=== PATIENT | male | born 1970 | race Native Hawaiian/Other Pacific Islander ===

== ENCOUNTER 2017-01-26 11:38 | Inpatient (IN) | payer OTHER ==
[2017-01-26] MEDS ORDERED: ZOFRAN IV ONE (12:15)
[2017-01-26] MEDS ORDERED: NACL 0.9% 1000 ML 1,000 ML IV ONE (12:15)
--- NOTE | 2017-01-26 12:21 | Emergency Department Report ---
- General Chief complaint: Hyperglycemia Stated complaint: DKA Time Seen by Provider: 01/26/17 12:04 Source: patient, EMS, spanish medical interpreter Mode of arrival: Stretcher Limitations: Language Barrier - History of Present Illness MD Complaint: generalized weakness, lack of energy -: Gradual Location: generalized Severity scale (0 -10): 6 Consistency: constant Improves with: none Worsens with: none Context: other (out of insulin for the last 6 months) Associated Symptoms: nausea/vomiting, syncope. denies: chest pain, confusion, dark stools, diaphoresis, dysuria, easy bruising, fever/chills, headaches, loss of appetite, shortness of breath - Related Data Home Medications Medication Instructions Recorded Confirmed Last Taken Insulin NPH Hum/Reg Insulin Hm 25 unit SQ BID 01/26/17 01/26/17 Unknown [HumuLIN 70-30 Vial] Allergies Allergy/AdvReac Type Severity Reaction Status Date / Time No Known Allergies Allergy Unverified 01/26/17 11:47 ED Review of Systems ROS: Stated complaint: DKA Other details as noted in HPI Comment: All other systems reviewed and negative ED Past Medical Hx - Past Medical History Previous Medical History?: Yes Hx Diabetes: Yes - Surgical History Past Surgical History?: No - Social History Smoking Status: Never Smoker Substance Use Type: None - Medications Home Medications: Home Medications Medication Instructions Recorded Confirmed Last Taken Type Insulin NPH Hum/Reg Insulin Hm 25 unit SQ BID 01/26/17 01/26/17 Unknown History [HumuLIN 70-30 Vial] ED Physical Exam - General Limitations: Language Barrier General appearance: alert, in no apparent distress - Head Head exam: Present: atraumatic, normocephalic - Eye Eye exam: Present: normal appearance, PERRL, EOMI - Neck Neck exam: Present: normal inspection - Respiratory Respiratory exam: Present: normal lung sounds bilaterally - Cardiovascular Cardiovascular Exam: Present: tachycardia - GI/Abdominal GI/Abdominal exam: Present: soft - exam: Present: normal inspection - Extremities Exam Extremities exam: Present: normal inspection, full ROM - Neurological Exam Neurological exam: Present: alert, altered, oriented X3, CN II-XII intact - Psychiatric Psychiatric exam: Present: normal affect ED Course Vital Signs 01/26/17 01/26/17 01/26/17 11:48 12:08 14:19 Temperature 97.4 F L 98.1 F 98.7 F Pulse Rate 101 H 104 H 107 H Respiratory 26 H 26 H Rate Blood Pressure 143/93 Blood Pressure 141/77 113/68 [Left] O2 Sat by Pulse 96 96 96 Oximetry ED Medical Decision Making - Lab Data Result diagrams: 01/26/17 12:23 01/26/17 15:11 - EKG Data When compared to previous EKG there are: no significant change Interpretation: no acute changes - Medical Decision Making Will need admisison for DKA , already on protocol, fluids and insulin given here , will monitor his K, talk to dr. thorpe and agree with admission, pt doing well and stable, Critical care time in (mins) excluding proc time.: 45 Critical care attestation.: If time is entered above; I have spent that time in minutes in the direct care of this critically ill patient, excluding procedure time. ED Disposition Clinical Impression: DKA (diabetic ketoacidoses) Disposition: OP ADMITTED IP TO THIS HOSP Is pt being admited?: Yes Does the pt Need Aspirin: No Condition: Critical Instructions: Diabetic Ketoacidosis (ED) Referrals: PRIMARY CARE, [Primary Care Provider] - 3-5 Days Time of Disposition: 14:47
[2017-01-26 12:46] LABS: Basophils % (Auto) 0.2 % (0.0-1.8); Hematocrit 34.1 % (35.5-45.6); Hemoglobin 11.2 gm/dl (11.8-15.2); Mean Corpuscular HGB Conc 33 % (32-34); Mean Corpuscular Hemoglobin 31 pg (28-32); Mean Corpuscular Volume 95 fl (84-94); Platelet Count 164 K/mm3 (140-440); Red Blood Count 3.59 M/mm3 (3.65-5.03); Red Cell Distribution Width 13.3 % (13.2-15.2); White Blood Count 9.2 K/mm3 (4.5-11.0)
[2017-01-26 12:50] LABS: Calcium 8.4 mg/dL (8.4-10.2); Chloride 87.6 mmol/L (98-107); Potassium 4.8 mmol/L (3.6-5.0)
[2017-01-26 12:50] LABS: Creatine Kinase MB 1.3 ng/mL (0.0-4.0)
--- NOTE | 2017-01-26 12:56 | XRay Report ---
ROUTINE CHEST, TWO VIEWS: HISTORY: Lightheadedness, dizziness. There is poor inspiration with mild bibasilar atelectasis. No consolidation, large pleural effusion or pneumothorax is identified. Normal heart size and pulmonary vascularity. IMPRESSION: No acute cardiopulmonary process.
[2017-01-26] MEDS ORDERED: NACL 0.9% 1000 ML 2,000 ML IV ONE (13:31)
[2017-01-26] MEDS ORDERED: D50W (25GM) IV PRN ×2 (13:33→20:43)
[2017-01-26] MEDS ORDERED: NovoLIN R 100 UNITS in NACL 0.9% 99 ML IV SCH (14:00)
--- NOTE | 2017-01-26 14:36 | Admit Criteria Form ---
Admission Criteria Documentation: DIABETES Clinical Indications for Admission to Inpatient Care (Place 'X' for any and all applicable criteria): Admission is indicated by presence of ALL (if I & II) or ANY ONE (if III or IV) of the following (1)(2)(3)(4): [X ]I. Diabetes is uncontrolled as indicated by ANY ONE of the following: [X ]a) Diabetic ketoacidosis as indicated by ALL of the following (8): [X ]i) Hyperglycemia (eg, plasma glucose greater than 200 mg /dL (11.1 mmol/L)) [X ]ii) Acidosis (eg, arterial pH less than 7.30, serum bicarbonate level less than 15 mEq/L (mmol/L)) [X ]iii) Moderate ketonuria or ketonemia [ ]b) Hyperglycemic hyperosmolar state as indicated by ALL of the following(9)(10): [ ]i) Neurologic dysfunction (eg, stupor, coma, hemiparesis , seizure)(13) [ ]ii) Plasma glucose greater than 600 mg/dL (33.3 mmol/L) [ ]iii) Serum osmolality greater than 320 mOsm/kg (mmol/kg) [ ]c) Severe signs or symptoms secondary to hyperglycemia indicated by ANY ONE of the following: [ ]i) Altered mental status(10) [ ]ii) Significant hypovolemia or dehydration [ ]iii) Intractable nausea or vomiting [ ]iv) Unexplained fever or severe infection [ ]v) Severe electrolyte abnormality (eg, hypokalemia, hyperkalemia, hypernatremia) [X ]II. Management at other levels of care (Also use Diabetes: Observation Care as appropriate) is not feasible because of ANY ONE of the following: [ X]a) Condition was not adequately corrected with treatment at other levels of care. [ ]b) Treatment at other levels of care is not appropriate because of condition severity (eg, hyperosmolar coma). [ ]III. Contraindications and/or Inappropriate clinical situations for Observational Care in patients with Diabetes, when ANY ONE of the following is required: [ ]a) Patient require specific diagnostic workup or therapeutic intervention 22 [ ]b) Patient with abnormal vital signs or altered mental status 23 [ ]IV. General contraindications and/or Inappropriate clinical situations for Observational Care in patients with Diabetes, when ANY ONE of the following is required: [ ]a) Prediction of prolongation of LOS based on ANY ONE of the following may be considered as a contraindication for observational care 2, 3, 4, 5, 6, 7, 8, 9, 10, 11 [ ]i) Age > 65 yrs. [ ]ii) Patient arriving by ambulance [ ]iii) Patient with high acuity [ ]iv) Patient requiring vital sign monitoring [ ]v) Patient on IV medication [ ]b) Systolic blood pressures 180mmHg 3,12 [ ]c) Patient with altered mental status including delirium and other alteration of consciousness, (3) [ ]d) Patient whose discharge disposition will be to a halfway home or rehabilitation home should not be managed in Emergency Department Observation Unit. CMS rule requires 3 days hospital stay before such placement.3,13 [ ]e) Patient with failure to thrive due to broad array of etiologies 3,16,17 [ ]f) Inability to ambulate 3,14 Extended stay beyond goal length of stay may be needed for(3)(20): [ ]a) Treatment of precipitating causes [ ]b) Development of hypoglycemia [ ]c) Complications of treatment [ ]d) Complications of decompensated diabetes (eg, acute gastric dilatation, persistent metabolic or neurologic derangement) [ ]e) Active Comorbidities [ ]f) Older patients( 65 years or older) The original [employer] content created by [employer] has been revised. The portions of the content which have been revised are identified through the use of italic text or in bold,and [facility] has neither reviewed nor approved the modified material. All other unmodified content is copyright [employer]. Please see references footnoted in the original [facility] 2016 Admission Criteria Met: Yes
[2017-01-26 14:50] LABS: Magnesium 1.9 mg/dL (1.7-2.3); Phosphorous 3.3 mg/dL (2.5-4.5)
[2017-01-26 15:59] LABS: Calcium 7.7 mg/dL (8.4-10.2); Chloride 98.3 mmol/L (98-107); Potassium 4.1 mmol/L (3.6-5.0)
[2017-01-26 16:18] LABS: Bacteria,Urine 1+ /HPF (Negative); Bilirubin,Urine NEG (Negative); Blood,Urine SM (Negative); Ketones,Urine 80 mg/dL (Negative); Leukocyte Esterase,Urine NEG (Negative); Mucus,Urine FEW /HPF; Nitrite,Urine NEG (Negative); Urobilinogen,Urine < 2.0 mg/dL (<2.0)
[2017-01-26 17:57] LABS: Calcium 7.6 mg/dL (8.4-10.2); Chloride 96.6 mmol/L (98-107)
[2017-01-26 19:39] LABS: Anion Gap 28 mmol/L; Blood Urea Nitrogen 42 mg/dL (9-20); Carbon Dioxide 11 mmol/L (22-30); Chloride 96.6 mmol/L (98-107); Sodium 132 mmol/L (137-145)
[2017-01-26 19:40] LABS: Calcium 7.6 mg/dL (8.4-10.2); Glucose 418 mg/dL (75-100)
[2017-01-26] MEDS ORDERED: D5W/0.45% NACL/KCL 20 MEQ 20 MEQ/1,000 ML BAG IV SCH (20:00)
[2017-01-26 20:29] LABS: BUN/Creatinine Ratio 26.42; Calcium 7.8 mg/dL (8.4-10.2); Chloride 103.2 mmol/L (98-107); Potassium 3.8 mmol/L (3.6-5.0)
[2017-01-26] MEDS ORDERED: MILK OF MAGNESIA PO PRN (20:40)
[2017-01-26] MEDS ORDERED: ALUM-MAG HYDROX-SIMETH 200-200-20MG/5ML PO PRN (20:40)
[2017-01-26] MEDS ORDERED: DULCOLAX PR PRN (20:40)
[2017-01-26] MEDS ORDERED: DILAUDID IV PRN (20:40)
--- NOTE | 2017-01-26 20:40 | History and Physical Report ---
History of Present Illness Date of examination: 01/26/17 Date of admission: 01/26/17 Chief complaint: Generalized weakness and nausea for 2 days. History of present illness: Generalized weakness, lack of energy -: Gradual Location: generalized Severity scale (0 -10): 6 Consistency: constant Improves with: none Worsens with: none Context: other (out of insulin for the last 6 months) Associated Symptoms: nausea/vomiting, syncope. denies: chest pain, confusion, dark stools, diaphoresis, dysuria, easy bruising, fever/chills, headaches, loss of appetite, shortness of breath Past History Past Medical History: diabetes (IDDM-non compliant) Past Surgical History: valve replacement, Other Social history: lives with family, full code. denies: smoking, alcohol abuse Family history: diabetes Medications and Allergies Allergies Allergy/AdvReac Type Severity Reaction Status Date / Time No Known Allergies Allergy Unverified 01/26/17 11:47 Home Medications Medication Instructions Recorded Confirmed Last Taken Type Insulin NPH Hum/Reg Insulin Hm 25 unit SQ BID 01/26/17 01/26/17 Unknown History [HumuLIN 70-30 Vial] Active Meds: Active Medications Dextrose (D50w (25gm)) 0 ml IV ONCE PRN PRN Reason: Hypoglycemia Insulin Human Regular 100 (units/ Sodium Chloride) 100 mls @ 1 mls/hr IV TITR SANDHYA; 1 UNITS/HR PRN Reason: Protocol Last Titration: 01/26/17 20:37 Dose: 3 units/hr, 3 mls/hr Potassium Chloride/Dextrose/Sod Cl (D5w/0.45% Nacl/Kcl 20 Meq) 20 meq in 1,000 mls @ 125 mls/hr IV DIRECT SANDHYA Review of Systems All systems: negative Constitutional: no weight loss, no weight gain, no fever, no chills Ears, nose, mouth and throat: no dysphagia, no hoarseness, no sore throat Cardiovascular: syncope, no chest pain, no orthopnea, no lightheadedness, no shortness of breath Respiratory: no cough, no cough with sputum, no dyspnea on exertion, no congestion Gastrointestinal: nausea, vomiting (3 to 4 times) Genitourinary Male: no dysuria, no hematuria, no flank pain, no discharge, no urinary frequency, no urinary hesitancy Musculoskeletal: no neck stiffness, no neck pain Integumentary: no rash, no pruritis, no redness Neurological: syncope, no seizures Psychiatric: no anxiety, no depression Endocrine: polyphagia, excessive thirst, polydipsia, polyuria, high blood sugars , other (Non compliant) Exam - Constitutional Vitals: Temp Pulse Resp BP Pulse Ox 98.7 F 102 H 37 H 128/69 96 01/26/17 14:19 01/26/17 20:00 01/26/17 20:00 01/26/17 20:00 01/26/17 20:00 General appearance: Present: no acute distress, well-nourished - EENT Eyes: Present: PERRL ENT: hearing intact, clear oral mucosa - Neck Neck: Present: supple, normal ROM - Respiratory Respiratory effort: normal Respiratory: bilateral: CTA - Cardiovascular Heart Sounds: Present: S1 & S2. Absent: rub, click - Extremities Extremities: pulses symmetrical, No edema Peripheral Pulses: within normal limits - Abdominal General gastrointestinal: Present: soft, non-tender, non-distended, normal bowel sounds Male genitourinary: Present: normal - Integumentary Integumentary: Present: clear, warm, dry - Musculoskeletal Musculoskeletal: gait normal, strength equal bilaterally - Psychiatric Psychiatric: appropriate mood/affect, intact judgment & insight - Neurologic Neurologic: CNII-XII intact, moves all extremities Results - Labs CBC & Chem 7: 01/27/17 04:51 01/27/17 04:51 Labs: Laboratory Last Values WBC 9.2 K/mm3 (4.5-11.0) 01/26/17 12:23 RBC 3.59 M/mm3 (3.65-5.03) L 01/26/17 12:23 Hgb 11.2 gm/dl (11.8-15.2) L 01/26/17 12:23 Hct 34.1 % (35.5-45.6) L 01/26/17 12:23 MCV 95 fl (84-94) H 01/26/17 12:23 MCH 31 pg (28-32) 01/26/17 12:23 MCHC 33 % (32-34) 01/26/17 12:23 RDW 13.3 % (13.2-15.2) 01/26/17 12:23 Plt Count 164 K/mm3 (140-440) 01/26/17 12:23 Lymph % (Auto) 7.4 % (13.4-35.0) L 01/26/17 12:23 [place] % (Auto) 7.3 % (0.0-7.3) 01/26/17 12:23 Eos % (Auto) 0.0 % (0.0-4.3) 01/26/17 12:23 Baso % (Auto) 0.2 % (0.0-1.8) 01/26/17 12:23 Lymph # 0.7 K/mm3 (1.2-5.4) L 01/26/17 12:23 [place] # 0.7 K/mm3 (0.0-0.8) 01/26/17 12:23 Eos # 0.0 K/mm3 (0.0-0.4) 01/26/17 12: Baso # 0.0 K/mm3 (0.0-0.1) 01/26/17 12:23 Seg Neutrophils % 85.1 % (40.0-70.0) H 01/26/17 12:23 Seg Neutrophils # 7.8 K/mm3 (1.8-7.7) H 01/26/17 12:23 VBG pH 7.210 (7.320-7.420) L 01/26/17 12:23 Sodium 133 mmol/L (137-145) L 01/26/17 19:41 Potassium 3.8 mmol/L (3.6-5.0) 01/26/17 19:41 Chloride 103.2 mmol/L (98-107) 01/26/17 19:41 Carbon Dioxide 18 mmol/L (22-30) L D 01/26/17 19:41 Anion Gap 16 mmol/L 01/26/17 19:41 BUN 37 mg/dL (9-20) H 01/26/17 19:41 Creatinine 1.4 mg/dL (0.8-1.5) 01/26/17 19:41 Estimated GFR 55 ml/min 01/26/17 19:41 BUN/Creatinine Ratio 26.42 % 01/26/17 19:41 Glucose 221 mg/dL (75-100) H 01/26/17 19:41 POC Glucose 189 (70-105) H 01/26/17 20:33 Calcium 7.8 mg/dL (8.4-10.2) L 01/26/17 19:41 Phosphorus 3.3 mg/dL (2.5-4.5) 01/26/17 14:02 Magnesium 1.9 mg/dL (1.7-2.3) 01/26/17 14:02 Total Creatine Kinase 29 units/L (55-170) L 01/26/17 12:25 CK-MB (CK-2) 1.3 ng/mL (0.0-4.0) 01/26/17 12:25 CK-MB (CK-2) Rel Index 4.4 (0-4) H 01/26/17 12:25 Troponin T < 0.010 ng/mL (0.00-0.029) 01/26/17 12:25 Urine Color Straw (Yellow) 01/26/17 14:26 Urine Turbidity Clear (Clear) 01/26/17 14:26 Urine pH 5.0 (5.0-7.0) 01/26/17 14:26 Ur Specific [place] 1.021 (1.003-1.030) 01/26/17 14:26 Urine Protein 30 mg/dl mg/dL (Negative) 01/26/17 14:26 Urine Glucose (UA) >=500 mg/dL (Negative) 01/26/17 14:26 Urine Ketones 80 mg/dL (Negative) 01/26/17 14:26 Urine Blood Sm (Negative) 01/26/17 14:26 Urine Nitrite Neg (Negative) 01/26/17 14:26 Urine Bilirubin Neg (Negative) 01/26/17 14:26 Urine Urobilinogen < 2.0 mg/dL (<2.0) 01/26/17 14:26 Ur Leukocyte Esterase Neg (Negative) 01/26/17 14:26 Urine WBC (Auto) 2.0 /HPF (0.0-6.0) 01/26/17 14:26 Urine RBC (Auto) 4.0 /HPF (0.0-6.0) 01/26/17 14:26 Urine Bacteria (Auto) 1+ /HPF (Negative) 01/26/17 14:26 Urine Mucus Few /HPF 01/26/17 14:26 Ketones mmol/L (-0.28) 01/26/17 12:23 Short CBC 01/26/17 01/27/17 Range/Units 12:23 04:51 WBC 9.2 8.9 (4.5-11.0) K/mm3 Hgb 11.2 L 10.8 L (11.8-15.2) gm/dl Hct 34.1 L 31.8 L (35.5-45.6) % Plt Count 164 193 (140-440) K/mm3 BMP 01/26/17 01/26/17 01/26/17 12:23 14:02 15:11 Sodium 127 L 132 L 135 L Potassium 4.8 4.0 4.1 Chloride 87.6 L 96.6 L 98.3 Carbon Dioxide 11 L 11 L 12 L BUN 46 H 42 H 39 H Creatinine 2.0 H 1.5 1.5 Glucose 645 H* 418 H 358 H Calcium 8.4 7.6 L 7.7 L 01/26/17 01/26/17 01/26/17 17:58 19:41 20:52 Sodium 132 L 133 L 135 L Potassium 4.0 3.8 3.6 Chloride 96.6 L 103.2 101.8 Carbon Dioxide 11 L 18 L D 18 L BUN 42 H 37 H 34 H Creatinine 1.5 1.4 1.5 Glucose 418 H 221 H 198 H Calcium 7.6 L 7.8 L 7.9 L 01/26/17 01/27/17 01/27/17 23:19 00:55 04:51 Sodium 137 139 Potassium 3.8 3.8 Chloride 106.2 108.0 H Carbon Dioxide 14 L 14 L 19 L BUN 34 H 33 H 31 H Creatinine 1.5 1.4 1.3 Glucose 301 H 330 H 149 H Calcium 7.7 L 7.5 L 8.1 L Cardiac Enzymes 01/26/17 01/26/17 Range/Units 12:25 12:25 Total Creatine Kinase 29 L (55-170) units/L CK-MB (CK-2) 1.3 (0.0-4.0) ng/mL Troponin T < 0.010 (0.00-0.029) ng/mL Liver Function 01/27/17 Range/Units 04:51 Total Bilirubin 0.5 (0.1-1.2) mg/dL AST 7 (5-40) units/L ALT 5 L (7-56) units/L Alkaline Phosphatase 81 (35-129) units/L Albumin 2.5 L (3.9-5) g/dL Urine 01/26/17 Range/Units 14:26 Urine Color Straw (Yellow) Urine pH 5.0 (5.0-7.0) Ur Specific [place] 1.021 (1.003-1.030) Urine Protein 30 mg/dl (Negative) mg/dL Urine Glucose (UA) >=500 (Negative) mg/dL Assessment and Plan Advance Directives: Yes (Full code) VTE prophylaxis?: Chemical Plan of care discussed with patient/family: Yes - Patient Problems (1) DKA (diabetic ketoacidoses) Current Visit: Yes Status: Acute Qualifiers: Diabetes mellitus complication detail: D Plan to address problem: Very non compliant .Not taking his insulin for 6 months.Patient was not counselled b/c of language barrier.To try again tomorrow with the help of fmily or vest backer. (2) Acute renal failure Current Visit: Yes Status: Acute Qualifiers: Acute renal failure type: unspecified Qualified Code(s): N17.9 - Acute kidney failure, unspecified Plan to address problem: IV fluids for now. (3) DVT prophylaxis Current Visit: Yes Status: Acute Plan to address problem: on Lovenox
[2017-01-26 21:22] LABS: BUN/Creatinine Ratio 22.66; Calcium 7.9 mg/dL (8.4-10.2); Chloride 101.8 mmol/L (98-107); Magnesium 1.9 mg/dL (1.7-2.3); Phosphorous 1.8 mg/dL (2.5-4.5); Potassium 3.6 mmol/L (3.6-5.0)
[2017-01-26] MEDS: DILAUDID IV PRN (23:41)
[2017-01-26] MEDS: ZOFRAN IV PRN (23:41)
[2017-01-27 00:05] LABS: BUN/Creatinine Ratio 22.66; Calcium 7.7 mg/dL (8.4-10.2); Chloride 99.4 mmol/L (98-107)
[2017-01-27] MEDS: NovoLIN R 100 UNITS in NACL 0.9% 99 ML IV SCH ×3 (00:26→06:30)
[2017-01-27 01:47] LABS: BUN/Creatinine Ratio 23.57; Calcium 7.5 mg/dL (8.4-10.2); Chloride 106.2 mmol/L (98-107); Potassium 3.8 mmol/L (3.6-5.0)
[2017-01-27 05:27] LABS: Basophils % (Auto) 0.2 % (0.0-1.8); Hematocrit 31.8 % (35.5-45.6); Hemoglobin 10.8 gm/dl (11.8-15.2); Mean Corpuscular HGB Conc 34 % (32-34); Mean Corpuscular Hemoglobin 31 pg (28-32); Platelet Count 193 K/mm3 (140-440); Red Blood Count 3.49 M/mm3 (3.65-5.03); Red Cell Distribution Width 12.7 % (13.2-15.2); White Blood Count 8.9 K/mm3 (4.5-11.0)
[2017-01-27 05:51] LABS: Albumin 2.5 g/dL (3.9-5); Albumin/Globulin Ratio 0.7 %; BUN/Creatinine Ratio 23.84; Bilirubin,Total 0.5 mg/dL (0.1-1.2); Calcium 8.1 mg/dL (8.4-10.2); Potassium 3.8 mmol/L (3.6-5.0)
[2017-01-27 06:06] LABS: Mean Corpuscular Volume 93 fl (84-94)
[2017-01-27 09:19] LABS: Magnesium 1.9 mg/dL (1.7-2.3); Phosphorous 1.1 mg/dL (2.5-4.5)
[2017-01-27] MEDS ORDERED: SODIUM PHOSPHATE 45 MMOL in NACL 0.9% 500 ML 500 ML IV ONE (10:00)
--- NOTE | 2017-01-27 11:06 | Consultation ---
History of Present Illness Consult date: 01/27/17 Requesting physician: PUSHPA WORKMAN Reason for consult: other (DKA) History of present illness: PULMONARY CONSULT NOTE (Full dictation # [id number]) please see dictated notes for full details Past History Past Medical History: diabetes (IDDM-non compliant) Past Surgical History: valve replacement, Other Social history: lives with family, full code. denies: smoking, alcohol abuse Family history: diabetes Medications and Allergies Allergies Allergy/AdvReac Type Severity Reaction Status Date / Time No Known Allergies Allergy Unverified 01/26/17 11:47 Home Medications Medication Instructions Recorded Confirmed Last Taken Type Insulin NPH Hum/Reg Insulin Hm 25 unit SQ BID 01/26/17 01/26/17 Unknown History [HumuLIN 70-30 Vial] Active Meds: Active Medications Al Hydrox/Mg Hydrox/Simethicone (Alum-Mag Hydrox-Simeth [phone]/5ml) 30 ml PO Q4H PRN PRN Reason: Indigestion Bisacodyl (Dulcolax) 10 mg AK QDAY PRN PRN Reason: constipation unrelieved by MOM Dextrose (D50w (25gm)) 0 ml IV PRN PRN PRN Reason: Hypoglycemia Hydromorphone HCl (Dilaudid) 0.5 mg IV Q3H PRN PRN Reason: Pain , Severe (7-10) Last Admin: 01/26/17 23:41 Dose: 0.5 mg Potassium Chloride/Dextrose/Sod Cl (D5w/0.45% Nacl/Kcl 20 Meq) 20 meq in 1,000 mls @ 125 mls/hr IV DIRECT SANDHYA Last Admin: 01/26/17 19:40 Dose: 125 mls/hr Insulin Human Regular 100 (units/ Sodium Chloride) 100 mls @ 1 mls/hr IV TITR SANDHYA; 1 UNITS/HR PRN Reason: Protocol Last Admin: 01/27/17 06:30 Dose: 2 units/hr, 2 mls/hr Sodium Phosphate 45 mmol/ (Sodium Chloride) 515 mls @ 84 mls/hr IV ONCE ONE Stop: 01/27/17 16:07 Potassium Phosphate 15 mmol/ (Sodium Chloride) 255 mls @ 125 mls/hr IV ONCE ONE Stop: 01/27/17 20:02 Insulin Aspart (Novolog) 0 units SUB-Q ACHS SANDHYA PRN Reason: Protocol Insulin Human Isoph/Insulin Regular (Novolin 70/30) 10 unit SUB-Q BIDDIAB SANDHYA Magnesium Hydroxide (Milk Of Magnesia) 30 ml PO Q4H PRN PRN Reason: Constipation Ondansetron HCl (Zofran) 4 mg IV Q4H PRN PRN Reason: Nausea And Vomiting Last Admin: 01/26/17 23:41 Dose: 4 mg Physical Examination Vital signs: Vital Signs Temp Pulse BP Pulse Ox 97.4 F L 101 H 143/93 96 01/26/17 11:48 01/26/17 11:48 01/26/17 11:48 01/26/17 11:48 Results - Laboratory Findings CBC and BMP: 01/27/17 04:51 01/27/17 04:51 Abnormal lab findings: Abnormal Labs 01/26/17 01/26/17 01/26/17 20:52 20:52 23:09 RBC Hgb Hct RDW Lymph % (Auto) [place] % (Auto) Lymph # [place] # Seg Neutrophils % Sodium 135 L Chloride Carbon Dioxide 18 L BUN 34 H Glucose 198 H POC Glucose 384 H Hemoglobin A1c Calcium 7.9 L Phosphorus 1.8 L D ALT Total Protein Albumin 01/26/17 01/27/17 01/27/17 23:19 00:22 00:55 RBC Hgb Hct RDW Lymph % (Auto) [place] % (Auto) Lymph # [place] # Seg Neutrophils % Sodium Chloride Carbon Dioxide 14 L 14 L BUN 34 H 33 H Glucose 301 H 330 H POC Glucose 339 H Hemoglobin A1c Calcium 7.7 L 7.5 L Phosphorus ALT Total Protein Albumin 01/27/17 01/27/17 01/27/17 01:22 02:39 03:47 RBC Hgb Hct RDW Lymph % (Auto) [place] % (Auto) Lymph # [place] # Seg Neutrophils % Sodium Chloride Carbon Dioxide BUN Glucose POC Glucose 301 H 261 H 223 H Hemoglobin A1c Calcium Phosphorus ALT Total Protein Albumin 01/27/17 01/27/17 01/27/17 04:32 04:51 04:51 RBC 3.49 L Hgb 10.8 L Hct 31.8 L RDW 12.7 L Lymph % (Auto) 10.1 L [place] % (Auto) 10.4 H Lymph # 0.9 L [place] # 0.9 H Seg Neutrophils % 79.3 H Sodium Chloride 108.0 H Carbon Dioxide 19 L BUN 31 H Glucose 149 H POC Glucose 165 H Hemoglobin A1c Calcium 8.1 L Phosphorus ALT 5 L Total Protein 6.0 L Albumin 2.5 L 01/27/17 01/27/17 08:29 08:29 RBC Hgb Hct RDW Lymph % (Auto) [place] % (Auto) Lymph # [place] # Seg Neutrophils % Sodium Chloride Carbon Dioxide BUN Glucose POC Glucose Hemoglobin A1c 16.1 H Calcium Phosphorus 1.1 L D ALT Total Protein Albumin
[2017-01-27] MEDS ORDERED: NOVOLOG SUB-Q SCH (11:30)
[2017-01-27] MEDS ORDERED: PROVENTIL IH PRN (11:47)
[2017-01-27] MEDS: DILAUDID IV PRN ×2 (12:50→20:45)
--- NOTE | 2017-01-27 12:51 | Progress Note ---
Assessment and Plan Assessment and plan: --Diabetic ketoacidosis On insulin drip, patient blood sugars are reasonable control A gap Closed, acidosis significant improvement Patient is tolerating oral diet Will DC insulin drip, start long-acting insulin 7030, Accu-Chek sliding scale coverage and ADA diet Diabetic education, hemoglobin A1c 16.1 Case management to assist with home health nurse to monitor blood sugars --Hypophosphatemia Replace per protocol and monitor levels --Acute renal failure Probably prerenal, secondary to ATN Mild improvement, continue vigorous IV hydration, closely monitor renal function Avoid nephrotoxic medication, nephrology following --Moderate protein calorie malnutrition Supportive care nutrition supplements --Medical non-compliance Counseling done patient strongly advised to adhere to diet and treatment plan Verbalized understanding --DC planning per case management Patient's condition treatment plan discussed in detail with the patient His nurse and the case management Closely monitor blood sugars, if reasonable levels, patient can be transferred out of ICU Possible discharge in 1-2 days if stable Critical care time 32 minutes History Interval history: Patient seen and evaluated in the ICU and medical records reviewed No new events reported by the nursing staff Admitted with DKA on insulin drip Blood sugars are reasonable levels Patient is alert awake oriented 3, mild nausea no vomiting, denies any headache or dizziness Hospitalist Physical - Constitutional Vitals: Temp Pulse Resp BP Pulse Ox 98.5 F 105 H 23 106/64 93 01/27/17 08:00 01/27/17 07:10 01/27/17 07:10 01/27/17 07:10 01/27/17 12:22 General appearance: Present: no acute distress, well-nourished - EENT Eyes: Present: PERRL, EOM intact - Neck Neck: Present: supple, normal ROM - Respiratory Respiratory effort: normal Respiratory: bilateral: diminished, negative: rales, rhonchi, wheezing - Cardiovascular Rhythm: regular Heart Sounds: Present: S1 & S2 - Extremities Extremities: no ischemia, pulses intact, pulses symmetrical Peripheral Pulses: within normal limits - Abdominal General gastrointestinal: soft, non-tender, non-distended, normal bowel sounds - Integumentary Integumentary: Present: clear, warm - Psychiatric Psychiatric: appropriate mood/affect, cooperative - Neurologic Neurologic: CNII-XII intact, moves all extremities Results - Labs CBC & Chem 7: 01/27/17 04:51 01/27/17 04:51 Labs: Laboratory Last Values WBC 8.9 K/mm3 (4.5-11.0) 01/27/17 04:51 RBC 3.49 M/mm3 (3.65-5.03) L 01/27/17 04:51 Hgb 10.8 gm/dl (11.8-15.2) L 01/27/17 04:51 Hct 31.8 % (35.5-45.6) L 01/27/17 04:51 MCV 93 fl (84-94) 01/27/17 04:51 MCH 31 pg (28-32) 01/27/17 04:51 MCHC 34 % (32-34) 01/27/17 04:51 RDW 12.7 % (13.2-15.2) L 01/27/17 04:51 Plt Count 193 K/mm3 (140-440) 01/27/17 04:51 Lymph % (Auto) 10.1 % (13.4-35.0) L 01/27/17 04:51 [place] % (Auto) 10.4 % (0.0-7.3) H 01/27/17 04:51 Eos % (Auto) 0.0 % (0.0-4.3) 01/27/17 04:51 Baso % (Auto) 0.2 % (0.0-1.8) 01/27/17 04:51 Lymph # 0.9 K/mm3 (1.2-5.4) L 01/27/17 04:51 [place] # 0.9 K/mm3 (0.0-0.8) H 01/27/17 04:51 Eos # 0.0 K/mm3 (0.0-0.4) 01/27/17 04:51 Baso # 0.0 K/mm3 (0.0-0.1) 01/27/17 04:51 Seg Neutrophils % 79.3 % (40.0-70.0) H 01/27/17 04:51 Seg Neutrophils # 7.0 K/mm3 (1.8-7.7) 01/27/17 04:51 VBG pH 7.210 (7.320-7.420) L 01/26/17 12:23 Sodium 139 mmol/L (137-145) 01/27/17 04:51 Potassium 3.8 mmol/L (3.6-5.0) 01/27/17 04:51 Chloride 108.0 mmol/L (98-107) H 01/27/17 04:51 Carbon Dioxide 19 mmol/L (22-30) L 01/27/17 04:51 Anion Gap 16 mmol/L 01/27/17 04:51 BUN 31 mg/dL (9-20) H 01/27/17 04:51 Creatinine 1.3 mg/dL (0.8-1.5) 01/27/17 04:51 Estimated GFR 59 ml/min 01/27/17 04:51 BUN/Creatinine Ratio 23.84 % 01/27/17 04:51 Glucose 149 mg/dL (75-100) H 01/27/17 04:51 POC Glucose 165 (70-105) H 01/27/17 04:32 Hemoglobin A1c 16.1 % (4-6) H 01/27/17 08:29 Calcium 8.1 mg/dL (8.4-10.2) L 01/27/17 04:51 Phosphorus 1.1 mg/dL (2.5-4.5) L D 01/27/17 08:29 Magnesium 1.9 mg/dL (1.7-2.3) 01/27/17 08:29 Total Bilirubin 0.5 mg/dL (0.1-1.2) 01/27/17 04:51 AST 7 units/L (5-40) 01/27/17 04:51 ALT 5 units/L (7-56) L 01/27/17 04:51 Alkaline Phosphatase 81 units/L (35-129) 01/27/17 04:51 Total Creatine Kinase 29 units/L (55-170) L 01/26/17 12:25 CK-MB (CK-2) 1.3 ng/mL (0.0-4.0) 01/26/17 12:25 CK-MB (CK-2) Rel Index 4.4 (0-4) H 01/26/17 12:25 Troponin T < 0.010 ng/mL (0.00-0.029) 01/26/17 12:25 Total Protein 6.0 g/dL (6.3-8.2) L 01/27/17 04:51 Albumin 2.5 g/dL (3.9-5) L 01/27/17 04:51 Albumin/Globulin Ratio 0.7 % 01/27/17 04:51 Urine Color Straw (Yellow) 01/26/17 14:26 Urine Turbidity Clear (Clear) 01/26/17 14:26 Urine pH 5.0 (5.0-7.0) 01/26/17 14:26 Ur Specific [place] 1.021 (1.003-1.030) 01/26/17 14:26 Urine Protein 30 mg/dl mg/dL (Negative) 01/26/17 14:26 Urine Glucose (UA) >=500 mg/dL (Negative) 01/26/17 14:26 Urine Ketones 80 mg/dL (Negative) 01/26/17 14:26 Urine Blood Sm (Negative) 01/26/17 14:26 Urine Nitrite Neg (Negative) 01/26/17 14:26 Urine Bilirubin Neg (Negative) 01/26/17 14:26 Urine Urobilinogen < 2.0 mg/dL (<2.0) 01/26/17 14:26 Ur Leukocyte Esterase Neg (Negative) 01/26/17 14:26 Urine WBC (Auto) 2.0 /HPF (0.0-6.0) 01/26/17 14:26 Urine RBC (Auto) 4.0 /HPF (0.0-6.0) 01/26/17 14:26 Urine Bacteria (Auto) 1+ /HPF (Negative) 01/26/17 14:26 Urine Mucus Few /HPF 01/26/17 14:26 Ketones mmol/L (-0.28) 01/26/17 12:23
[2017-01-27 14:11] LABS: Anion Gap 14 mmol/L; BUN/Creatinine Ratio 21.81; Blood Urea Nitrogen 24 mg/dL (9-20); Calcium 7.5 mg/dL (8.4-10.2); Carbon Dioxide 18 mmol/L (22-30); Chloride 104.4 mmol/L (98-107); Glucose 223 mg/dL (75-100); Potassium 3.5 mmol/L (3.6-5.0); Sodium 133 mmol/L (137-145)
[2017-01-27 14:43] LABS: ISTAT Base Excess -9; ISTAT HCO3 16.8; ISTAT PCO2 30.6 (35-45); ISTAT PH 7.348 (7.35-7.45); ISTAT PO2 51 (80-105); ISTAT SO2 84; ISTAT TCO2 18
[2017-01-27 16:52] LABS: Anion Gap 17 mmol/L; BUN/Creatinine Ratio 19.16; Blood Urea Nitrogen 23 mg/dL (9-20); Calcium 7.9 mg/dL (8.4-10.2); Carbon Dioxide 19 mmol/L (22-30); Chloride 102.1 mmol/L (98-107); Glucose 200 mg/dL (75-100); Potassium 3.4 mmol/L (3.6-5.0); Sodium 135 mmol/L (137-145)
[2017-01-27] MEDS ORDERED: KPHOS 15 MMOL in NACL 0.9% 250ML 250 ML IV ONE (18:00)
[2017-01-27] MEDS: LOVENOX SUB-Q SCH (20:20)
[2017-01-27 20:53] LABS: Anion Gap 18 mmol/L; BUN/Creatinine Ratio 19.09; Blood Urea Nitrogen 21 mg/dL (9-20); Calcium 7.4 mg/dL (8.4-10.2); Carbon Dioxide 18 mmol/L (22-30); Chloride 102.2 mmol/L (98-107); Glucose 246 mg/dL (75-100); Potassium 3.4 mmol/L (3.6-5.0); Sodium 135 mmol/L (137-145)
--- NOTE | 2017-01-27 23:55 | Consultation ---
CONSULTING PHYSICIAN: Bonnie Moore MD REASON FOR CONSULTATION: Need for ICU admission for IV insulin therapy, DKA. CHIEF COMPLAINT AND HISTORY OF PRESENT ILLNESS: The patient is a 46-year-old male with past medical history according to records significant for a diagnosis of diabetes, although the patient denies ever knowing that he has diabetes. Apparently, he is noncompliant with his medications and has not been using it for about 6 months, came into the Emergency Room complaining of nausea, vomiting, generalized weakness, generalized body aches. He was evaluated in the Emergency Room. The exam was consistent with diabetic ketoacidosis. He required IV insulin therapy. Request was made for ICU admission, it was granted. When I stopped by to see him, he was laying in bed. He was on about 2-3 liters of oxygen by nasal cannula and his oxygen sats were around 87-88%. He did admit to nausea and vomiting prior to admission, could not tell about overt aspiration. He denied any chest pains in particular. He has a remote tobacco smoking history, he tells me about less than 10 pack years. That really is as much of the history of presentation as I have. PAST MEDICAL HISTORY: Again, significant for a diagnosis of diabetes. PAST SURGICAL HISTORY: He has had some what is described as a valve replacement. It is unclear what valve. MEDICATIONS: He was on at the time I stopped by to see him, according to the medication administration record included the following: He was on p.r.n. milk of magnesia, Dulcolax 10 mg per rectum daily p.r.n., p.r.n. Dilaudid 0.5 mg IV q.3h. p.r.n. severe pain. He had been on an insulin drip, I think about 4 units per hour, about to start 70/30 insulin. Zofran 4 mg IV q.4h. p.r.n. He had potassium phosphate replacement. ALLERGIES: No known drug allergies. DIET: Petite gentleman. Denies significant weight loss or gain in preceding few weeks to months. FAMILY AND SOCIAL HISTORY: Lives in the community with the family, has a less than 10 pack year tobacco smoking history. Denies alcohol or illicit drug use or abuse. There is a family history of diabetes. REVIEW OF SYSTEMS: No loss of consciousness. No new onset seizures. No new onset focal weakness. No gross hematochezia or melena. No gross hematuria or dysuria. No hematemesis. He did have some emesis. No hemoptysis. No palpitations. Complete review of systems obtained. Pertinent positives and/or negatives as in the body of history above, otherwise they are noncontributory. PHYSICAL EXAMINATION: VITAL SIGNS: At presentation in the Emergency Room, he was afebrile, temperature 97.4, pulse was 101, respiratory rate was 16, blood pressure 143/93, oxygen sats were 96%, inspired oxygen concentration was not recorded at the time. HEAD, EYES, EARS, NOSE, AND THROAT: Pupils are equal, round, about 3-4 mm, reactive to light. Extraocular muscle movements appeared intact. Grossly, there were no palpable lymph nodes in the supraclavicular or submandibular lymph node chains. LUNGS: Auscultation of both lung acevedo reveals faint bibasilar rales, slightly diminished bilateral breath sounds, no wheezing. HEART: Heart sounds 1 and 2 were heard. There were regular rate and rhythm at the time of my evaluation. ABDOMEN: Soft, full, bowel sounds are positive, mildly tender. EXTREMITIES: Without overt digital clubbing, cyanosis, or pedal edema. NEUROLOGIC: The exam was grossly nonfocal. LABORATORY DATA: From my review are as follows: Admission white cell count 9200 with a hemoglobin of 11.3, hematocrit of 34.1, platelets of 164. Venous blood gas showed a pH of 7.21. Serum sodium was 135, potassium 4.1, chloride 98, bicarbonate 12, BUN 39, creatinine 1.5, glucose 358. Initial [id number] glucose was greater than 500. Cardiac enzymes, troponin within normal limits. Urinalysis negative for nitrites and leukocyte esterase. Urine ketones, not yet resulted. Radiographic studies have been reviewed. I have also reviewed the radiologist's interpretation. I am not so sure that I agree with them. It appears that there is a process in the right upper lobe region medially, it may be due to the penetration. The film is certainly to some extent over penetrated. I do not see any gross pneumothorax. Cardiovascular silhouette is within normal limits. He may have some calcified granulomata. There appears to be eventration of the right hemidiaphragm. ASSESSMENT AND PLAN: We have a middle-aged gentleman in with diabetic ketoacidosis, appropriately needing ICU admission. I am bothered about the hypoxemia, though an arterial blood gas will be ordered. He will be put on p.r.n. bronchodilators, aspiration precautions will be maintained. He will be transitioned to a long acting insulin therapy. I will put him on GI prophylaxis as well as DVT prophylaxis. Flu and pneumonia vaccination will be per protocol and I believe, he is now telling me that he is on home oxygen, I will see if that is indeed the case. Thank you very much for the consult Dr. Moore. We will follow along and make further recommendations as picture progresses/becomes clearer. JOB# [id number] BLAINE/GALO
[2017-01-28] MEDS: DILAUDID IV PRN ×3 (01:28→23:05)
[2017-01-28 05:58] LABS: Hematocrit 28.3 % (35.5-45.6); Hemoglobin 9.6 gm/dl (11.8-15.2); Mean Corpuscular HGB Conc 34 % (32-34); Mean Corpuscular Hemoglobin 31 pg (28-32); Mean Corpuscular Volume 91 fl (84-94); Platelet Count 176 K/mm3 (140-440); Red Blood Count 3.11 M/mm3 (3.65-5.03); Red Cell Distribution Width 12.7 % (13.2-15.2); White Blood Count 9.1 K/mm3 (4.5-11.0)
[2017-01-28 06:09] LABS: Magnesium 1.8 mg/dL (1.7-2.3); Phosphorous 2.9 mg/dL (2.5-4.5)
[2017-01-28 06:52] LABS: Anisocytosis 1+; Basophils % (Manual) 0 % (0.0-1.8); Blastocytes % (Manual) 0 %; Eosinophils % (Manual) 0 % (0.0-4.3); Hypochromasia 1+
[2017-01-28 06:53] LABS: Diff Status Complete; Platelet Estimate Consistent w Auto
[2017-01-28] MEDS ORDERED: XANAX PO PRN (08:09)
[2017-01-28] MEDS ORDERED: PROVENTIL IH ONE (08:39)
--- NOTE | 2017-01-28 08:42 | Progress Note ---
Assessment and Plan Assessment and plan: --Acute hypoxic hypercapnic respiratory failure Requiring 100% nonrebreather oxygen, chest x-ray airspace disease/pneumonia Continue oxygen titrated to O2 sats more than 90% IV antibiotics, blood and sputum cultures, nebulizers Pulmonary following --Diabetic ketoacidosis at the time of admission Blood sugars reasonable level, acidosis and anion gap improved DC insulin drip, start 7030 long-acting insulin. IV fluids Diabetic diet, hemoglobin A1c, diabetic education --Hypophosphatemia/hypomagnesemia Corrected closely monitor levels --Hyperkalemia, replace per protocol monitor levels --Acute renal failure, secondary to ATN resolved --Moderate protein calorie malnutrition Supportive care nutrition supplements --Medical non-compliance Counseling done patient strongly advised to adhere to diet and treatment plan Verbalized understanding --DC planning per case management Patient's condition treatment plan discussed in detail with the patient His nurse and the case management Pulmonary evaluation and recommendations noted and appreciated Critical care time 31 minutes History Interval history: Patient seen and evaluated this morning medical records reviewed patient's sugars are reasonable level Insulin drip was discontinued Patient went into respiratory distress tachypnea and hypoxia, requiring nonrebreather 100% oxygen Slightly anxious, responding appropriately Vital signs reviewed Hospitalist Physical - Constitutional Vitals: Temp Pulse Resp BP Pulse Ox 98.1 F 103 H 27 H 148/82 99 01/28/17 08:00 01/28/17 06:01 01/28/17 06:01 01/28/17 06:01 01/28/17 06:01 General appearance: Present: mild distress, well-nourished, other (anxious) - EENT Eyes: Present: PERRL, EOM intact - Neck Neck: Present: supple, normal ROM - Respiratory Respiratory effort: normal Respiratory: bilateral: diminished (right more than left), rhonchi (right more than left) - Cardiovascular Rhythm: regular Heart Sounds: Present: S1 & S2 - Extremities Extremities: no ischemia, pulses intact, pulses symmetrical Peripheral Pulses: within normal limits - Abdominal General gastrointestinal: soft, non-tender, non-distended, normal bowel sounds - Integumentary Integumentary: Present: clear, warm - Psychiatric Psychiatric: appropriate mood/affect, cooperative - Neurologic Neurologic: CNII-XII intact, moves all extremities Results - Labs CBC & Chem 7: 01/28/17 05:15 01/28/17 09:43 Labs: Laboratory Last Values WBC 9.1 K/mm3 (4.5-11.0) 01/28/17 05:15 RBC 3.11 M/mm3 (3.65-5.03) L 01/28/17 05:15 Hgb 9.6 gm/dl (11.8-15.2) L 01/28/17 05:15 Hct 28.3 % (35.5-45.6) L 01/28/17 05:15 MCV 91 fl (84-94) 01/28/17 05:15 MCH 31 pg (28-32) 01/28/17 05:15 MCHC 34 % (32-34) 01/28/17 05:15 RDW 12.7 % (13.2-15.2) L 01/28/17 05:15 Plt Count 176 K/mm3 (140-440) 01/28/17 05:15 Lymph % (Auto) 10.1 % (13.4-35.0) L 01/27/17 04:51 [place] % (Auto) 10.4 % (0.0-7.3) H 01/27/17 04:51 Eos % (Auto) 0.0 % (0.0-4.3) 01/27/17 04:51 Baso % (Auto) 0.2 % (0.0-1.8) 01/27/17 04:51 Lymph # 0.9 K/mm3 (1.2-5.4) L 01/27/17 04:51 [place] # 0.9 K/mm3 (0.0-0.8) H 01/27/17 04:51 Eos # 0.0 K/mm3 (0.0-0.4) 01/27/17 04:51 Baso # 0.0 K/mm3 (0.0-0.1) 01/27/17 04:51 Add Manual Diff Complete 01/28/17 05:15 Total Counted 100 01/28/17 05:15 Seg Neutrophils % 79.3 % (40.0-70.0) H 01/27/17 04:51 Seg Neuts % (Manual) 73.0 % (40.0-70.0) H 01/28/17 05:15 Band Neutrophils % 10.0 % 01/28/17 05:15 Lymphocytes % (Manual) 9.0 % (13.4-35.0) L 01/28/17 05:15 Reactive Lymphs % (Man) 0 % 01/28/17 05:15 Monocytes % (Manual) 8.0 % (0.0-7.3) H 01/28/17 05:15 Eosinophils % (Manual) 0 % (0.0-4.3) 01/28/17 05:15 Basophils % (Manual) 0 % (0.0-1.8) 01/28/17 05:15 Metamyelocytes % 0 % 01/28/17 05:15 Myelocytes % 0 % 01/28/17 05:15 Promyelocytes % 0 % 01/28/17 05:15 Blast Cells % 0 % 01/28/17 05:15 Nucleated RBC % Not Reportable 01/28/17 05:15 Seg Neutrophils # 7.0 K/mm3 (1.8-7.7) 01/27/17 04:51 Seg Neutrophils # Man 6.6 K/mm3 (1.8-7.7) 01/28/17 05:15 Band Neutrophils # 0.9 K/mm3 01/28/17 05:15 Lymphocytes # (Manual) 0.8 K/mm3 (1.2-5.4) L 01/28/17 05:15 Abs React Lymphs (Man) 0.0 K/mm3 01/28/17 05:15 Monocytes # (Manual) 0.7 K/mm3 (0.0-0.8) 01/28/17 05:15 Eosinophils # (Manual) 0.0 K/mm3 (0.0-0.4) 01/28/17 05:15 Basophils # (Manual) 0.0 K/mm3 (0.0-0.1) 01/28/17 05:15 Metamyelocytes # 0.0 K/mm3 01/28/17 05:15 Myelocytes # 0.0 K/mm3 01/28/17 05:15 Promyelocytes # 0.0 K/mm3 01/28/17 05:15 Blast Cells # 0.0 K/mm3 01/28/17 05:15 WBC Morphology Not Reportable 01/28/17 05:15 Hypersegmented Neuts Not Reportable 01/28/17 05:15 Hyposegmented Neuts Not Reportable 01/28/17 05:15 Hypogranular Neuts Not Reportable 01/28/17 05:15 Smudge Cells Not Reportable 01/28/17 05:15 Toxic Granulation Not Reportable 01/28/17 05:15 Toxic Vacuolation Not Reportable 01/28/17 05:15 Dohle Bodies Not Reportable 01/28/17 05:15 Pelger-Huet Anomaly Not Reportable 01/28/17 05:15 Richard Rods Not Reportable 01/28/17 05:15 Platelet Estimate Consistent w auto 01/28/17 05:15 Clumped Platelets Not Reportable 01/28/17 05:15 Plt Clumps, EDTA Not Reportable 01/28/17 05:15 Large Platelets Not Reportable 01/28/17 05:15 Giant Platelets Not Reportable 01/28/17 05:15 Platelet Satelliting Not Reportable 01/28/17 05:15 Plt Morphology Comment Not Reportable 01/28/17 05:15 RBC Morphology Not Reportable 01/28/17 05:15 Dimorphic RBCs Not Reportable 01/28/17 05:15 Polychromasia Not Reportable 01/28/17 05:15 Hypochromasia 1+ 01/28/17 05:15 Poikilocytosis Not Reportable 01/28/17 05:15 Anisocytosis 1+ 01/28/17 05:15 Microcytosis Not Reportable 01/28/17 05:15 Macrocytosis Not Reportable 01/28/17 05:15 Spherocytes Not Reportable 01/28/17 05:15 Pappenheimer Bodies Not Reportable 01/28/17 05:15 Sickle Cells Not Reportable 01/28/17 05:15 Target Cells Not Reportable 01/28/17 05:15 Tear Drop Cells Not Reportable 01/28/17 05:15 Ovalocytes Not Reportable 01/28/17 05:15 Helmet Cells Not Reportable 01/28/17 05:15 Esquivel-Elderon Bodies Not Reportable 01/28/17 05:15 [place] Rings Not Reportable 01/28/17 05:15 [place] Cells Not Reportable 01/28/17 05:15 Bite Cells Not Reportable 01/28/17 05:15 Crenated Cell Not Reportable 01/28/17 05:15 Elliptocytes Not Reportable 01/28/17 05:15 Acanthocytes (Spur) Not Reportable 01/28/17 05:15 Rouleaux Not Reportable 01/28/17 05:15 Hemoglobin C Crystals Not Reportable 01/28/17 05:15 Schistocytes Not Reportable 01/28/17 05:15 Malaria parasites Not Reportable 01/28/17 05:15 Kevin Bodies Not Reportable 01/28/17 05:15 Hem Pathologist Commnt No 01/28/17 05:15 POC ABG pH 7.348 (7.35-7.45) L 01/27/17 11:53 POC ABG pCO2 30.6 (35-45) L 01/27/17 11:53 POC ABG pO2 51 (80-105) L 01/27/17 11:53 POC ABG HCO3 16.8 01/27/17 11:53 POC ABG Total CO2 18 01/27/17 11:53 POC ABG O2 Sat 84 01/27/17 11:53 POC ABG Base Excess -9 01/27/17 11:53 VBG pH 7.210 (7.320-7.420) L 01/26/17 12:23 FiO2 35 % 01/27/17 11:53 Sodium 135 mmol/L (137-145) L 01/27/17 20:16 Potassium 3.4 mmol/L (3.6-5.0) L 01/27/17 20:16 Chloride 102.2 mmol/L (98-107) 01/27/17 20:16 Carbon Dioxide 18 mmol/L (22-30) L 01/27/17 20:16 Anion Gap 18 mmol/L 01/27/17 20:16 BUN 21 mg/dL (9-20) H 01/27/17 20:16 Creatinine 1.1 mg/dL (0.8-1.5) 01/27/17 20:16 Estimated GFR > 60 ml/min 01/27/17 20:16 BUN/Creatinine Ratio 19.09 % 01/27/17 20:16 Glucose 246 mg/dL (75-100) H 01/27/17 20:16 POC Glucose 247 (70-105) H 01/27/17 21:41 Hemoglobin A1c 16.1 % (4-6) H 01/27/17 08:29 Calcium 7.4 mg/dL (8.4-10.2) L 01/27/17 20:16 Phosphorus 2.9 mg/dL (2.5-4.5) D 01/28/17 05:15 Magnesium 1.8 mg/dL (1.7-2.3) 01/28/17 05:15 Total Bilirubin 0.5 mg/dL (0.1-1.2) 01/27/17 04:51 AST 7 units/L (5-40) 01/27/17 04:51 ALT 5 units/L (7-56) L 01/27/17 04:51 Alkaline Phosphatase 81 units/L (35-129) 01/27/17 04:51 Total Creatine Kinase 29 units/L (55-170) L 01/26/17 12:25 CK-MB (CK-2) 1.3 ng/mL (0.0-4.0) 01/26/17 12:25 CK-MB (CK-2) Rel Index 4.4 (0-4) H 01/26/17 12:25 Troponin T < 0.010 ng/mL (0.00-0.029) 01/26/17 12:25 Total Protein 6.0 g/dL (6.3-8.2) L 01/27/17 04:51 Albumin 2.5 g/dL (3.9-5) L 01/27/17 04:51 Albumin/Globulin Ratio 0.7 % 01/27/17 04:51 Urine Color Straw (Yellow) 01/26/17 14:26 Urine Turbidity Clear (Clear) 01/26/17 14:26 Urine pH 5.0 (5.0-7.0) 01/26/17 14:26 Ur Specific [place] 1.021 (1.003-1.030) 01/26/17 14:26 Urine Protein 30 mg/dl mg/dL (Negative) 01/26/17 14:26 Urine Glucose (UA) >=500 mg/dL (Negative) 01/26/17 14:26 Urine Ketones 80 mg/dL (Negative) 01/26/17 14:26 Urine Blood Sm (Negative) 01/26/17 14:26 Urine Nitrite Neg (Negative) 01/26/17 14:26 Urine Bilirubin Neg (Negative) 01/26/17 14:26 Urine Urobilinogen < 2.0 mg/dL (<2.0) 01/26/17 14:26 Ur Leukocyte Esterase Neg (Negative) 01/26/17 14:26 Urine WBC (Auto) 2.0 /HPF (0.0-6.0) 01/26/17 14:26 Urine RBC (Auto) 4.0 /HPF (0.0-6.0) 01/26/17 14:26 Urine Bacteria (Auto) 1+ /HPF (Negative) 01/26/17 14:26 Urine Mucus Few /HPF 01/26/17 14:26 Ketones mmol/L (-0.28) 01/26/17 12:23
--- NOTE | 2017-01-28 08:56 | XRay Report ---
AP chest x-ray. Findings: Since previous study on January 26, there is increasing airspace disease in the medial aspect of the right upper lobe. Bibasilar atelectasis and/or infiltrates persist. There is no pleural fluid. Impression: Worsening airspace disease especially in the right upper lobe with persistent bibasilar atelectasis/infiltrates.
[2017-01-28] MEDS ORDERED: XANAX PO ONE (09:00)
[2017-01-28] MEDS ORDERED: NACL 0.9% 1000 ML 1,000 ML IV SCH (09:00)
[2017-01-28] MEDS ORDERED: DUONEB 0.5 MG-3 MG/3 ML SOLN IH ONE (09:10)
--- NOTE | 2017-01-28 10:37 | Progress Note ---
Assessment and Plan - Patient Problems (1) Aspiration pneumonia Current Visit: Yes Status: Acute Qualifiers: Aspiration pneumonia type: A Laterality: L Lung location: L Plan to address problem: - CXR demonstrates increasing Right mid lung infiltrate - get CRP, lactate - empiric AB's - supplemental oxygen to keep sats > 94% - sputum C&S - prn BIPAP - aspiration precautions (2) Acute hypoxemic respiratory failure Current Visit: Yes Status: Acute Plan to address problem: - as above (3) DKA (diabetic ketoacidoses) Current Visit: Yes Status: Acute Qualifiers: Diabetes mellitus type: D Diabetes mellitus complication detail: D Plan to address problem: - resolved - SSI - introduce home meds (4) Discharge planning issues Current Visit: Yes Status: Acute Plan to address problem: - OK to transfer to telemetry floor Subjective Date of service: 01/28/17 Principal diagnosis: Acute Hypoxemic Respiratory Failure; DKA Interval history: Seen and examined at bedside; 24 hour events reviewed; nursing and respiratory care staff consulted; no adverse overnight events reported to me; remains hypoxemic; per family had URTI symptoms prior to admission; no emesis or overt aspiration today Objective Vital Signs - 12hr 01/27/17 01/27/17 01/28/17 23:00 23:50 00:00 Temperature 99.8 F H Pulse Rate 89 98 H Respiratory 24 24 Rate Blood Pressure 107/62 109/67 O2 Sat by Pulse 95 95 93 Oximetry 01/28/17 01/28/17 01/28/17 01:00 01:28 02:00 Temperature Pulse Rate 98 H 82 Respiratory 24 24 24 Rate Blood Pressure 115/70 99/57 O2 Sat by Pulse 94 93 Oximetry 01/28/17 01/28/17 01/28/17 03:00 04:00 05:00 Temperature 99.9 F H Pulse Rate 89 96 H 92 H Respiratory 24 25 H 24 Rate Blood Pressure 114/63 124/68 119/64 O2 Sat by Pulse 94 90 Oximetry 01/28/17 01/28/17 01/28/17 05:31 06:01 08:00 Temperature 98.1 F Pulse Rate 104 H 103 H Respiratory 27 H 27 H Rate Blood Pressure 124/68 148/82 O2 Sat by Pulse 86 99 Oximetry Constitutional: alert, appears uncomfortable Eyes: non-icteric ENT: oropharynx moist Neck: supple, no lymphadenopathy Effort: mildly labored Ascultation: Right: rales Cardiovascular: regular rate and rhythm Gastrointestinal: normoactive bowel sounds, soft, non-tender, non-distended Integumentary: normal Extremities: no cyanosis, no edema, pulses normal, no ischemia or petechiae Neurologic: normal mental status, non-focal exam, pupils equal and round, motor strength normal and Psychiatric: mood appropriate, affect normal CBC and BMP: 01/28/17 05:15 01/28/17 09:43 ABG, PT/INR, D-dimer: ABG POC ABG pH 7.348 (7.35-7.45) L 01/27/17 11:53 POC ABG pCO2 30.6 (35-45) L 01/27/17 11:53 POC ABG pO2 51 (80-105) L 01/27/17 11:53 POC ABG HCO3 16.8 01/27/17 11:53 POC ABG Total CO2 18 01/27/17 11:53 POC ABG O2 Sat 84 01/27/17 11:53 Abnormal lab findings: Abnormal Labs 01/26/17 01/26/17 01/26/17 20:52 20:52 21:29 RBC Hgb Hct RDW Lymph % (Auto) [place] % (Auto) Lymph # [place] # Seg Neutrophils % Seg Neuts % (Manual) Lymphocytes % (Manual) Monocytes % (Manual) Lymphocytes # (Manual) POC ABG pH POC ABG pCO2 POC ABG pO2 Sodium 135 L Potassium Chloride Carbon Dioxide 18 L BUN 34 H Glucose 198 H POC Glucose 248 H Hemoglobin A1c Calcium 7.9 L Phosphorus 1.8 L D ALT Total Protein Albumin 01/26/17 01/26/17 01/27/17 23:09 23:19 00:22 RBC Hgb Hct RDW Lymph % (Auto) [place] % (Auto) Lymph # [place] # Seg Neutrophils % Seg Neuts % (Manual) Lymphocytes % (Manual) Monocytes % (Manual) Lymphocytes # (Manual) POC ABG pH POC ABG pCO2 POC ABG pO2 Sodium Potassium Chloride Carbon Dioxide 14 L BUN 34 H Glucose 301 H POC Glucose 384 H 339 H Hemoglobin A1c Calcium 7.7 L Phosphorus ALT Total Protein Albumin 01/27/17 01/27/17 01/27/17 00:55 01:22 02:39 RBC Hgb Hct RDW Lymph % (Auto) [place] % (Auto) Lymph # [place] # Seg Neutrophils % Seg Neuts % (Manual) Lymphocytes % (Manual) Monocytes % (Manual) Lymphocytes # (Manual) POC ABG pH POC ABG pCO2 POC ABG pO2 Sodium Potassium Chloride Carbon Dioxide 14 L BUN 33 H Glucose 330 H POC Glucose 301 H 261 H Hemoglobin A1c Calcium 7.5 L Phosphorus ALT Total Protein Albumin 01/27/17 01/27/17 01/27/17 03:47 04:32 04:51 RBC 3.49 L Hgb 10.8 L Hct 31.8 L RDW 12.7 L Lymph % (Auto) 10.1 L [place] % (Auto) 10.4 H Lymph # 0.9 L [place] # 0.9 H Seg Neutrophils % 79.3 H Seg Neuts % (Manual) Lymphocytes % (Manual) Monocytes % (Manual) Lymphocytes # (Manual) POC ABG pH POC ABG pCO2 POC ABG pO2 Sodium Potassium Chloride Carbon Dioxide BUN Glucose POC Glucose 223 H 165 H Hemoglobin A1c Calcium Phosphorus ALT Total Protein Albumin 01/27/17 01/27/17 01/27/17 04:51 06:36 07:40 RBC Hgb Hct RDW Lymph % (Auto) [place] % (Auto) Lymph # [place] # Seg Neutrophils % Seg Neuts % (Manual) Lymphocytes % (Manual) Monocytes % (Manual) Lymphocytes # (Manual) POC ABG pH POC ABG pCO2 POC ABG pO2 Sodium Potassium Chloride 108.0 H Carbon Dioxide 19 L BUN 31 H Glucose 149 H POC Glucose 126 H 152 H Hemoglobin A1c Calcium 8.1 L Phosphorus ALT 5 L Total Protein 6.0 L Albumin 2.5 L 01/27/17 01/27/17 01/27/17 08:29 08:29 08:53 RBC Hgb Hct RDW Lymph % (Auto) [place] % (Auto) Lymph # [place] # Seg Neutrophils % Seg Neuts % (Manual) Lymphocytes % (Manual) Monocytes % (Manual) Lymphocytes # (Manual) POC ABG pH POC ABG pCO2 POC ABG pO2 Sodium Potassium Chloride Carbon Dioxide BUN Glucose POC Glucose 180 H Hemoglobin A1c 16.1 H Calcium Phosphorus 1.1 L D ALT Total Protein Albumin 01/27/17 01/27/17 01/27/17 09:59 11:48 11:53 RBC Hgb Hct RDW Lymph % (Auto) [place] % (Auto) Lymph # [place] # Seg Neutrophils % Seg Neuts % (Manual) Lymphocytes % (Manual) Monocytes % (Manual) Lymphocytes # (Manual) POC ABG pH 7.348 L POC ABG pCO2 30.6 L POC ABG pO2 51 L Sodium Potassium Chloride Carbon Dioxide BUN Glucose POC Glucose 197 H 213 H Hemoglobin A1c Calcium Phosphorus ALT Total Protein Albumin 01/27/17 01/27/17 01/27/17 13:40 16:08 16:26 RBC Hgb Hct RDW Lymph % (Auto) [place] % (Auto) Lymph # [place] # Seg Neutrophils % Seg Neuts % (Manual) Lymphocytes % (Manual) Monocytes % (Manual) Lymphocytes # (Manual) POC ABG pH POC ABG pCO2 POC ABG pO2 Sodium 133 L 135 L Potassium 3.5 L 3.4 L Chloride Carbon Dioxide 18 L 19 L BUN 24 H 23 H Glucose 223 H 200 H POC Glucose 196 H Hemoglobin A1c Calcium 7.5 L 7.9 L Phosphorus ALT Total Protein Albumin 01/27/17 01/27/17 01/28/17 20:16 21:41 05:15 RBC 3.11 L Hgb 9.6 L Hct 28.3 L RDW 12.7 L Lymph % (Auto) [place] % (Auto) Lymph # [place] # Seg Neutrophils % Seg Neuts % (Manual) 73.0 H Lymphocytes % (Manual) 9.0 L Monocytes % (Manual) 8.0 H Lymphocytes # (Manual) 0.8 L POC ABG pH POC ABG pCO2 POC ABG pO2 Sodium 135 L Potassium 3.4 L Chloride Carbon Dioxide 18 L BUN 21 H Glucose 246 H POC Glucose 247 H Hemoglobin A1c Calcium 7.4 L Phosphorus ALT Total Protein Albumin Chest x-ray: image reviewed
[2017-01-28] MEDS: PEPCID PO SCH (11:00)
[2017-01-28] MEDS ORDERED: PNEUMOVAX 23 IM ONE (12:00)
[2017-01-28] MEDS ORDERED: FLUARIX QUAD 2016-2017(36 MOS+) IM ONE (12:00)
[2017-01-28 12:01] LABS: Anion Gap 22 mmol/L; Blood Urea Nitrogen 21 mg/dL (9-20); Calcium 7.6 mg/dL (8.4-10.2); Carbon Dioxide 16 mmol/L (22-30); Chloride 99.3 mmol/L (98-107); Glucose 267 mg/dL (75-100); Potassium 3.4 mmol/L (3.6-5.0); Sodium 134 mmol/L (137-145)
[2017-01-28] MEDS: LOVENOX SUB-Q SCH (13:00)
[2017-01-28] MEDS: LEVAQUIN 750MG/150ML 750 MG/150 ML BAG IV SCH (14:00)
[2017-01-28] MEDS ORDERED: K-DUR PO ONE (15:42)
[2017-01-28] MEDS: DUONEB 0.5 MG-3 MG/3 ML SOLN IH SCH ×2 (17:43→21:26)
[2017-01-29] MEDS: DUONEB 0.5 MG-3 MG/3 ML SOLN IH SCH ×3 (02:42→13:53)
[2017-01-29] MEDS: ROBITUSSIN DM PO PRN ×2 (03:21→18:43)
[2017-01-29 05:54] LABS: ISTAT Base Excess -6; ISTAT HCO3 18.7; ISTAT PCO2 27.9 (35-45); ISTAT PH 7.435 (7.35-7.45); ISTAT PO2 98 (80-105); ISTAT SO2 98; ISTAT TCO2 20
[2017-01-29] MEDS: DILAUDID IV PRN ×2 (08:42→18:44)
[2017-01-29 08:46] LABS: Anion Gap 18 mmol/L; Blood Urea Nitrogen 17 mg/dL (9-20); Calcium 7.6 mg/dL (8.4-10.2); Carbon Dioxide 19 mmol/L (22-30); Chloride 96.9 mmol/L (98-107); Glucose 256 mg/dL (75-100); Magnesium 1.8 mg/dL (1.7-2.3); Phosphorous 2.1 mg/dL (2.5-4.5); Potassium 3.1 mmol/L (3.6-5.0); Sodium 131 mmol/L (137-145)
[2017-01-29] MEDS: LEVAQUIN 750MG/150ML 750 MG/150 ML BAG IV SCH (09:28)
[2017-01-29] MEDS: LOVENOX SUB-Q SCH (09:29)
[2017-01-29] MEDS: PEPCID PO SCH (09:30)
[2017-01-29] MEDS ORDERED: K-DUR PO ONE (10:00)
[2017-01-29] MEDS ORDERED: KPHOS 45 MMOL in NACL 0.9% 500 ML 500 ML IV ONE (10:00)
[2017-01-29] MEDS ORDERED: MAGNESIUM SULFATE 2GM/50ML 2 GM/50 ML BAG IV ONE (10:00)
--- NOTE | 2017-01-29 10:46 | Progress Note ---
Assessment and Plan Assessment and plan: --Acute hypoxic hypercapnic respiratory failure significantly improved, continue oxygen by nasal cannula titrated to O2 sats more than 90% Nebulizers, IV antibiotics, supportive care, Cultures Pulmonary following --Diabetic ketoacidosis at the time of admission Blood sugars reasonable level, acidosis and anion gap improved off insulin drip, start 7030 long-acting insulin. IV fluids Diabetic diet, hemoglobin A1c, diabetic education --Hypophosphatemia replace per protocol --Hyperkalemia, replace per protocol monitor levels --Acute renal failure, secondary to ATN resolved --Moderate protein calorie malnutrition Supportive care nutrition supplements --Medical non-compliance Counseling done patient strongly advised to adhere to diet and treatment plan Verbalized understanding --DC planning per case management Patient's condition treatment plan discussed in detail with the patient His nurse and the case management Patient is stable to be transferred out of ICU Possible discharge in 1-2 days if stable History Interval history: Seen and evaluated in his room this morning medical records reviewed Blood sugars are reasonable levels Patient feels better saturating on nasal cannula oxygen 94-95% Mild tachypnea Denies any chest pain shortness of breath, alert awake oriented 3 not in acute distress Hospitalist Physical - Constitutional Vitals: Temp Pulse Resp BP Pulse Ox 97.2 F L 101 H 21 115/60 94 01/29/17 08:00 01/29/17 09:00 01/29/17 09:00 01/29/17 09:00 01/29/17 09:00 General appearance: Present: no acute distress, well-nourished - EENT Eyes: Present: PERRL, EOM intact - Neck Neck: Present: supple, normal ROM - Respiratory Respiratory effort: normal Respiratory: bilateral: diminished, rhonchi - Cardiovascular Rhythm: regular Heart Sounds: Present: S1 & S2 - Extremities Extremities: no ischemia, pulses intact, pulses symmetrical Peripheral Pulses: within normal limits - Abdominal General gastrointestinal: soft, non-tender, non-distended, normal bowel sounds - Integumentary Integumentary: Present: clear, warm - Psychiatric Psychiatric: appropriate mood/affect, cooperative - Neurologic Neurologic: CNII-XII intact, moves all extremities Results - Labs CBC & Chem 7: 01/28/17 05:15 01/29/17 07:33 Labs: Laboratory Last Values WBC 9.1 K/mm3 (4.5-11.0) 01/28/17 05:15 RBC 3.11 M/mm3 (3.65-5.03) L 01/28/17 05:15 Hgb 9.6 gm/dl (11.8-15.2) L 01/28/17 05:15 Hct 28.3 % (35.5-45.6) L 01/28/17 05:15 MCV 91 fl (84-94) 01/28/17 05:15 MCH 31 pg (28-32) 01/28/17 05:15 MCHC 34 % (32-34) 01/28/17 05:15 RDW 12.7 % (13.2-15.2) L 01/28/17 05:15 Plt Count 176 K/mm3 (140-440) 01/28/17 05:15 Lymph % (Auto) 10.1 % (13.4-35.0) L 01/27/17 04:51 [place] % (Auto) 10.4 % (0.0-7.3) H 01/27/17 04:51 Eos % (Auto) 0.0 % (0.0-4.3) 01/27/17 04:51 Baso % (Auto) 0.2 % (0.0-1.8) 01/27/17 04:51 Lymph # 0.9 K/mm3 (1.2-5.4) L 01/27/17 04:51 [place] # 0.9 K/mm3 (0.0-0.8) H 01/27/17 04:51 Eos # 0.0 K/mm3 (0.0-0.4) 01/27/17 04:51 Baso # 0.0 K/mm3 (0.0-0.1) 01/27/17 04:51 Add Manual Diff Complete 01/28/17 05:15 Total Counted 100 01/28/17 05:15 Seg Neutrophils % 79.3 % (40.0-70.0) H 01/27/17 04:51 Seg Neuts % (Manual) 73.0 % (40.0-70.0) H 01/28/17 05:15 Band Neutrophils % 10.0 % 01/28/17 05:15 Lymphocytes % (Manual) 9.0 % (13.4-35.0) L 01/28/17 05:15 Reactive Lymphs % (Man) 0 % 01/28/17 05:15 Monocytes % (Manual) 8.0 % (0.0-7.3) H 01/28/17 05:15 Eosinophils % (Manual) 0 % (0.0-4.3) 01/28/17 05:15 Basophils % (Manual) 0 % (0.0-1.8) 01/28/17 05:15 Metamyelocytes % 0 % 01/28/17 05:15 Myelocytes % 0 % 01/28/17 05:15 Promyelocytes % 0 % 01/28/17 05:15 Blast Cells % 0 % 01/28/17 05:15 Nucleated RBC % Not Reportable 01/28/17 05:15 Seg Neutrophils # 7.0 K/mm3 (1.8-7.7) 01/27/17 04:51 Seg Neutrophils # Man 6.6 K/mm3 (1.8-7.7) 01/28/17 05:15 Band Neutrophils # 0.9 K/mm3 01/28/17 05:15 Lymphocytes # (Manual) 0.8 K/mm3 (1.2-5.4) L 01/28/17 05:15 Abs React Lymphs (Man) 0.0 K/mm3 01/28/17 05:15 Monocytes # (Manual) 0.7 K/mm3 (0.0-0.8) 01/28/17 05:15 Eosinophils # (Manual) 0.0 K/mm3 (0.0-0.4) 01/28/17 05:15 Basophils # (Manual) 0.0 K/mm3 (0.0-0.1) 01/28/17 05:15 Metamyelocytes # 0.0 K/mm3 01/28/17 05:15 Myelocytes # 0.0 K/mm3 01/28/17 05:15 Promyelocytes # 0.0 K/mm3 01/28/17 05:15 Blast Cells # 0.0 K/mm3 01/28/17 05:15 WBC Morphology Not Reportable 01/28/17 05:15 Hypersegmented Neuts Not Reportable 01/28/17 05:15 Hyposegmented Neuts Not Reportable 01/28/17 05:15 Hypogranular Neuts Not Reportable 01/28/17 05:15 Smudge Cells Not Reportable 01/28/17 05:15 Toxic Granulation Not Reportable 01/28/17 05:15 Toxic Vacuolation Not Reportable 01/28/17 05:15 Dohle Bodies Not Reportable 01/28/17 05:15 Pelger-Huet Anomaly Not Reportable 01/28/17 05:15 Richard Rods Not Reportable 01/28/17 05:15 Platelet Estimate Consistent w auto 01/28/17 05:15 Clumped Platelets Not Reportable 01/28/17 05:15 Plt Clumps, EDTA Not Reportable 01/28/17 05:15 Large Platelets Not Reportable 01/28/17 05:15 Giant Platelets Not Reportable 01/28/17 05:15 Platelet Satelliting Not Reportable 01/28/17 05:15 Plt Morphology Comment Not Reportable 01/28/17 05:15 RBC Morphology Not Reportable 01/28/17 05:15 Dimorphic RBCs Not Reportable 01/28/17 05:15 Polychromasia Not Reportable 01/28/17 05:15 Hypochromasia 1+ 01/28/17 05:15 Poikilocytosis Not Reportable 01/28/17 05:15 Anisocytosis 1+ 01/28/17 05:15 Microcytosis Not Reportable 01/28/17 05:15 Macrocytosis Not Reportable 01/28/17 05:15 Spherocytes Not Reportable 01/28/17 05:15 Pappenheimer Bodies Not Reportable 01/28/17 05:15 Sickle Cells Not Reportable 01/28/17 05:15 Target Cells Not Reportable 01/28/17 05:15 Tear Drop Cells Not Reportable 01/28/17 05:15 Ovalocytes Not Reportable 01/28/17 05:15 Helmet Cells Not Reportable 01/28/17 05:15 Esquivel-Sonterra Bodies Not Reportable 01/28/17 05:15 [place] Rings Not Reportable 01/28/17 05:15 [place] Cells Not Reportable 01/28/17 05:15 Bite Cells Not Reportable 01/28/17 05:15 Crenated Cell Not Reportable 01/28/17 05:15 Elliptocytes Not Reportable 01/28/17 05:15 Acanthocytes (Spur) Not Reportable 01/28/17 05:15 Rouleaux Not Reportable 01/28/17 05:15 Hemoglobin C Crystals Not Reportable 01/28/17 05:15 Schistocytes Not Reportable 01/28/17 05:15 Malaria parasites Not Reportable 01/28/17 05:15 Kevin Bodies Not Reportable 01/28/17 05:15 Hem Pathologist Commnt No 01/28/17 05:15 POC ABG pH 7.435 (7.35-7.45) 01/29/17 04:52 POC ABG pCO2 27.9 (35-45) L 01/29/17 04:52 POC ABG pO2 98 (80-105) 01/29/17 04:52 POC ABG HCO3 18.7 01/29/17 04:52 POC ABG Total CO2 20 01/29/17 04:52 POC ABG O2 Sat 98 01/29/17 04:52 POC ABG Base Excess -6 01/29/17 04:52 VBG pH 7.210 (7.320-7.420) L 01/26/17 12:23 FiO2 50 % 01/29/17 04:52 Sodium 131 mmol/L (137-145) L 01/29/17 07:33 Potassium 3.1 mmol/L (3.6-5.0) L 01/29/17 07:33 Chloride 96.9 mmol/L (98-107) L 01/29/17 07:33 Carbon Dioxide 19 mmol/L (22-30) L 01/29/17 07:33 Anion Gap 18 mmol/L 01/29/17 07:33 BUN 17 mg/dL (9-20) 01/29/17 07:33 Creatinine 1.0 mg/dL (0.8-1.5) 01/29/17 07:33 Estimated GFR > 60 ml/min 01/29/17 07:33 BUN/Creatinine Ratio 17.00 % 01/29/17 07:33 Glucose 256 mg/dL (75-100) H 01/29/17 07:33 POC Glucose 237 (70-105) H 01/28/17 21:36 Hemoglobin A1c 16.1 % (4-6) H 01/27/17 08:29 Lactic Acid 1.0 mmol/L (0.7-2.0) 01/28/17 13:39 Calcium 7.6 mg/dL (8.4-10.2) L 01/29/17 07:33 Phosphorus 2.1 mg/dL (2.5-4.5) L D 01/29/17 07:33 Magnesium 1.8 mg/dL (1.7-2.3) 01/29/17 07:33 Total Bilirubin 0.5 mg/dL (0.1-1.2) 01/27/17 04:51 AST 7 units/L (5-40) 01/27/17 04:51 ALT 5 units/L (7-56) L 01/27/17 04:51 Alkaline Phosphatase 81 units/L (35-129) 01/27/17 04:51 Total Creatine Kinase 29 units/L (55-170) L 01/26/17 12:25 CK-MB (CK-2) 1.3 ng/mL (0.0-4.0) 01/26/17 12:25 CK-MB (CK-2) Rel Index 4.4 (0-4) H 01/26/17 12:25 Troponin T < 0.010 ng/mL (0.00-0.029) 01/26/17 12:25 C-Reactive Protein 35.80 mg/dL (0.00-1.30) H 01/28/17 13:35 Total Protein 6.0 g/dL (6.3-8.2) L 01/27/17 04:51 Albumin 2.5 g/dL (3.9-5) L 01/27/17 04:51 Albumin/Globulin Ratio 0.7 % 01/27/17 04:51 Urine Color Straw (Yellow) 01/26/17 14:26 Urine Turbidity Clear (Clear) 01/26/17 14:26 Urine pH 5.0 (5.0-7.0) 01/26/17 14:26 Ur Specific [place] 1.021 (1.003-1.030) 01/26/17 14:26 Urine Protein 30 mg/dl mg/dL (Negative) 01/26/17 14:26 Urine Glucose (UA) >=500 mg/dL (Negative) 01/26/17 14:26 Urine Ketones 80 mg/dL (Negative) 01/26/17 14:26 Urine Blood Sm (Negative) 01/26/17 14:26 Urine Nitrite Neg (Negative) 01/26/17 14:26 Urine Bilirubin Neg (Negative) 01/26/17 14:26 Urine Urobilinogen < 2.0 mg/dL (<2.0) 01/26/17 14:26 Ur Leukocyte Esterase Neg (Negative) 01/26/17 14:26 Urine WBC (Auto) 2.0 /HPF (0.0-6.0) 01/26/17 14:26 Urine RBC (Auto) 4.0 /HPF (0.0-6.0) 01/26/17 14:26 Urine Bacteria (Auto) 1+ /HPF (Negative) 01/26/17 14:26 Urine Mucus Few /HPF 01/26/17 14:26 Ketones mmol/L (-0.28) 01/26/17 12:23
--- NOTE | 2017-01-29 11:32 | Progress Note ---
Assessment and Plan - Patient Problems (1) Aspiration pneumonia Current Visit: Yes Status: Acute Qualifiers: Aspiration pneumonia type: A Laterality: L Lung location: L Plan to address problem: - CXR demonstrates increasing Right mid lung infiltrate - CRP significantly elevated - continue empiric AB's - continue supplemental oxygen to keep sats > 94% - follow sputum C&S - prn BIPAP - continue aspiration precautions (2) Acute hypoxemic respiratory failure Current Visit: Yes Status: Acute Plan to address problem: - as above - improved today (3) DKA (diabetic ketoacidoses) Current Visit: Yes Status: Acute Qualifiers: Diabetes mellitus type: D Diabetes mellitus complication detail: D Plan to address problem: - resolved - continue SSI - introduced home meds (4) Discharge planning issues Current Visit: Yes Status: Acute Plan to address problem: - OK to transfer to telemetry floor Subjective Date of service: 01/29/17 Principal diagnosis: Acute Hypoxemic Respiratory Failure; DKA Interval history: Seen and examined at bedside; 24 hour events reviewed; nursing and respiratory care staff consulted; no adverse overnight events reported to me; looks and feels better/stronger today; no emesis or overt aspiration; no gross bleeding; no chest pains or increased SOB Objective Vital Signs - 12hr 01/28/17 01/29/17 01/29/17 23:35 00:00 00:31 Temperature 98.9 F Pulse Rate 98 H 95 H Pulse Rate [ Posterior Bilateral Throughout] Respiratory 20 27 H 25 H Rate Respiratory Rate [Posterior Bilateral Throughout] Blood Pressure 126/76 126/76 O2 Sat by Pulse 99 100 Oximetry 01/29/17 01/29/17 01/29/17 01:00 01:31 02:00 Temperature Pulse Rate 90 97 H 84 Pulse Rate [ Posterior Bilateral Throughout] Respiratory 30 H 29 H 32 H Rate Respiratory Rate [Posterior Bilateral Throughout] Blood Pressure 127/69 127/69 127/65 O2 Sat by Pulse 99 100 99 Oximetry 01/29/17 01/29/17 01/29/17 02:31 02:42 03:00 Temperature Pulse Rate 85 119 H Pulse Rate [ 88 108 H Posterior Bilateral Throughout] Respiratory 31 H 34 H Rate Respiratory 28 H 28 H Rate [Posterior Bilateral Throughout] Blood Pressure 127/65 143/70 O2 Sat by Pulse 100 93 Oximetry 01/29/17 01/29/17 01/29/17 03:31 04:00 04:31 Temperature 98.8 F Pulse Rate 115 H 107 H 105 H Pulse Rate [ Posterior Bilateral Throughout] Respiratory 26 H 26 H 28 H Rate Respiratory Rate [Posterior Bilateral Throughout] Blood Pressure 143/70 120/66 143/70 O2 Sat by Pulse 94 98 94 Oximetry 01/29/17 01/29/17 01/29/17 05:00 05:31 06:00 Temperature Pulse Rate 103 H 100 H 99 H Pulse Rate [ Posterior Bilateral Throughout] Respiratory 31 H 28 H 29 H Rate Respiratory Rate [Posterior Bilateral Throughout] Blood Pressure 130/69 120/66 129/67 O2 Sat by Pulse 95 95 96 Oximetry 01/29/17 01/29/17 01/29/17 06:31 07:00 07:31 Temperature Pulse Rate 97 H 100 H 101 H Pulse Rate [ Posterior Bilateral Throughout] Respiratory 28 H 36 H 29 H Rate Respiratory Rate [Posterior Bilateral Throughout] Blood Pressure 130/69 136/80 136/80 O2 Sat by Pulse 96 95 98 Oximetry 01/29/17 01/29/17 01/29/17 08:00 08:05 08:16 Temperature 97.2 F L Pulse Rate 98 H Pulse Rate [ 99 H 99 H Posterior Bilateral Throughout] Respiratory 29 H Rate Respiratory 18 18 Rate [Posterior Bilateral Throughout] Blood Pressure 144/79 O2 Sat by Pulse 96 Oximetry 01/29/17 01/29/17 01/29/17 08:31 08:42 09:00 Temperature Pulse Rate 108 H 101 H Pulse Rate [ Posterior Bilateral Throughout] Respiratory 33 H 32 H 21 Rate Respiratory Rate [Posterior Bilateral Throughout] Blood Pressure 144/79 115/60 O2 Sat by Pulse 96 94 Oximetry Constitutional: alert, appears uncomfortable Eyes: non-icteric ENT: oropharynx moist Neck: supple, no lymphadenopathy Effort: mildly labored Ascultation: Right: rales, Left: clear Cardiovascular: regular rate and rhythm Gastrointestinal: normoactive bowel sounds, soft, non-tender, non-distended Integumentary: normal Extremities: no cyanosis, no edema, pulses normal, no ischemia or petechiae Neurologic: normal mental status, non-focal exam, pupils equal and round, motor strength normal and Psychiatric: mood appropriate, affect normal CBC and BMP: 01/28/17 05:15 01/29/17 07:33 ABG, PT/INR, D-dimer: ABG POC ABG pH 7.435 (7.35-7.45) 01/29/17 04:52 POC ABG pCO2 27.9 (35-45) L 01/29/17 04:52 POC ABG pO2 98 (80-105) 01/29/17 04:52 POC ABG HCO3 18.7 01/29/17 04:52 POC ABG Total CO2 20 01/29/17 04:52 POC ABG O2 Sat 98 01/29/17 04:52 Abnormal lab findings: Abnormal Labs 01/26/17 01/26/17 01/26/17 20:52 20:52 21:29 RBC Hgb Hct RDW Lymph % (Auto) [place] % (Auto) Lymph # [place] # Seg Neutrophils % Seg Neuts % (Manual) Lymphocytes % (Manual) Monocytes % (Manual) Lymphocytes # (Manual) POC ABG pH POC ABG pCO2 POC ABG pO2 Sodium 135 L Potassium Chloride Carbon Dioxide 18 L BUN 34 H Glucose 198 H POC Glucose 248 H Hemoglobin A1c Calcium 7.9 L Phosphorus 1.8 L D ALT C-Reactive Protein Total Protein Albumin 01/26/17 01/26/17 01/27/17 23:09 23:19 00:22 RBC Hgb Hct RDW Lymph % (Auto) [place] % (Auto) Lymph # [place] # Seg Neutrophils % Seg Neuts % (Manual) Lymphocytes % (Manual) Monocytes % (Manual) Lymphocytes # (Manual) POC ABG pH POC ABG pCO2 POC ABG pO2 Sodium Potassium Chloride Carbon Dioxide 14 L BUN 34 H Glucose 301 H POC Glucose 384 H 339 H Hemoglobin A1c Calcium 7.7 L Phosphorus ALT C-Reactive Protein Total Protein Albumin 01/27/17 01/27/17 01/27/17 00:55 01:22 02:39 RBC Hgb Hct RDW Lymph % (Auto) [place] % (Auto) Lymph # [place] # Seg Neutrophils % Seg Neuts % (Manual) Lymphocytes % (Manual) Monocytes % (Manual) Lymphocytes # (Manual) POC ABG pH POC ABG pCO2 POC ABG pO2 Sodium Potassium Chloride Carbon Dioxide 14 L BUN 33 H Glucose 330 H POC Glucose 301 H 261 H Hemoglobin A1c Calcium 7.5 L Phosphorus ALT C-Reactive Protein Total Protein Albumin 01/27/17 01/27/17 01/27/17 03:47 04:32 04:51 RBC 3.49 L Hgb 10.8 L Hct 31.8 L RDW 12.7 L Lymph % (Auto) 10.1 L [place] % (Auto) 10.4 H Lymph # 0.9 L [place] # 0.9 H Seg Neutrophils % 79.3 H Seg Neuts % (Manual) Lymphocytes % (Manual) Monocytes % (Manual) Lymphocytes # (Manual) POC ABG pH POC ABG pCO2 POC ABG pO2 Sodium Potassium Chloride Carbon Dioxide BUN Glucose POC Glucose 223 H 165 H Hemoglobin A1c Calcium Phosphorus ALT C-Reactive Protein Total Protein Albumin 01/27/17 01/27/17 01/27/17 04:51 06:36 07:40 RBC Hgb Hct RDW Lymph % (Auto) [place] % (Auto) Lymph # [place] # Seg Neutrophils % Seg Neuts % (Manual) Lymphocytes % (Manual) Monocytes % (Manual) Lymphocytes # (Manual) POC ABG pH POC ABG pCO2 POC ABG pO2 Sodium Potassium Chloride 108.0 H Carbon Dioxide 19 L BUN 31 H Glucose 149 H POC Glucose 126 H 152 H Hemoglobin A1c Calcium 8.1 L Phosphorus ALT 5 L C-Reactive Protein Total Protein 6.0 L Albumin 2.5 L 01/27/17 01/27/17 01/27/17 08:29 08:29 08:53 RBC Hgb Hct RDW Lymph % (Auto) [place] % (Auto) Lymph # [place] # Seg Neutrophils % Seg Neuts % (Manual) Lymphocytes % (Manual) Monocytes % (Manual) Lymphocytes # (Manual) POC ABG pH POC ABG pCO2 POC ABG pO2 Sodium Potassium Chloride Carbon Dioxide BUN Glucose POC Glucose 180 H Hemoglobin A1c 16.1 H Calcium Phosphorus 1.1 L D ALT C-Reactive Protein Total Protein Albumin 01/27/17 01/27/17 01/27/17 09:59 11:48 11:53 RBC Hgb Hct RDW Lymph % (Auto) [place] % (Auto) Lymph # [place] # Seg Neutrophils % Seg Neuts % (Manual) Lymphocytes % (Manual) Monocytes % (Manual) Lymphocytes # (Manual) POC ABG pH 7.348 L POC ABG pCO2 30.6 L POC ABG pO2 51 L Sodium Potassium Chloride Carbon Dioxide BUN Glucose POC Glucose 197 H 213 H Hemoglobin A1c Calcium Phosphorus ALT C-Reactive Protein Total Protein Albumin 01/27/17 01/27/17 01/27/17 13:40 16:08 16:26 RBC Hgb Hct RDW Lymph % (Auto) [place] % (Auto) Lymph # [place] # Seg Neutrophils % Seg Neuts % (Manual) Lymphocytes % (Manual) Monocytes % (Manual) Lymphocytes # (Manual) POC ABG pH POC ABG pCO2 POC ABG pO2 Sodium 133 L 135 L Potassium 3.5 L 3.4 L Chloride Carbon Dioxide 18 L 19 L BUN 24 H 23 H Glucose 223 H 200 H POC Glucose 196 H Hemoglobin A1c Calcium 7.5 L 7.9 L Phosphorus ALT C-Reactive Protein Total Protein Albumin 01/27/17 01/27/17 01/28/17 20:16 21:41 05:15 RBC 3.11 L Hgb 9.6 L Hct 28.3 L RDW 12.7 L Lymph % (Auto) [place] % (Auto) Lymph # [place] # Seg Neutrophils % Seg Neuts % (Manual) 73.0 H Lymphocytes % (Manual) 9.0 L Monocytes % (Manual) 8.0 H Lymphocytes # (Manual) 0.8 L POC ABG pH POC ABG pCO2 POC ABG pO2 Sodium 135 L Potassium 3.4 L Chloride Carbon Dioxide 18 L BUN 21 H Glucose 246 H POC Glucose 247 H Hemoglobin A1c Calcium 7.4 L Phosphorus ALT C-Reactive Protein Total Protein Albumin 01/28/17 01/28/17 01/28/17 08:09 09:43 11:35 RBC Hgb Hct RDW Lymph % (Auto) [place] % (Auto) Lymph # [place] # Seg Neutrophils % Seg Neuts % (Manual) Lymphocytes % (Manual) Monocytes % (Manual) Lymphocytes # (Manual) POC ABG pH POC ABG pCO2 POC ABG pO2 Sodium 134 L Potassium 3.4 L Chloride Carbon Dioxide 16 L BUN 21 H Glucose 267 H POC Glucose 212 H 278 H Hemoglobin A1c Calcium 7.6 L Phosphorus ALT C-Reactive Protein Total Protein Albumin 01/28/17 01/28/17 01/28/17 13:35 16:06 21:36 RBC Hgb Hct RDW Lymph % (Auto) [place] % (Auto) Lymph # [place] # Seg Neutrophils % Seg Neuts % (Manual) Lymphocytes % (Manual) Monocytes % (Manual) Lymphocytes # (Manual) POC ABG pH POC ABG pCO2 POC ABG pO2 Sodium Potassium Chloride Carbon Dioxide BUN Glucose POC Glucose 291 H 237 H Hemoglobin A1c Calcium Phosphorus ALT C-Reactive Protein 35.80 H Total Protein Albumin 01/29/17 01/29/17 04:52 07:33 RBC Hgb Hct RDW Lymph % (Auto) [place] % (Auto) Lymph # [place] # Seg Neutrophils % Seg Neuts % (Manual) Lymphocytes % (Manual) Monocytes % (Manual) Lymphocytes # (Manual) POC ABG pH POC ABG pCO2 27.9 L POC ABG pO2 Sodium 131 L Potassium 3.1 L Chloride 96.9 L Carbon Dioxide 19 L BUN Glucose 256 H POC Glucose Hemoglobin A1c Calcium 7.6 L Phosphorus 2.1 L D ALT C-Reactive Protein Total Protein Albumin
[2017-01-29] MEDS: TYLENOL PO PRN (18:42)
[2017-01-29] MEDS: ZOFRAN IV PRN (18:44)
[2017-01-30] MEDS: DUONEB 0.5 MG-3 MG/3 ML SOLN IH SCH ×5 (02:18→20:23)
[2017-01-30] MEDS: ZOFRAN IV PRN (04:33)
[2017-01-30] MEDS: DILAUDID IV PRN ×2 (04:33→19:39)
--- NOTE | 2017-01-30 11:17 | Progress Note ---
Assessment and Plan - Patient Problems (1) Aspiration pneumonia Current Visit: Yes Status: Acute Qualifiers: Aspiration pneumonia type: A Laterality: L Lung location: L Plan to address problem: - CXR demonstrates increasing Right mid lung infiltrate - CRP significantly elevated - continue empiric AB's - continue supplemental oxygen to keep sats > 94% - follow sputum C&S - prn BIPAP - continue aspiration precautions (2) Acute hypoxemic respiratory failure Current Visit: Yes Status: Acute Plan to address problem: - as above - improved today (3) DKA (diabetic ketoacidoses) Current Visit: Yes Status: Acute Qualifiers: Diabetes mellitus type: D Diabetes mellitus complication detail: D Plan to address problem: - resolved - continue SSI - introduced home meds (4) Discharge planning issues Current Visit: Yes Status: Acute Plan to address problem: - continue to monitor on telemetry Subjective Date of service: 01/30/17 Principal diagnosis: Acute Hypoxemic Respiratory Failure; DKA Interval history: Seen and examined at bedside; 24 hour events reviewed; nursing and respiratory care staff consulted; no adverse overnight events reported to me; resting in bed ; no hemoptysis; denies acute chest pains; still SOB Objective Vital Signs - 12hr 01/30/17 01/30/17 01/30/17 00:00 02:22 02:35 Temperature 98.7 F Pulse Rate [ 93 H 94 H Anterior Bilateral Throughout] Pulse Rate [ Posterior Bilateral Throughout] Pulse Rate [ 88 Right] Respiratory 18 Rate Respiratory 20 20 Rate [Anterior Bilateral Throughout] Respiratory Rate [Posterior Bilateral Throughout] Blood Pressure 118/70 [Right Arm] O2 Sat by Pulse 96 Oximetry 01/30/17 01/30/17 01/30/17 04:00 08:00 09:40 Temperature 98.5 F 100.3 F H Pulse Rate [ 81 Anterior Bilateral Throughout] Pulse Rate [ 88 Posterior Bilateral Throughout] Pulse Rate [ 93 H 88 Right] Respiratory 18 22 Rate Respiratory 20 Rate [Anterior Bilateral Throughout] Respiratory 18 Rate [Posterior Bilateral Throughout] Blood Pressure 140/74 130/71 [Right Arm] O2 Sat by Pulse 98 94 Oximetry 01/30/17 09:56 Temperature Pulse Rate [ 88 Anterior Bilateral Throughout] Pulse Rate [ 88 Posterior Bilateral Throughout] Pulse Rate [ Right] Respiratory Rate Respiratory 20 Rate [Anterior Bilateral Throughout] Respiratory 20 Rate [Posterior Bilateral Throughout] Blood Pressure [Right Arm] O2 Sat by Pulse Oximetry Constitutional: alert, appears uncomfortable Eyes: non-icteric ENT: oropharynx moist Neck: supple, no lymphadenopathy Effort: mildly labored Ascultation: Right: rales, Left: clear Cardiovascular: regular rate and rhythm Gastrointestinal: normoactive bowel sounds, soft, non-tender, non-distended Integumentary: normal Extremities: no cyanosis, no edema, pulses normal, no ischemia or petechiae Neurologic: normal mental status, non-focal exam, pupils equal and round, motor strength normal and Psychiatric: mood appropriate, affect normal CBC and BMP: 02/02/17 05:22 02/02/17 05:22 ABG, PT/INR, D-dimer: ABG POC ABG pH 7.435 (7.35-7.45) 01/29/17 04:52 POC ABG pCO2 27.9 (35-45) L 01/29/17 04:52 POC ABG pO2 98 (80-105) 01/29/17 04:52 POC ABG HCO3 18.7 01/29/17 04:52 POC ABG Total CO2 20 01/29/17 04:52 POC ABG O2 Sat 98 01/29/17 04:52 Abnormal lab findings: Abnormal Labs 01/26/17 01/26/17 01/26/17 20:52 20:52 21:29 RBC Hgb Hct RDW Lymph % (Auto) [place] % (Auto) Lymph # [place] # Seg Neutrophils % Seg Neuts % (Manual) Lymphocytes % (Manual) Monocytes % (Manual) Lymphocytes # (Manual) POC ABG pH POC ABG pCO2 POC ABG pO2 Sodium 135 L Potassium Chloride Carbon Dioxide 18 L BUN 34 H Glucose 198 H POC Glucose 248 H Hemoglobin A1c Calcium 7.9 L Phosphorus 1.8 L D ALT C-Reactive Protein Total Protein Albumin 01/26/17 01/26/17 01/27/17 23:09 23:19 00:22 RBC Hgb Hct RDW Lymph % (Auto) [place] % (Auto) Lymph # [place] # Seg Neutrophils % Seg Neuts % (Manual) Lymphocytes % (Manual) Monocytes % (Manual) Lymphocytes # (Manual) POC ABG pH POC ABG pCO2 POC ABG pO2 Sodium Potassium Chloride Carbon Dioxide 14 L BUN 34 H Glucose 301 H POC Glucose 384 H 339 H Hemoglobin A1c Calcium 7.7 L Phosphorus ALT C-Reactive Protein Total Protein Albumin 01/27/17 01/27/17 01/27/17 00:55 01:22 02:39 RBC Hgb Hct RDW Lymph % (Auto) [place] % (Auto) Lymph # [place] # Seg Neutrophils % Seg Neuts % (Manual) Lymphocytes % (Manual) Monocytes % (Manual) Lymphocytes # (Manual) POC ABG pH POC ABG pCO2 POC ABG pO2 Sodium Potassium Chloride Carbon Dioxide 14 L BUN 33 H Glucose 330 H POC Glucose 301 H 261 H Hemoglobin A1c Calcium 7.5 L Phosphorus ALT C-Reactive Protein Total Protein Albumin 01/27/17 01/27/17 01/27/17 03:47 04:32 04:51 RBC 3.49 L Hgb 10.8 L Hct 31.8 L RDW 12.7 L Lymph % (Auto) 10.1 L [place] % (Auto) 10.4 H Lymph # 0.9 L [place] # 0.9 H Seg Neutrophils % 79.3 H Seg Neuts % (Manual) Lymphocytes % (Manual) Monocytes % (Manual) Lymphocytes # (Manual) POC ABG pH POC ABG pCO2 POC ABG pO2 Sodium Potassium Chloride Carbon Dioxide BUN Glucose POC Glucose 223 H 165 H Hemoglobin A1c Calcium Phosphorus ALT C-Reactive Protein Total Protein Albumin 01/27/17 01/27/17 01/27/17 04:51 06:36 07:40 RBC Hgb Hct RDW Lymph % (Auto) [place] % (Auto) Lymph # [place] # Seg Neutrophils % Seg Neuts % (Manual) Lymphocytes % (Manual) Monocytes % (Manual) Lymphocytes # (Manual) POC ABG pH POC ABG pCO2 POC ABG pO2 Sodium Potassium Chloride 108.0 H Carbon Dioxide 19 L BUN 31 H Glucose 149 H POC Glucose 126 H 152 H Hemoglobin A1c Calcium 8.1 L Phosphorus ALT 5 L C-Reactive Protein Total Protein 6.0 L Albumin 2.5 L 01/27/17 01/27/17 01/27/17 08:29 08:29 08:53 RBC Hgb Hct RDW Lymph % (Auto) [place] % (Auto) Lymph # [place] # Seg Neutrophils % Seg Neuts % (Manual) Lymphocytes % (Manual) Monocytes % (Manual) Lymphocytes # (Manual) POC ABG pH POC ABG pCO2 POC ABG pO2 Sodium Potassium Chloride Carbon Dioxide BUN Glucose POC Glucose 180 H Hemoglobin A1c 16.1 H Calcium Phosphorus 1.1 L D ALT C-Reactive Protein Total Protein Albumin 01/27/17 01/27/17 01/27/17 09:59 11:48 11:53 RBC Hgb Hct RDW Lymph % (Auto) [place] % (Auto) Lymph # [place] # Seg Neutrophils % Seg Neuts % (Manual) Lymphocytes % (Manual) Monocytes % (Manual) Lymphocytes # (Manual) POC ABG pH 7.348 L POC ABG pCO2 30.6 L POC ABG pO2 51 L Sodium Potassium Chloride Carbon Dioxide BUN Glucose POC Glucose 197 H 213 H Hemoglobin A1c Calcium Phosphorus ALT C-Reactive Protein Total Protein Albumin 01/27/17 01/27/17 01/27/17 13:40 16:08 16:26 RBC Hgb Hct RDW Lymph % (Auto) [place] % (Auto) Lymph # [place] # Seg Neutrophils % Seg Neuts % (Manual) Lymphocytes % (Manual) Monocytes % (Manual) Lymphocytes # (Manual) POC ABG pH POC ABG pCO2 POC ABG pO2 Sodium 133 L 135 L Potassium 3.5 L 3.4 L Chloride Carbon Dioxide 18 L 19 L BUN 24 H 23 H Glucose 223 H 200 H POC Glucose 196 H Hemoglobin A1c Calcium 7.5 L 7.9 L Phosphorus ALT C-Reactive Protein Total Protein Albumin 01/27/17 01/27/17 01/28/17 20:16 21:41 05:15 RBC 3.11 L Hgb 9.6 L Hct 28.3 L RDW 12.7 L Lymph % (Auto) [place] % (Auto) Lymph # [place] # Seg Neutrophils % Seg Neuts % (Manual) 73.0 H Lymphocytes % (Manual) 9.0 L Monocytes % (Manual) 8.0 H Lymphocytes # (Manual) 0.8 L POC ABG pH POC ABG pCO2 POC ABG pO2 Sodium 135 L Potassium 3.4 L Chloride Carbon Dioxide 18 L BUN 21 H Glucose 246 H POC Glucose 247 H Hemoglobin A1c Calcium 7.4 L Phosphorus ALT C-Reactive Protein Total Protein Albumin 01/28/17 01/28/17 01/28/17 08:09 09:43 11:35 RBC Hgb Hct RDW Lymph % (Auto) [place] % (Auto) Lymph # [place] # Seg Neutrophils % Seg Neuts % (Manual) Lymphocytes % (Manual) Monocytes % (Manual) Lymphocytes # (Manual) POC ABG pH POC ABG pCO2 POC ABG pO2 Sodium 134 L Potassium 3.4 L Chloride Carbon Dioxide 16 L BUN 21 H Glucose 267 H POC Glucose 212 H 278 H Hemoglobin A1c Calcium 7.6 L Phosphorus ALT C-Reactive Protein Total Protein Albumin 01/28/17 01/28/17 01/28/17 13:35 16:06 21:36 RBC Hgb Hct RDW Lymph % (Auto) [place] % (Auto) Lymph # [place] # Seg Neutrophils % Seg Neuts % (Manual) Lymphocytes % (Manual) Monocytes % (Manual) Lymphocytes # (Manual) POC ABG pH POC ABG pCO2 POC ABG pO2 Sodium Potassium Chloride Carbon Dioxide BUN Glucose POC Glucose 291 H 237 H Hemoglobin A1c Calcium Phosphorus ALT C-Reactive Protein 35.80 H Total Protein Albumin 01/29/17 01/29/17 01/29/17 04:52 07:33 07:56 RBC Hgb Hct RDW Lymph % (Auto) [place] % (Auto) Lymph # [place] # Seg Neutrophils % Seg Neuts % (Manual) Lymphocytes % (Manual) Monocytes % (Manual) Lymphocytes # (Manual) POC ABG pH POC ABG pCO2 27.9 L POC ABG pO2 Sodium 131 L Potassium 3.1 L Chloride 96.9 L Carbon Dioxide 19 L BUN Glucose 256 H POC Glucose 254 H Hemoglobin A1c Calcium 7.6 L Phosphorus 2.1 L D ALT C-Reactive Protein Total Protein Albumin 01/29/17 01/29/17 01/29/17 12:20 16:12 18:20 RBC Hgb Hct RDW Lymph % (Auto) [place] % (Auto) Lymph # [place] # Seg Neutrophils % Seg Neuts % (Manual) Lymphocytes % (Manual) Monocytes % (Manual) Lymphocytes # (Manual) POC ABG pH POC ABG pCO2 POC ABG pO2 Sodium Potassium Chloride Carbon Dioxide BUN Glucose POC Glucose 327 H 357 H 356 H Hemoglobin A1c Calcium Phosphorus ALT C-Reactive Protein Total Protein Albumin 01/29/17 01/30/17 21:29 08:30 RBC Hgb Hct RDW Lymph % (Auto) [place] % (Auto) Lymph # [place] # Seg Neutrophils % Seg Neuts % (Manual) Lymphocytes % (Manual) Monocytes % (Manual) Lymphocytes # (Manual) POC ABG pH POC ABG pCO2 POC ABG pO2 Sodium Potassium Chloride Carbon Dioxide BUN Glucose POC Glucose 285 H 230 H Hemoglobin A1c Calcium Phosphorus ALT C-Reactive Protein Total Protein Albumin
[2017-01-30] MEDS: LOVENOX SUB-Q SCH (12:00)
[2017-01-30] MEDS: PEPCID PO SCH (12:01)
[2017-01-30] MEDS: LEVAQUIN PO SCH (12:01)
[2017-01-30] MEDS: ROBITUSSIN DM PO PRN (12:07)
--- NOTE | 2017-01-30 17:44 | Progress Note ---
Assessment and Plan Assessment and plan: --Diabetic ketoacidosis, resolved Sugars remain uncontrolled , increase 7030 long-acting insulin. IV fluids, Accu-Chek sliding scale coverage and ADA diet diabetic education, HbA1c 16.1 --Acute hypoxic hypercapnic respiratory failure Continue to aspiration pneumonia ,continue oxygen by nasal cannula titrated to O2 sats more than 90% Nebulizers, IV antibiotics, follow cultures Pulmonary following, follow up chest x-ray tomorrow to check improvement --Electrolyte abnormalities, closely monitor electrolytes and correct as needed --Acute renal failure, secondary to ATN resolved --Moderate protein calorie malnutrition Supportive care nutrition supplements --Medical non-compliance Counseling done patient strongly advised to adhere to diet and treatment plan Verbalized understanding --DC planning per case management Full discharge in 1-2 days if stable Consults and recommendations noted and appreciated Patient's condition treatment plan discussed in detail with the patient and answered all his questions History Interval history: Patient seen and evaluated medical records reviewed Feels slightly better no new complaints On nasal cannula oxygen, blood sugars are reasonable levels still uncontrolled Denies any nausea vomiting Denies chest pain Alert awake oriented 3 not in acute distress Hospitalist Physical - Constitutional Vitals: Temp Pulse Resp BP Pulse Ox 99.2 F 88 22 142/76 94 01/30/17 12:00 01/30/17 16:15 01/30/17 16:15 01/30/17 12:00 01/30/17 16:15 General appearance: Present: no acute distress, well-nourished - EENT Eyes: Present: PERRL, EOM intact - Neck Neck: Present: supple, normal ROM - Respiratory Respiratory effort: normal Respiratory: bilateral: diminished, rhonchi ( occasional) - Cardiovascular Rhythm: regular Heart Sounds: Present: S1 & S2 - Extremities Extremities: no ischemia, pulses intact, pulses symmetrical Peripheral Pulses: within normal limits - Abdominal General gastrointestinal: soft, non-tender, non-distended, normal bowel sounds - Integumentary Integumentary: Present: clear, warm - Psychiatric Psychiatric: appropriate mood/affect, cooperative - Neurologic Neurologic: CNII-XII intact, moves all extremities Results - Labs CBC & Chem 7: 01/28/17 05:15 01/29/17 07:33 Labs: Laboratory Last Values WBC 9.1 K/mm3 (4.5-11.0) 01/28/17 05:15 RBC 3.11 M/mm3 (3.65-5.03) L 01/28/17 05:15 Hgb 9.6 gm/dl (11.8-15.2) L 01/28/17 05:15 Hct 28.3 % (35.5-45.6) L 01/28/17 05:15 MCV 91 fl (84-94) 01/28/17 05:15 MCH 31 pg (28-32) 01/28/17 05:15 MCHC 34 % (32-34) 01/28/17 05:15 RDW 12.7 % (13.2-15.2) L 01/28/17 05:15 Plt Count 176 K/mm3 (140-440) 01/28/17 05:15 Lymph % (Auto) 10.1 % (13.4-35.0) L 01/27/17 04:51 [place] % (Auto) 10.4 % (0.0-7.3) H 01/27/17 04:51 Eos % (Auto) 0.0 % (0.0-4.3) 01/27/17 04:51 Baso % (Auto) 0.2 % (0.0-1.8) 01/27/17 04:51 Lymph # 0.9 K/mm3 (1.2-5.4) L 01/27/17 04:51 [place] # 0.9 K/mm3 (0.0-0.8) H 01/27/17 04:51 Eos # 0.0 K/mm3 (0.0-0.4) 01/27/17 04:51 Baso # 0.0 K/mm3 (0.0-0.1) 01/27/17 04:51 Add Manual Diff Complete 01/28/17 05:15 Total Counted 100 01/28/17 05:15 Seg Neutrophils % 79.3 % (40.0-70.0) H 01/27/17 04:51 Seg Neuts % (Manual) 73.0 % (40.0-70.0) H 01/28/17 05:15 Band Neutrophils % 10.0 % 01/28/17 05:15 Lymphocytes % (Manual) 9.0 % (13.4-35.0) L 01/28/17 05:15 Reactive Lymphs % (Man) 0 % 01/28/17 05:15 Monocytes % (Manual) 8.0 % (0.0-7.3) H 01/28/17 05:15 Eosinophils % (Manual) 0 % (0.0-4.3) 01/28/17 05:15 Basophils % (Manual) 0 % (0.0-1.8) 01/28/17 05:15 Metamyelocytes % 0 % 01/28/17 05:15 Myelocytes % 0 % 01/28/17 05:15 Promyelocytes % 0 % 01/28/17 05:15 Blast Cells % 0 % 01/28/17 05:15 Nucleated RBC % Not Reportable 01/28/17 05:15 Seg Neutrophils # 7.0 K/mm3 (1.8-7.7) 01/27/17 04:51 Seg Neutrophils # Man 6.6 K/mm3 (1.8-7.7) 01/28/17 05:15 Band Neutrophils # 0.9 K/mm3 01/28/17 05:15 Lymphocytes # (Manual) 0.8 K/mm3 (1.2-5.4) L 01/28/17 05:15 Abs React Lymphs (Man) 0.0 K/mm3 01/28/17 05:15 Monocytes # (Manual) 0.7 K/mm3 (0.0-0.8) 01/28/17 05:15 Eosinophils # (Manual) 0.0 K/mm3 (0.0-0.4) 01/28/17 05:15 Basophils # (Manual) 0.0 K/mm3 (0.0-0.1) 01/28/17 05:15 Metamyelocytes # 0.0 K/mm3 01/28/17 05:15 Myelocytes # 0.0 K/mm3 01/28/17 05:15 Promyelocytes # 0.0 K/mm3 01/28/17 05:15 Blast Cells # 0.0 K/mm3 01/28/17 05:15 WBC Morphology Not Reportable 01/28/17 05:15 Hypersegmented Neuts Not Reportable 01/28/17 05:15 Hyposegmented Neuts Not Reportable 01/28/17 05:15 Hypogranular Neuts Not Reportable 01/28/17 05:15 Smudge Cells Not Reportable 01/28/17 05:15 Toxic Granulation Not Reportable 01/28/17 05:15 Toxic Vacuolation Not Reportable 01/28/17 05:15 Dohle Bodies Not Reportable 01/28/17 05:15 Pelger-Huet Anomaly Not Reportable 01/28/17 05:15 Richard Rods Not Reportable 01/28/17 05:15 Platelet Estimate Consistent w auto 01/28/17 05:15 Clumped Platelets Not Reportable 01/28/17 05:15 Plt Clumps, EDTA Not Reportable 01/28/17 05:15 Large Platelets Not Reportable 01/28/17 05:15 Giant Platelets Not Reportable 01/28/17 05:15 Platelet Satelliting Not Reportable 01/28/17 05:15 Plt Morphology Comment Not Reportable 01/28/17 05:15 RBC Morphology Not Reportable 01/28/17 05:15 Dimorphic RBCs Not Reportable 01/28/17 05:15 Polychromasia Not Reportable 01/28/17 05:15 Hypochromasia 1+ 01/28/17 05:15 Poikilocytosis Not Reportable 01/28/17 05:15 Anisocytosis 1+ 01/28/17 05:15 Microcytosis Not Reportable 01/28/17 05:15 Macrocytosis Not Reportable 01/28/17 05:15 Spherocytes Not Reportable 01/28/17 05:15 Pappenheimer Bodies Not Reportable 01/28/17 05:15 Sickle Cells Not Reportable 01/28/17 05:15 Target Cells Not Reportable 01/28/17 05:15 Tear Drop Cells Not Reportable 01/28/17 05:15 Ovalocytes Not Reportable 01/28/17 05:15 Helmet Cells Not Reportable 01/28/17 05:15 Esquivel-Hockinson Bodies Not Reportable 01/28/17 05:15 [place] Rings Not Reportable 01/28/17 05:15 [place] Cells Not Reportable 01/28/17 05:15 Bite Cells Not Reportable 01/28/17 05:15 Crenated Cell Not Reportable 01/28/17 05:15 Elliptocytes Not Reportable 01/28/17 05:15 Acanthocytes (Spur) Not Reportable 01/28/17 05:15 Rouleaux Not Reportable 01/28/17 05:15 Hemoglobin C Crystals Not Reportable 01/28/17 05:15 Schistocytes Not Reportable 01/28/17 05:15 Malaria parasites Not Reportable 01/28/17 05:15 Kevin Bodies Not Reportable 01/28/17 05:15 Hem Pathologist Commnt No 01/28/17 05:15 POC ABG pH 7.435 (7.35-7.45) 01/29/17 04:52 POC ABG pCO2 27.9 (35-45) L 01/29/17 04:52 POC ABG pO2 98 (80-105) 01/29/17 04:52 POC ABG HCO3 18.7 01/29/17 04:52 POC ABG Total CO2 20 01/29/17 04:52 POC ABG O2 Sat 98 01/29/17 04:52 POC ABG Base Excess -6 01/29/17 04:52 VBG pH 7.210 (7.320-7.420) L 01/26/17 12:23 FiO2 50 % 01/29/17 04:52 Sodium 131 mmol/L (137-145) L 01/29/17 07:33 Potassium 3.1 mmol/L (3.6-5.0) L 01/29/17 07:33 Chloride 96.9 mmol/L (98-107) L 01/29/17 07:33 Carbon Dioxide 19 mmol/L (22-30) L 01/29/17 07:33 Anion Gap 18 mmol/L 01/29/17 07:33 BUN 17 mg/dL (9-20) 01/29/17 07:33 Creatinine 1.0 mg/dL (0.8-1.5) 01/29/17 07:33 Estimated GFR > 60 ml/min 01/29/17 07:33 BUN/Creatinine Ratio 17.00 % 01/29/17 07:33 Glucose 256 mg/dL (75-100) H 01/29/17 07:33 POC Glucose 238 (70-105) H 01/30/17 15:23 Hemoglobin A1c 16.1 % (4-6) H 01/27/17 08:29 Lactic Acid 1.0 mmol/L (0.7-2.0) 01/28/17 13:39 Calcium 7.6 mg/dL (8.4-10.2) L 01/29/17 07:33 Phosphorus 2.1 mg/dL (2.5-4.5) L D 01/29/17 07:33 Magnesium 1.8 mg/dL (1.7-2.3) 01/29/17 07:33 Total Bilirubin 0.5 mg/dL (0.1-1.2) 01/27/17 04:51 AST 7 units/L (5-40) 01/27/17 04:51 ALT 5 units/L (7-56) L 01/27/17 04:51 Alkaline Phosphatase 81 units/L (35-129) 01/27/17 04:51 Total Creatine Kinase 29 units/L (55-170) L 01/26/17 12:25 CK-MB (CK-2) 1.3 ng/mL (0.0-4.0) 01/26/17 12:25 CK-MB (CK-2) Rel Index 4.4 (0-4) H 01/26/17 12:25 Troponin T < 0.010 ng/mL (0.00-0.029) 01/26/17 12:25 C-Reactive Protein 35.80 mg/dL (0.00-1.30) H 01/28/17 13:35 Total Protein 6.0 g/dL (6.3-8.2) L 01/27/17 04:51 Albumin 2.5 g/dL (3.9-5) L 01/27/17 04:51 Albumin/Globulin Ratio 0.7 % 01/27/17 04:51 Urine Color Straw (Yellow) 01/26/17 14:26 Urine Turbidity Clear (Clear) 01/26/17 14:26 Urine pH 5.0 (5.0-7.0) 01/26/17 14:26 Ur Specific [place] 1.021 (1.003-1.030) 01/26/17 14:26 Urine Protein 30 mg/dl mg/dL (Negative) 01/26/17 14:26 Urine Glucose (UA) >=500 mg/dL (Negative) 01/26/17 14:26 Urine Ketones 80 mg/dL (Negative) 01/26/17 14:26 Urine Blood Sm (Negative) 01/26/17 14:26 Urine Nitrite Neg (Negative) 01/26/17 14:26 Urine Bilirubin Neg (Negative) 01/26/17 14:26 Urine Urobilinogen < 2.0 mg/dL (<2.0) 01/26/17 14:26 Ur Leukocyte Esterase Neg (Negative) 01/26/17 14:26 Urine WBC (Auto) 2.0 /HPF (0.0-6.0) 01/26/17 14:26 Urine RBC (Auto) 4.0 /HPF (0.0-6.0) 01/26/17 14:26 Urine Bacteria (Auto) 1+ /HPF (Negative) 01/26/17 14:26 Urine Mucus Few /HPF 01/26/17 14:26 Ketones mmol/L (-0.28) 01/26/17 12:23
[2017-01-31] MEDS: DUONEB 0.5 MG-3 MG/3 ML SOLN IH SCH ×4 (02:34→21:23)
[2017-01-31 07:06] LABS: Alanine Aminotransferase 9 units/L (7-56); Albumin/Globulin Ratio 0.5 %; Alkaline Phosphatase 177 units/L (35-129); BUN/Creatinine Ratio 12.22; Bilirubin,Total 0.7 mg/dL (0.1-1.2); Blood Urea Nitrogen 11 mg/dL (9-20); Calcium 7.6 mg/dL (8.4-10.2); Carbon Dioxide 26 mmol/L (22-30); Chloride 94.7 mmol/L (98-107); Glucose 177 mg/dL (75-100); Magnesium 1.8 mg/dL (1.7-2.3); Phosphorous 3.3 mg/dL (2.5-4.5); Potassium 3.5 mmol/L (3.6-5.0); Sodium 134 mmol/L (137-145)
[2017-01-31 07:07] LABS: Anion Gap 17 mmol/L
[2017-01-31] MEDS: ROBITUSSIN DM PO PRN ×2 (09:35→18:00)
[2017-01-31] MEDS: PEPCID PO SCH (09:35)
[2017-01-31] MEDS: LOVENOX SUB-Q SCH (09:36)
--- NOTE | 2017-01-31 09:44 | XRay Report ---
Chest 2 views: Compared to 01/28/17. History: Followup of pneumonia. Findings: Normal cardiomediastinal silhouette. Trachea is midline. Airspace patchy opacities are noted bilaterally. Increase in airspace opacities compared to previous study. Impression: Increase in airspace opacities bilaterally compared to previous study.
--- NOTE | 2017-01-31 11:21 | Progress Note ---
Assessment and Plan - Patient Problems (1) Aspiration pneumonia Current Visit: Yes Status: Acute Qualifiers: Aspiration pneumonia type: A Laterality: L Lung location: L Plan to address problem: - CXR demonstrates increasing Right mid lung infiltrate - CRP significantly elevated - continue empiric AB's - continue supplemental oxygen to keep sats > 94% - follow sputum C&S - prn BIPAP - continue aspiration precautions (2) Acute hypoxemic respiratory failure Current Visit: Yes Status: Acute Plan to address problem: - as above - improved today (3) DKA (diabetic ketoacidoses) Current Visit: Yes Status: Acute Qualifiers: Diabetes mellitus type: D Diabetes mellitus complication detail: D Plan to address problem: - resolved - continue SSI - introduced home meds (4) Discharge planning issues Current Visit: Yes Status: Acute Plan to address problem: - continue to monitor on telemetry Subjective Date of service: 01/31/17 Principal diagnosis: Acute Hypoxemic Respiratory Failure; DKA Interval history: Seen and examined at bedside; 24 hour events reviewed; nursing and respiratory care staff consulted; no adverse overnight events reported to me; remains on supplemental oxygen; no hemoptysis but still SOB Objective Vital Signs - 12hr 01/31/17 01/31/17 01/31/17 00:10 01:00 05:00 Temperature 98.3 F 98.4 F Pulse Rate 94 H Pulse Rate [ Anterior Bilateral Throughout] Pulse Rate [ 94 H 78 Left Radial] Respiratory 18 18 Rate Respiratory Rate [Anterior Bilateral Throughout] Blood Pressure 114/57 124/68 [Right Arm] O2 Sat by Pulse 98 97 Oximetry 01/31/17 01/31/17 01/31/17 08:00 09:27 09:28 Temperature 98.1 F Pulse Rate Pulse Rate [ 75 Anterior Bilateral Throughout] Pulse Rate [ 83 Left Radial] Respiratory 20 Rate Respiratory 15 Rate [Anterior Bilateral Throughout] Blood Pressure 147/81 [Right Arm] O2 Sat by Pulse 95 98 Oximetry 01/31/17 09:36 Temperature Pulse Rate Pulse Rate [ 82 Anterior Bilateral Throughout] Pulse Rate [ Left Radial] Respiratory Rate Respiratory 15 Rate [Anterior Bilateral Throughout] Blood Pressure [Right Arm] O2 Sat by Pulse Oximetry Constitutional: alert, appears uncomfortable Eyes: non-icteric ENT: oropharynx moist Neck: supple, no lymphadenopathy Effort: mildly labored Ascultation: Bilateral: rales Cardiovascular: regular rate and rhythm Gastrointestinal: normoactive bowel sounds, soft, non-tender, non-distended Integumentary: normal Extremities: no cyanosis, no edema, pulses normal, no ischemia or petechiae Neurologic: normal mental status, non-focal exam, pupils equal and round, motor strength normal and Psychiatric: mood appropriate, affect normal CBC and BMP: 02/02/17 05:22 02/02/17 05:22 ABG, PT/INR, D-dimer: ABG POC ABG pH 7.435 (7.35-7.45) 01/29/17 04:52 POC ABG pCO2 27.9 (35-45) L 01/29/17 04:52 POC ABG pO2 98 (80-105) 01/29/17 04:52 POC ABG HCO3 18.7 01/29/17 04:52 POC ABG Total CO2 20 01/29/17 04:52 POC ABG O2 Sat 98 01/29/17 04:52 Abnormal lab findings: Abnormal Labs 01/26/17 01/26/17 01/26/17 20:52 20:52 21:29 RBC Hgb Hct RDW Lymph % (Auto) [place] % (Auto) Lymph # [place] # Seg Neutrophils % Seg Neuts % (Manual) Lymphocytes % (Manual) Monocytes % (Manual) Lymphocytes # (Manual) POC ABG pH POC ABG pCO2 POC ABG pO2 Sodium 135 L Potassium Chloride Carbon Dioxide 18 L BUN 34 H Glucose 198 H POC Glucose 248 H Hemoglobin A1c Calcium 7.9 L Phosphorus 1.8 L D ALT Alkaline Phosphatase C-Reactive Protein Total Protein Albumin 01/26/17 01/26/17 01/27/17 23:09 23:19 00:22 RBC Hgb Hct RDW Lymph % (Auto) [place] % (Auto) Lymph # [place] # Seg Neutrophils % Seg Neuts % (Manual) Lymphocytes % (Manual) Monocytes % (Manual) Lymphocytes # (Manual) POC ABG pH POC ABG pCO2 POC ABG pO2 Sodium Potassium Chloride Carbon Dioxide 14 L BUN 34 H Glucose 301 H POC Glucose 384 H 339 H Hemoglobin A1c Calcium 7.7 L Phosphorus ALT Alkaline Phosphatase C-Reactive Protein Total Protein Albumin 01/27/17 01/27/17 01/27/17 00:55 01:22 02:39 RBC Hgb Hct RDW Lymph % (Auto) [place] % (Auto) Lymph # [place] # Seg Neutrophils % Seg Neuts % (Manual) Lymphocytes % (Manual) Monocytes % (Manual) Lymphocytes # (Manual) POC ABG pH POC ABG pCO2 POC ABG pO2 Sodium Potassium Chloride Carbon Dioxide 14 L BUN 33 H Glucose 330 H POC Glucose 301 H 261 H Hemoglobin A1c Calcium 7.5 L Phosphorus ALT Alkaline Phosphatase C-Reactive Protein Total Protein Albumin 01/27/17 01/27/17 01/27/17 03:47 04:32 04:51 RBC 3.49 L Hgb 10.8 L Hct 31.8 L RDW 12.7 L Lymph % (Auto) 10.1 L [place] % (Auto) 10.4 H Lymph # 0.9 L [place] # 0.9 H Seg Neutrophils % 79.3 H Seg Neuts % (Manual) Lymphocytes % (Manual) Monocytes % (Manual) Lymphocytes # (Manual) POC ABG pH POC ABG pCO2 POC ABG pO2 Sodium Potassium Chloride Carbon Dioxide BUN Glucose POC Glucose 223 H 165 H Hemoglobin A1c Calcium Phosphorus ALT Alkaline Phosphatase C-Reactive Protein Total Protein Albumin 01/27/17 01/27/17 01/27/17 04:51 06:36 07:40 RBC Hgb Hct RDW Lymph % (Auto) [place] % (Auto) Lymph # [place] # Seg Neutrophils % Seg Neuts % (Manual) Lymphocytes % (Manual) Monocytes % (Manual) Lymphocytes # (Manual) POC ABG pH POC ABG pCO2 POC ABG pO2 Sodium Potassium Chloride 108.0 H Carbon Dioxide 19 L BUN 31 H Glucose 149 H POC Glucose 126 H 152 H Hemoglobin A1c Calcium 8.1 L Phosphorus ALT 5 L Alkaline Phosphatase C-Reactive Protein Total Protein 6.0 L Albumin 2.5 L 01/27/17 01/27/17 01/27/17 08:29 08:29 08:53 RBC Hgb Hct RDW Lymph % (Auto) [place] % (Auto) Lymph # [place] # Seg Neutrophils % Seg Neuts % (Manual) Lymphocytes % (Manual) Monocytes % (Manual) Lymphocytes # (Manual) POC ABG pH POC ABG pCO2 POC ABG pO2 Sodium Potassium Chloride Carbon Dioxide BUN Glucose POC Glucose 180 H Hemoglobin A1c 16.1 H Calcium Phosphorus 1.1 L D ALT Alkaline Phosphatase C-Reactive Protein Total Protein Albumin 01/27/17 01/27/17 01/27/17 09:59 11:48 11:53 RBC Hgb Hct RDW Lymph % (Auto) [place] % (Auto) Lymph # [place] # Seg Neutrophils % Seg Neuts % (Manual) Lymphocytes % (Manual) Monocytes % (Manual) Lymphocytes # (Manual) POC ABG pH 7.348 L POC ABG pCO2 30.6 L POC ABG pO2 51 L Sodium Potassium Chloride Carbon Dioxide BUN Glucose POC Glucose 197 H 213 H Hemoglobin A1c Calcium Phosphorus ALT Alkaline Phosphatase C-Reactive Protein Total Protein Albumin 01/27/17 01/27/17 01/27/17 13:40 16:08 16:26 RBC Hgb Hct RDW Lymph % (Auto) [place] % (Auto) Lymph # [place] # Seg Neutrophils % Seg Neuts % (Manual) Lymphocytes % (Manual) Monocytes % (Manual) Lymphocytes # (Manual) POC ABG pH POC ABG pCO2 POC ABG pO2 Sodium 133 L 135 L Potassium 3.5 L 3.4 L Chloride Carbon Dioxide 18 L 19 L BUN 24 H 23 H Glucose 223 H 200 H POC Glucose 196 H Hemoglobin A1c Calcium 7.5 L 7.9 L Phosphorus ALT Alkaline Phosphatase C-Reactive Protein Total Protein Albumin 01/27/17 01/27/17 01/28/17 20:16 21:41 05:15 RBC 3.11 L Hgb 9.6 L Hct 28.3 L RDW 12.7 L Lymph % (Auto) [place] % (Auto) Lymph # [place] # Seg Neutrophils % Seg Neuts % (Manual) 73.0 H Lymphocytes % (Manual) 9.0 L Monocytes % (Manual) 8.0 H Lymphocytes # (Manual) 0.8 L POC ABG pH POC ABG pCO2 POC ABG pO2 Sodium 135 L Potassium 3.4 L Chloride Carbon Dioxide 18 L BUN 21 H Glucose 246 H POC Glucose 247 H Hemoglobin A1c Calcium 7.4 L Phosphorus ALT Alkaline Phosphatase C-Reactive Protein Total Protein Albumin 01/28/17 01/28/17 01/28/17 08:09 09:43 11:35 RBC Hgb Hct RDW Lymph % (Auto) [place] % (Auto) Lymph # [place] # Seg Neutrophils % Seg Neuts % (Manual) Lymphocytes % (Manual) Monocytes % (Manual) Lymphocytes # (Manual) POC ABG pH POC ABG pCO2 POC ABG pO2 Sodium 134 L Potassium 3.4 L Chloride Carbon Dioxide 16 L BUN 21 H Glucose 267 H POC Glucose 212 H 278 H Hemoglobin A1c Calcium 7.6 L Phosphorus ALT Alkaline Phosphatase C-Reactive Protein Total Protein Albumin 03/01/28/17 01/28/17 13:35 16:06 21:36 RBC Hgb Hct RDW Lymph % (Auto) [place] % (Auto) Lymph # [place] # Seg Neutrophils % Seg Neuts % (Manual) Lymphocytes % (Manual) Monocytes % (Manual) Lymphocytes # (Manual) POC ABG pH POC ABG pCO2 POC ABG pO2 Sodium Potassium Chloride Carbon Dioxide BUN Glucose POC Glucose 291 H 237 H Hemoglobin A1c Calcium Phosphorus ALT Alkaline Phosphatase C-Reactive Protein 35.80 H Total Protein Albumin 01/29/17 01/29/17 01/29/17 04:52 07:33 07:56 RBC Hgb Hct RDW Lymph % (Auto) [place] % (Auto) Lymph # [place] # Seg Neutrophils % Seg Neuts % (Manual) Lymphocytes % (Manual) Monocytes % (Manual) Lymphocytes # (Manual) POC ABG pH POC ABG pCO2 27.9 L POC ABG pO2 Sodium 131 L Potassium 3.1 L Chloride 96.9 L Carbon Dioxide 19 L BUN Glucose 256 H POC Glucose 254 H Hemoglobin A1c Calcium 7.6 L Phosphorus 2.1 L D ALT Alkaline Phosphatase C-Reactive Protein Total Protein Albumin 01/29/17 01/29/17 01/29/17 12:20 16:12 18:20 RBC Hgb Hct RDW Lymph % (Auto) [place] % (Auto) Lymph # [place] # Seg Neutrophils % Seg Neuts % (Manual) Lymphocytes % (Manual) Monocytes % (Manual) Lymphocytes # (Manual) POC ABG pH POC ABG pCO2 POC ABG pO2 Sodium Potassium Chloride Carbon Dioxide BUN Glucose POC Glucose 327 H 357 H 356 H Hemoglobin A1c Calcium Phosphorus ALT Alkaline Phosphatase C-Reactive Protein Total Protein Albumin 01/29/17 01/30/17 01/30/17 21:29 08:30 12:23 RBC Hgb Hct RDW Lymph % (Auto) [place] % (Auto) Lymph # [place] # Seg Neutrophils % Seg Neuts % (Manual) Lymphocytes % (Manual) Monocytes % (Manual) Lymphocytes # (Manual) POC ABG pH POC ABG pCO2 POC ABG pO2 Sodium Potassium Chloride Carbon Dioxide BUN Glucose POC Glucose 285 H 230 H 245 H Hemoglobin A1c Calcium Phosphorus ALT Alkaline Phosphatase C-Reactive Protein Total Protein Albumin 01/30/17 01/30/17 01/31/17 15:23 20:32 06:07 RBC Hgb Hct RDW Lymph % (Auto) [place] % (Auto) Lymph # [place] # Seg Neutrophils % Seg Neuts % (Manual) Lymphocytes % (Manual) Monocytes % (Manual) Lymphocytes # (Manual) POC ABG pH POC ABG pCO2 POC ABG pO2 Sodium 134 L Potassium 3.5 L Chloride 94.7 L Carbon Dioxide BUN Glucose 177 H POC Glucose 238 H 214 H Hemoglobin A1c Calcium 7.6 L Phosphorus ALT Alkaline Phosphatase 177 H C-Reactive Protein Total Protein 6.0 L Albumin 2.0 L
[2017-01-31] MEDS ORDERED: NACL ONE (12:18)
[2017-01-31] MEDS: DILAUDID IV PRN (13:23)
--- NOTE | 2017-01-31 14:48 | Progress Note ---
Assessment and Plan Assessment and plan: --Diabetic ketoacidosis, resolved Sugars reasonable control. Accu-Chek sliding scale coverage and ADA diet Had just 7030 insulin, hemoglobin A1c 16 Diabetic education --Acute hypoxic hypercapnic respiratory failure/aspiration pneumonia On IV antibiotics, cultures negative to date, symptoms slightly improved Follow-up chest x-ray worsening airspace disease, pulmonary following Check CT chest with contrast --Electrolyte abnormalities, closely monitor electrolytes and correct as needed --Acute renal failure, resolved --Moderate protein calorie malnutrition Supportive care nutrition supplements --Medical non-compliance Counseling done patient strongly advised to adhere to diet and treatment plan Verbalized understanding --DC planning per case management Closely monitor the patient, follow CT chest report, advise accordingly --DVT prophylaxis with Lovenox Plan of care discussed with the patient as well as his nurse History Interval history: No new events reported by the nursing staff Patient seen and evaluated in his room, still complains of mild chest cough and shortness of breath Repeat chest x-ray, worsening airspace disease Patient is on nasal cannula oxygen saturating 95% Patient denies nausea vomiting or abdominal pain Alert awake oriented 3 not in acute distress Hospitalist Physical - Constitutional Vitals: Temp Pulse Resp BP Pulse Ox 98.1 F 84 17 147/81 95 01/31/17 08:00 01/31/17 14:33 01/31/17 14:33 01/31/17 08:00 01/31/17 10:00 General appearance: Present: no acute distress, well-nourished - EENT Eyes: Present: PERRL, EOM intact - Neck Neck: Present: supple, normal ROM - Respiratory Respiratory effort: normal Respiratory: bilateral: diminished, rhonchi, negative: rales, wheezing - Cardiovascular Rhythm: regular Heart Sounds: Present: S1 & S2 - Extremities Extremities: no ischemia, pulses intact, pulses symmetrical Peripheral Pulses: within normal limits - Abdominal General gastrointestinal: soft, non-tender, non-distended, normal bowel sounds - Integumentary Integumentary: Present: clear, warm - Psychiatric Psychiatric: appropriate mood/affect, cooperative - Neurologic Neurologic: CNII-XII intact, moves all extremities Results - Labs CBC & Chem 7: 01/28/17 05:15 01/31/17 06:07 Labs: Laboratory Last Values WBC 9.1 K/mm3 (4.5-11.0) 01/28/17 05:15 RBC 3.11 M/mm3 (3.65-5.03) L 01/28/17 05:15 Hgb 9.6 gm/dl (11.8-15.2) L 01/28/17 05:15 Hct 28.3 % (35.5-45.6) L 01/28/17 05:15 MCV 91 fl (84-94) 01/28/17 05:15 MCH 31 pg (28-32) 01/28/17 05:15 MCHC 34 % (32-34) 01/28/17 05:15 RDW 12.7 % (13.2-15.2) L 01/28/17 05:15 Plt Count 176 K/mm3 (140-440) 01/28/17 05:15 Lymph % (Auto) 10.1 % (13.4-35.0) L 01/27/17 04:51 [place] % (Auto) 10.4 % (0.0-7.3) H 01/27/17 04:51 Eos % (Auto) 0.0 % (0.0-4.3) 01/27/17 04:51 Baso % (Auto) 0.2 % (0.0-1.8) 01/27/17 04:51 Lymph # 0.9 K/mm3 (1.2-5.4) L 01/27/17 04:51 [place] # 0.9 K/mm3 (0.0-0.8) H 01/27/17 04:51 Eos # 0.0 K/mm3 (0.0-0.4) 01/27/17 04:51 Baso # 0.0 K/mm3 (0.0-0.1) 01/27/17 04:51 Add Manual Diff Complete 01/28/17 05:15 Total Counted 100 01/28/17 05:15 Seg Neutrophils % 79.3 % (40.0-70.0) H 01/27/17 04:51 Seg Neuts % (Manual) 73.0 % (40.0-70.0) H 01/28/17 05:15 Band Neutrophils % 10.0 % 01/28/17 05:15 Lymphocytes % (Manual) 9.0 % (13.4-35.0) L 01/28/17 05:15 Reactive Lymphs % (Man) 0 % 01/28/17 05:15 Monocytes % (Manual) 8.0 % (0.0-7.3) H 01/28/17 05:15 Eosinophils % (Manual) 0 % (0.0-4.3) 01/28/17 05:15 Basophils % (Manual) 0 % (0.0-1.8) 01/28/17 05:15 Metamyelocytes % 0 % 01/28/17 05:15 Myelocytes % 0 % 01/28/17 05:15 Promyelocytes % 0 % 01/28/17 05:15 Blast Cells % 0 % 01/28/17 05:15 Nucleated RBC % Not Reportable 01/28/17 05:15 Seg Neutrophils # 7.0 K/mm3 (1.8-7.7) 01/27/17 04:51 Seg Neutrophils # Man 6.6 K/mm3 (1.8-7.7) 01/28/17 05:15 Band Neutrophils # 0.9 K/mm3 01/28/17 05:15 Lymphocytes # (Manual) 0.8 K/mm3 (1.2-5.4) L 01/28/17 05:15 Abs React Lymphs (Man) 0.0 K/mm3 01/28/17 05:15 Monocytes # (Manual) 0.7 K/mm3 (0.0-0.8) 01/28/17 05:15 Eosinophils # (Manual) 0.0 K/mm3 (0.0-0.4) 01/28/17 05:15 Basophils # (Manual) 0.0 K/mm3 (0.0-0.1) 01/28/17 05:15 Metamyelocytes # 0.0 K/mm3 01/28/17 05:15 Myelocytes # 0.0 K/mm3 01/28/17 05:15 Promyelocytes # 0.0 K/mm3 01/28/17 05:15 Blast Cells # 0.0 K/mm3 01/28/17 05:15 WBC Morphology Not Reportable 01/28/17 05:15 Hypersegmented Neuts Not Reportable 01/28/17 05:15 Hyposegmented Neuts Not Reportable 01/28/17 05:15 Hypogranular Neuts Not Reportable 01/28/17 05:15 Smudge Cells Not Reportable 01/28/17 05:15 Toxic Granulation Not Reportable 01/28/17 05:15 Toxic Vacuolation Not Reportable 01/28/17 05:15 Dohle Bodies Not Reportable 01/28/17 05:15 Pelger-Huet Anomaly Not Reportable 01/28/17 05:15 Richard Rods Not Reportable 01/28/17 05:15 Platelet Estimate Consistent w auto 01/28/17 05:15 Clumped Platelets Not Reportable 01/28/17 05:15 Plt Clumps, EDTA Not Reportable 01/28/17 05:15 Large Platelets Not Reportable 01/28/17 05:15 Giant Platelets Not Reportable 01/28/17 05:15 Platelet Satelliting Not Reportable 01/28/17 05:15 Plt Morphology Comment Not Reportable 01/28/17 05:15 RBC Morphology Not Reportable 01/28/17 05:15 Dimorphic RBCs Not Reportable 01/28/17 05:15 Polychromasia Not Reportable 01/28/17 05:15 Hypochromasia 1+ 01/28/17 05:15 Poikilocytosis Not Reportable 01/28/17 05:15 Anisocytosis 1+ 01/28/17 05:15 Microcytosis Not Reportable 01/28/17 05:15 Macrocytosis Not Reportable 01/28/17 05:15 Spherocytes Not Reportable 01/28/17 05:15 Pappenheimer Bodies Not Reportable 01/28/17 05:15 Sickle Cells Not Reportable 01/28/17 05:15 Target Cells Not Reportable 01/28/17 05:15 Tear Drop Cells Not Reportable 01/28/17 05:15 Ovalocytes Not Reportable 01/28/17 05:15 Helmet Cells Not Reportable 01/28/17 05:15 [place] Bodies Not Reportable 01/28/17 05:15 [place] Rings Not Reportable 01/28/17 05:15 [place] Cells Not Reportable 01/28/17 05:15 Bite Cells Not Reportable 01/28/17 05:15 Crenated Cell Not Reportable 01/28/17 05:15 Elliptocytes Not Reportable 01/28/17 05:15 Acanthocytes (Spur) Not Reportable 01/28/17 05:15 Rouleaux Not Reportable 01/28/17 05:15 Hemoglobin C Crystals Not Reportable 01/28/17 05:15 Schistocytes Not Reportable 01/28/17 05:15 Malaria parasites Not Reportable 01/28/17 05:15 Kevin Bodies Not Reportable 01/28/17 05:15 Hem Pathologist Commnt No 01/28/17 05:15 POC ABG pH 7.435 (7.35-7.45) 01/29/17 04:52 POC ABG pCO2 27.9 (35-45) L 01/29/17 04:52 POC ABG pO2 98 (80-105) 01/29/17 04:52 POC ABG HCO3 18.7 01/29/17 04:52 POC ABG Total CO2 20 01/29/17 04:52 POC ABG O2 Sat 98 01/29/17 04:52 POC ABG Base Excess -6 01/29/17 04:52 VBG pH 7.210 (7.320-7.420) L 01/26/17 12:23 FiO2 50 % 01/29/17 04:52 Sodium 134 mmol/L (137-145) L 01/31/17 06:07 Potassium 3.5 mmol/L (3.6-5.0) L 01/31/17 06:07 Chloride 94.7 mmol/L (98-107) L 01/31/17 06:07 Carbon Dioxide 26 mmol/L (22-30) D 01/31/17 06:07 Anion Gap 17 mmol/L 01/31/17 06:07 BUN 11 mg/dL (9-20) 01/31/17 06:07 Creatinine 0.9 mg/dL (0.8-1.5) 01/31/17 06:07 Estimated GFR > 60 ml/min 01/31/17 06:07 BUN/Creatinine Ratio 12.22 % 01/31/17 06:07 Glucose 177 mg/dL (75-100) H 01/31/17 06:07 POC Glucose 214 (70-105) H 01/30/17 20:32 Hemoglobin A1c 16.1 % (4-6) H 01/27/17 08:29 Lactic Acid 1.0 mmol/L (0.7-2.0) 01/28/17 13:39 Calcium 7.6 mg/dL (8.4-10.2) L 01/31/17 06:07 Phosphorus 3.3 mg/dL (2.5-4.5) 01/31/17 06:07 Magnesium 1.8 mg/dL (1.7-2.3) 01/31/17 06:07 Total Bilirubin 0.7 mg/dL (0.1-1.2) 01/31/17 06:07 AST 22 units/L (5-40) 01/31/17 06:07 ALT 9 units/L (7-56) 01/31/17 06:07 Alkaline Phosphatase 177 units/L (35-129) H 01/31/17 06:07 Total Creatine Kinase 29 units/L (55-170) L 01/26/17 12:25 CK-MB (CK-2) 1.3 ng/mL (0.0-4.0) 01/26/17 12:25 CK-MB (CK-2) Rel Index 4.4 (0-4) H 01/26/17 12:25 Troponin T < 0.010 ng/mL (0.00-0.029) 01/26/17 12:25 C-Reactive Protein 35.80 mg/dL (0.00-1.30) H 01/28/17 13:35 Total Protein 6.0 g/dL (6.3-8.2) L 01/31/17 06:07 Albumin 2.0 g/dL (3.9-5) L 01/31/17 06:07 Albumin/Globulin Ratio 0.5 % 01/31/17 06:07 Urine Color Straw (Yellow) 01/26/17 14:26 Urine Turbidity Clear (Clear) 01/26/17 14:26 Urine pH 5.0 (5.0-7.0) 01/26/17 14:26 Ur Specific [place] 1.021 (1.003-1.030) 01/26/17 14:26 Urine Protein 30 mg/dl mg/dL (Negative) 01/26/17 14:26 Urine Glucose (UA) >=500 mg/dL (Negative) 01/26/17 14:26 Urine Ketones 80 mg/dL (Negative) 01/26/17 14:26 Urine Blood Sm (Negative) 01/26/17 14:26 Urine Nitrite Neg (Negative) 01/26/17 14:26 Urine Bilirubin Neg (Negative) 01/26/17 14:26 Urine Urobilinogen < 2.0 mg/dL (<2.0) 01/26/17 14:26 Ur Leukocyte Esterase Neg (Negative) 01/26/17 14:26 Urine WBC (Auto) 2.0 /HPF (0.0-6.0) 01/26/17 14:26 Urine RBC (Auto) 4.0 /HPF (0.0-6.0) 01/26/17 14:26 Urine Bacteria (Auto) 1+ /HPF (Negative) 01/26/17 14:26 Urine Mucus Few /HPF 01/26/17 14:26 Ketones mmol/L (-0.28) 01/26/17 12:23
--- NOTE | 2017-01-31 15:05 | Cat Scan Report ---
FINAL REPORT EXAM: CT CHEST W CON HISTORY: persistant ross airspace dis/infiltrate TECHNIQUE: CT examination of the chest after IV contrast PRIORS: None. FINDINGS: Normal cardiac size without pericardial effusion. Intact normal caliber aorta. Normal-appearing esophagus. No evidence of hilar mass or mediastinal adenopathy. The visualized pulmonary arteries are diffusely patent bilaterally. No evidence of pneumothorax. Very small left and small right pleural effusions layer posteriorly. Minimal compressive atelectasis in the adjacent right lower lobe posterior inferior aspect. Nonspecific patchy airspace opacities with consolidation are scattered in both upper lobes, lingula, right middle lobe, and most pronounced in both lower lobes. These are associated with multifocal air bronchograms. No definite focal identified mass. IMPRESSION: Very small left and small right pleural effusions with minimal right lower lobe atelectasis Extensive bilateral multifocal pulmonary infiltrates may reflect multifocal pneumonia and/or edema. Superimposed hemorrhage cannot be excluded. Occasionally, bronchoalveolar carcinoma can present similarly
[2017-01-31] MEDS: TYLENOL PO PRN (15:37)
[2017-01-31] MEDS: LEVAQUIN PO SCH (16:23)
[2017-02-01] MEDS: DUONEB 0.5 MG-3 MG/3 ML SOLN IH SCH ×4 (01:00→20:41)
[2017-02-01] MEDS: DILAUDID IV PRN ×4 (01:24→22:40)
[2017-02-01 07:33] LABS: Basophils % (Auto) 0.1 % (0.0-1.8); Eosinophils % (Auto) 0.8 % (0.0-4.3); Hematocrit 27.5 % (35.5-45.6); Hemoglobin 9.4 gm/dl (11.8-15.2); Mean Corpuscular HGB Conc 34 % (32-34); Mean Corpuscular Hemoglobin 31 pg (28-32); Mean Corpuscular Volume 92 fl (84-94); Platelet Count 338 K/mm3 (140-440); Red Cell Distribution Width 13.1 % (13.2-15.2)
[2017-02-01 08:01] LABS: Anion Gap 18 mmol/L; BUN/Creatinine Ratio 13.33; Blood Urea Nitrogen 12 mg/dL (9-20); Calcium 7.7 mg/dL (8.4-10.2); Carbon Dioxide 26 mmol/L (22-30); Chloride 95.1 mmol/L (98-107); Glucose 127 mg/dL (75-100); Magnesium 1.9 mg/dL (1.7-2.3); Potassium 3.2 mmol/L (3.6-5.0); Sodium 136 mmol/L (137-145)
[2017-02-01] MEDS ORDERED: K-DUR PO ONE (08:26)
--- NOTE | 2017-02-01 09:04 | Progress Note ---
Assessment and Plan Assessment and plan: --Bilateral pneumonia CT scan revealed Extensive bilateral multifocal pulmonary infiltrates superimposed hemorrhage cannot be excluded, occasionally bronchoalveolar carcinoma can present similarly Continue IV antibiotics Follow blood cultures, sputum cultures Pulmonary following, possible bronchoscopy as needed --Diabetic ketoacidosis, resolved --Type 2 diabetes mellitus Moderate control, Accu-Chek sliding scale coverage and ADA diet and insulin --Acute hypoxic hypercapnic respiratory failure/bilateral pneumonia Oxygen, titrated to O2 sats more than 90% Nebulizers, pulmonary following --Hypokalemia Replenish per protocol monitor levels --Acute renal failure, resolved --Moderate protein calorie malnutrition Supportive care nutrition supplements --consults and recommendations noted and appreciated --DVT prophylaxis with Lovenox Plan of care discussed with the patient as well as his nurse History Interval history: Patient Seen and evaluated medical records reviewed Complaints of shortness of breath and cough Denies chest pain or palpitations Alert awake oriented 3 not in acute distress looks ill, Hospitalist Physical - Constitutional Vitals: Temp Pulse Resp BP Pulse Ox 98.2 F 86 18 140/79 96 02/01/17 06:54 02/01/17 07:53 02/01/17 07:53 02/01/17 06:54 02/01/17 06:54 General appearance: Present: no acute distress, cachectic, other (ill looking) - EENT Eyes: Present: PERRL, EOM intact - Neck Neck: Present: supple, normal ROM - Respiratory Respiratory effort: normal Respiratory: bilateral: diminished, rhonchi, negative: wheezing - Cardiovascular Rhythm: regular Heart Sounds: Present: S1 & S2 - Extremities Extremities: no ischemia, pulses intact, pulses symmetrical Peripheral Pulses: within normal limits - Abdominal General gastrointestinal: soft, non-tender, non-distended, normal bowel sounds - Integumentary Integumentary: Present: clear, warm - Psychiatric Psychiatric: appropriate mood/affect, cooperative - Neurologic Neurologic: CNII-XII intact, moves all extremities Results - Labs CBC & Chem 7: 02/01/17 06:52 02/01/17 06:52 Labs: Laboratory Last Values WBC 10.0 K/mm3 (4.5-11.0) 02/01/17 06:52 RBC 3.00 M/mm3 (3.65-5.03) L 02/01/17 06:52 Hgb 9.4 gm/dl (11.8-15.2) L 02/01/17 06:52 Hct 27.5 % (35.5-45.6) L 02/01/17 06:52 MCV 92 fl (84-94) 02/01/17 06:52 MCH 31 pg (28-32) 02/01/17 06:52 MCHC 34 % (32-34) 02/01/17 06:52 RDW 13.1 % (13.2-15.2) L 02/01/17 06:52 Plt Count 338 K/mm3 (140-440) 02/01/17 06:52 Lymph % (Auto) 8.8 % (13.4-35.0) L 02/01/17 06:52 [place] % (Auto) 10.0 % (0.0-7.3) H 02/01/17 06:52 Eos % (Auto) 0.8 % (0.0-4.3) 02/01/17 06:52 Baso % (Auto) 0.1 % (0.0-1.8) 02/01/17 06:52 Lymph # 0.9 K/mm3 (1.2-5.4) L 02/01/17 06:52 [place] # 1.0 K/mm3 (0.0-0.8) H 02/01/17 06:52 Eos # 0.1 K/mm3 (0.0-0.4) 02/01/17 06:52 Baso # 0.0 K/mm3 (0.0-0.1) 02/01/17 06:52 Add Manual Diff Complete 01/28/17 05:15 Total Counted 100 01/28/17 05:15 Seg Neutrophils % 80.3 % (40.0-70.0) H 02/01/17 06:52 Seg Neuts % (Manual) 73.0 % (40.0-70.0) H 01/28/17 05:15 Band Neutrophils % 10.0 % 01/28/17 05:15 Lymphocytes % (Manual) 9.0 % (13.4-35.0) L 01/28/17 05:15 Reactive Lymphs % (Man) 0 % 01/28/17 05:15 Monocytes % (Manual) 8.0 % (0.0-7.3) H 01/28/17 05:15 Eosinophils % (Manual) 0 % (0.0-4.3) 01/28/17 05:15 Basophils % (Manual) 0 % (0.0-1.8) 01/28/17 05:15 Metamyelocytes % 0 % 01/28/17 05:15 Myelocytes % 0 % 01/28/17 05:15 Promyelocytes % 0 % 01/28/17 05:15 Blast Cells % 0 % 01/28/17 05:15 Nucleated RBC % Not Reportable 01/28/17 05:15 Seg Neutrophils # 8.0 K/mm3 (1.8-7.7) H 02/01/17 06:52 Seg Neutrophils # Man 6.6 K/mm3 (1.8-7.7) 01/28/17 05:15 Band Neutrophils # 0.9 K/mm3 01/28/17 05:15 Lymphocytes # (Manual) 0.8 K/mm3 (1.2-5.4) L 01/28/17 05:15 Abs React Lymphs (Man) 0.0 K/mm3 01/28/17 05:15 Monocytes # (Manual) 0.7 K/mm3 (0.0-0.8) 01/28/17 05:15 Eosinophils # (Manual) 0.0 K/mm3 (0.0-0.4) 01/28/17 05:15 Basophils # (Manual) 0.0 K/mm3 (0.0-0.1) 01/28/17 05:15 Metamyelocytes # 0.0 K/mm3 01/28/17 05:15 Myelocytes # 0.0 K/mm3 01/28/17 05:15 Promyelocytes # 0.0 K/mm3 01/28/17 05:15 Blast Cells # 0.0 K/mm3 01/28/17 05:15 WBC Morphology Not Reportable 01/28/17 05:15 Hypersegmented Neuts Not Reportable 01/28/17 05:15 Hyposegmented Neuts Not Reportable 01/28/17 05:15 Hypogranular Neuts Not Reportable 01/28/17 05:15 Smudge Cells Not Reportable 01/28/17 05:15 Toxic Granulation Not Reportable 01/28/17 05:15 Toxic Vacuolation Not Reportable 01/28/17 05:15 Dohle Bodies Not Reportable 01/28/17 05:15 Pelger-Huet Anomaly Not Reportable 01/28/17 05:15 Richard Rods Not Reportable 01/28/17 05:15 Platelet Estimate Consistent w auto 01/28/17 05:15 Clumped Platelets Not Reportable 01/28/17 05:15 Plt Clumps, EDTA Not Reportable 01/28/17 05:15 Large Platelets Not Reportable 01/28/17 05:15 Giant Platelets Not Reportable 01/28/17 05:15 Platelet Satelliting Not Reportable 01/28/17 05:15 Plt Morphology Comment Not Reportable 01/28/17 05:15 RBC Morphology Not Reportable 01/28/17 05:15 Dimorphic RBCs Not Reportable 01/28/17 05:15 Polychromasia Not Reportable 01/28/17 05:15 Hypochromasia 1+ 01/28/17 05:15 Poikilocytosis Not Reportable 01/28/17 05:15 Anisocytosis 1+ 01/28/17 05:15 Microcytosis Not Reportable 01/28/17 05:15 Macrocytosis Not Reportable 01/28/17 05:15 Spherocytes Not Reportable 01/28/17 05:15 Pappenheimer Bodies Not Reportable 01/28/17 05:15 Sickle Cells Not Reportable 01/28/17 05:15 Target Cells Not Reportable 01/28/17 05:15 Tear Drop Cells Not Reportable 01/28/17 05:15 Ovalocytes Not Reportable 01/28/17 05:15 Helmet Cells Not Reportable 01/28/17 05:15 Esquivel-[place] Bodies Not Reportable 01/28/17 05:15 [place] Rings Not Reportable 01/28/17 05:15 [place] Cells Not Reportable 01/28/17 05:15 Bite Cells Not Reportable 01/28/17 05:15 Crenated Cell Not Reportable 01/28/17 05:15 Elliptocytes Not Reportable 01/28/17 05:15 Acanthocytes (Spur) Not Reportable 01/28/17 05:15 Rouleaux Not Reportable 01/28/17 05:15 Hemoglobin C Crystals Not Reportable 01/28/17 05:15 Schistocytes Not Reportable 01/28/17 05:15 Malaria parasites Not Reportable 01/28/17 05:15 Kevin Bodies Not Reportable 01/28/17 05:15 Hem Pathologist Commnt No 01/28/17 05:15 POC ABG pH 7.435 (7.35-7.45) 01/29/17 04:52 POC ABG pCO2 27.9 (35-45) L 01/29/17 04:52 POC ABG pO2 98 (80-105) 01/29/17 04:52 POC ABG HCO3 18.7 01/29/17 04:52 POC ABG Total CO2 20 01/29/17 04:52 POC ABG O2 Sat 98 01/29/17 04:52 POC ABG Base Excess -6 01/29/17 04:52 VBG pH 7.210 (7.320-7.420) L 01/26/17 12:23 FiO2 50 % 01/29/17 04:52 Sodium 136 mmol/L (137-145) L 02/01/17 06:52 Potassium 3.2 mmol/L (3.6-5.0) L 02/01/17 06:52 Chloride 95.1 mmol/L (98-107) L 02/01/17 06:52 Carbon Dioxide 26 mmol/L (22-30) 02/01/17 06:52 Anion Gap 18 mmol/L 02/01/17 06:52 BUN 12 mg/dL (9-20) 02/01/17 06:52 Creatinine 0.9 mg/dL (0.8-1.5) 02/01/17 06:52 Estimated GFR > 60 ml/min 02/01/17 06:52 BUN/Creatinine Ratio 13.33 % 02/01/17 06:52 Glucose 127 mg/dL (75-100) H 02/01/17 06:52 POC Glucose 116 (70-105) H 01/31/17 20:02 Hemoglobin A1c 16.1 % (4-6) H 01/27/17 08:29 Lactic Acid 1.0 mmol/L (0.7-2.0) 01/28/17 13:39 Calcium 7.7 mg/dL (8.4-10.2) L 02/01/17 06:52 Phosphorus 3.3 mg/dL (2.5-4.5) 01/31/17 06:07 Magnesium 1.9 mg/dL (1.7-2.3) 02/01/17 06:52 Total Bilirubin 0.7 mg/dL (0.1-1.2) 01/31/17 06:07 AST 22 units/L (5-40) 01/31/17 06:07 ALT 9 units/L (7-56) 01/31/17 06:07 Alkaline Phosphatase 177 units/L (35-129) H 01/31/17 06:07 Total Creatine Kinase 29 units/L (55-170) L 01/26/17 12:25 CK-MB (CK-2) 1.3 ng/mL (0.0-4.0) 01/26/17 12:25 CK-MB (CK-2) Rel Index 4.4 (0-4) H 01/26/17 12:25 Troponin T < 0.010 ng/mL (0.00-0.029) 01/26/17 12:25 C-Reactive Protein 35.80 mg/dL (0.00-1.30) H 01/28/17 13:35 Total Protein 6.0 g/dL (6.3-8.2) L 01/31/17 06:07 Albumin 2.0 g/dL (3.9-5) L 01/31/17 06:07 Albumin/Globulin Ratio 0.5 % 01/31/17 06:07 Urine Color Straw (Yellow) 01/26/17 14:26 Urine Turbidity Clear (Clear) 01/26/17 14:26 Urine pH 5.0 (5.0-7.0) 01/26/17 14:26 Ur Specific [place] 1.021 (1.003-1.030) 01/26/17 14:26 Urine Protein 30 mg/dl mg/dL (Negative) 01/26/17 14:26 Urine Glucose (UA) >=500 mg/dL (Negative) 01/26/17 14:26 Urine Ketones 80 mg/dL (Negative) 01/26/17 14:26 Urine Blood Sm (Negative) 01/26/17 14:26 Urine Nitrite Neg (Negative) 01/26/17 14:26 Urine Bilirubin Neg (Negative) 01/26/17 14:26 Urine Urobilinogen < 2.0 mg/dL (<2.0) 01/26/17 14:26 Ur Leukocyte Esterase Neg (Negative) 01/26/17 14:26 Urine WBC (Auto) 2.0 /HPF (0.0-6.0) 01/26/17 14:26 Urine RBC (Auto) 4.0 /HPF (0.0-6.0) 01/26/17 14:26 Urine Bacteria (Auto) 1+ /HPF (Negative) 01/26/17 14:26 Urine Mucus Few /HPF 01/26/17 14:26 Ketones mmol/L (-0.28) 01/26/17 12:23
[2017-02-01] MEDS: LOVENOX SUB-Q SCH (10:46)
[2017-02-01] MEDS: PEPCID PO SCH (10:46)
[2017-02-01] MEDS: LEVAQUIN PO SCH (10:48)
[2017-02-01] MEDS: ROBITUSSIN DM PO PRN ×4 (10:55→22:26)
--- NOTE | 2017-02-01 13:30 | Progress Note ---
Assessment and Plan - Patient Problems (1) Aspiration pneumonia Current Visit: Yes Status: Acute Qualifiers: Aspiration pneumonia type: A Laterality: L Lung location: L Plan to address problem: - CT chest qith bilateral infiltrates (suspect pulmonary edema element) - trial of diuresis - resend sputum C&S - prn BIPAP - continue to wean oxygen for sats > 92% - get ABG - has completed 5 days of AB's and will follow off - repeat CRP level to trend - lactate level (2) Acute hypoxemic respiratory failure Current Visit: Yes Status: Acute Plan to address problem: - as above (3) DKA (diabetic ketoacidoses) Current Visit: Yes Status: Acute Qualifiers: Diabetes mellitus type: D Diabetes mellitus complication detail: D Plan to address problem: - resolved - continue SSI - introduced home meds (4) Discharge planning issues Current Visit: Yes Status: Acute Plan to address problem: - continue to monitor on telemetry Subjective Date of service: 02/01/17 Principal diagnosis: Acute Hypoxemic Respiratory Failure; DKA Interval history: Seen and examined at bedside; 24 hour events reviewed; nursing and respiratory care staff consulted; no adverse overnight events reported to me; remains hypoxemic; CXR picture actually worse but clinically the same; denies any gross or streaky hemoptysis Objective Vital Signs - 12hr 02/01/17 02/01/17 02/01/17 06:54 07:53 08:00 Temperature 98.2 F 98.6 F Pulse Rate [ 86 Anterior Bilateral Throughout] Pulse Rate [ 77 99 H Left Radial] Respiratory 18 20 Rate Respiratory 18 Rate [Anterior Bilateral Throughout] Blood Pressure 140/79 128/57 [Right Arm] O2 Sat by Pulse 96 93 Oximetry 02/01/17 02/01/17 02/01/17 08:08 09:29 10:55 Temperature Pulse Rate [ 88 Anterior Bilateral Throughout] Pulse Rate [ Left Radial] Respiratory 22 Rate Respiratory 18 Rate [Anterior Bilateral Throughout] Blood Pressure [Right Arm] O2 Sat by Pulse 96 Oximetry Constitutional: alert, appears uncomfortable Eyes: non-icteric ENT: oropharynx moist Neck: supple, no lymphadenopathy Effort: mildly labored Ascultation: Bilateral: rales Cardiovascular: regular rate and rhythm Gastrointestinal: normoactive bowel sounds, soft, non-tender, non-distended Integumentary: normal Extremities: no cyanosis, no edema, pulses normal, no ischemia or petechiae Neurologic: normal mental status, non-focal exam, pupils equal and round, motor strength normal and Psychiatric: mood appropriate, affect normal CBC and BMP: 02/02/17 05:22 02/02/17 05:22 ABG, PT/INR, D-dimer: ABG POC ABG pH 7.435 (7.35-7.45) 01/29/17 04:52 POC ABG pCO2 27.9 (35-45) L 01/29/17 04:52 POC ABG pO2 98 (80-105) 01/29/17 04:52 POC ABG HCO3 18.7 01/29/17 04:52 POC ABG Total CO2 20 01/29/17 04:52 POC ABG O2 Sat 98 01/29/17 04:52 Abnormal lab findings: Abnormal Labs 01/26/17 01/26/17 01/26/17 20:52 20:52 21:29 RBC Hgb Hct RDW Lymph % (Auto) [place] % (Auto) Lymph # Kerr # Seg Neutrophils % Seg Neuts % (Manual) Lymphocytes % (Manual) Monocytes % (Manual) Seg Neutrophils # Lymphocytes # (Manual) POC ABG pH POC ABG pCO2 POC ABG pO2 Sodium 135 L Potassium Chloride Carbon Dioxide 18 L BUN 34 H Glucose 198 H POC Glucose 248 H Hemoglobin A1c Calcium 7.9 L Phosphorus 1.8 L D ALT Alkaline Phosphatase C-Reactive Protein Total Protein Albumin 01/26/17 01/26/17 01/27/17 23:09 23:19 00:22 RBC Hgb Hct RDW Lymph % (Auto) [place] % (Auto) Lymph # [place] # Seg Neutrophils % Seg Neuts % (Manual) Lymphocytes % (Manual) Monocytes % (Manual) Seg Neutrophils # Lymphocytes # (Manual) POC ABG pH POC ABG pCO2 POC ABG pO2 Sodium Potassium Chloride Carbon Dioxide 14 L BUN 34 H Glucose 301 H POC Glucose 384 H 339 H Hemoglobin A1c Calcium 7.7 L Phosphorus ALT Alkaline Phosphatase C-Reactive Protein Total Protein Albumin 01/27/17 01/27/17 01/27/17 00:55 01:22 02:39 RBC Hgb Hct RDW Lymph % (Auto) [place] % (Auto) Lymph # [place] # Seg Neutrophils % Seg Neuts % (Manual) Lymphocytes % (Manual) Monocytes % (Manual) Seg Neutrophils # Lymphocytes # (Manual) POC ABG pH POC ABG pCO2 POC ABG pO2 Sodium Potassium Chloride Carbon Dioxide 14 L BUN 33 H Glucose 330 H POC Glucose 301 H 261 H Hemoglobin A1c Calcium 7.5 L Phosphorus ALT Alkaline Phosphatase C-Reactive Protein Total Protein Albumin 01/27/17 01/27/17 01/27/17 03:47 04:32 04:51 RBC 3.49 L Hgb 10.8 L Hct 31.8 L RDW 12.7 L Lymph % (Auto) 10.1 L [place] % (Auto) 10.4 H Lymph # 0.9 L [place] # 0.9 H Seg Neutrophils % 79.3 H Seg Neuts % (Manual) Lymphocytes % (Manual) Monocytes % (Manual) Seg Neutrophils # Lymphocytes # (Manual) POC ABG pH POC ABG pCO2 POC ABG pO2 Sodium Potassium Chloride Carbon Dioxide BUN Glucose POC Glucose 223 H 165 H Hemoglobin A1c Calcium Phosphorus ALT Alkaline Phosphatase C-Reactive Protein Total Protein Albumin 01/27/17 01/27/17 01/27/17 04:51 06:36 07:40 RBC Hgb Hct RDW Lymph % (Auto) [place] % (Auto) Lymph # [place] # Seg Neutrophils % Seg Neuts % (Manual) Lymphocytes % (Manual) Monocytes % (Manual) Seg Neutrophils # Lymphocytes # (Manual) POC ABG pH POC ABG pCO2 POC ABG pO2 Sodium Potassium Chloride 108.0 H Carbon Dioxide 19 L BUN 31 H Glucose 149 H POC Glucose 126 H 152 H Hemoglobin A1c Calcium 8.1 L Phosphorus ALT 5 L Alkaline Phosphatase C-Reactive Protein Total Protein 6.0 L Albumin 2.5 L 01/27/17 01/27/17 01/27/17 08:29 08:29 08:53 RBC Hgb Hct RDW Lymph % (Auto) [place] % (Auto) Lymph # [place] # Seg Neutrophils % Seg Neuts % (Manual) Lymphocytes % (Manual) Monocytes % (Manual) Seg Neutrophils # Lymphocytes # (Manual) POC ABG pH POC ABG pCO2 POC ABG pO2 Sodium Potassium Chloride Carbon Dioxide BUN Glucose POC Glucose 180 H Hemoglobin A1c 16.1 H Calcium Phosphorus 1.1 L D ALT Alkaline Phosphatase C-Reactive Protein Total Protein Albumin 01/27/17 01/27/17 01/27/17 09:59 11:48 11:53 RBC Hgb Hct RDW Lymph % (Auto) [place] % (Auto) Lymph # [place] # Seg Neutrophils % Seg Neuts % (Manual) Lymphocytes % (Manual) Monocytes % (Manual) Seg Neutrophils # Lymphocytes # (Manual) POC ABG pH 7.348 L POC ABG pCO2 30.6 L POC ABG pO2 51 L Sodium Potassium Chloride Carbon Dioxide BUN Glucose POC Glucose 197 H 213 H Hemoglobin A1c Calcium Phosphorus ALT Alkaline Phosphatase C-Reactive Protein Total Protein Albumin 01/27/17 01/27/17 01/27/17 13:40 16:08 16:26 RBC Hgb Hct RDW Lymph % (Auto) [place] % (Auto) Lymph # [place] # Seg Neutrophils % Seg Neuts % (Manual) Lymphocytes % (Manual) Monocytes % (Manual) Seg Neutrophils # Lymphocytes # (Manual) POC ABG pH POC ABG pCO2 POC ABG pO2 Sodium 133 L 135 L Potassium 3.5 L 3.4 L Chloride Carbon Dioxide 18 L 19 L BUN 24 H 23 H Glucose 223 H 200 H POC Glucose 196 H Hemoglobin A1c Calcium 7.5 L 7.9 L Phosphorus ALT Alkaline Phosphatase C-Reactive Protein Total Protein Albumin 01/27/17 01/27/17 01/28/17 20:16 21:41 05:15 RBC 3.11 L Hgb 9.6 L Hct 28.3 L RDW 12.7 L Lymph % (Auto) [place] % (Auto) Lymph # [place] # Seg Neutrophils % Seg Neuts % (Manual) 73.0 H Lymphocytes % (Manual) 9.0 L Monocytes % (Manual) 8.0 H Seg Neutrophils # Lymphocytes # (Manual) 0.8 L POC ABG pH POC ABG pCO2 POC ABG pO2 Sodium 135 L Potassium 3.4 L Chloride Carbon Dioxide 18 L BUN 21 H Glucose 246 H POC Glucose 247 H Hemoglobin A1c Calcium 7.4 L Phosphorus ALT Alkaline Phosphatase C-Reactive Protein Total Protein Albumin 01/28/17 01/28/17 01/28/17 08:09 09:43 11:35 RBC Hgb Hct RDW Lymph % (Auto) [place] % (Auto) Lymph # [place] # Seg Neutrophils % Seg Neuts % (Manual) Lymphocytes % (Manual) Monocytes % (Manual) Seg Neutrophils # Lymphocytes # (Manual) POC ABG pH POC ABG pCO2 POC ABG pO2 Sodium 134 L Potassium 3.4 L Chloride Carbon Dioxide 16 L BUN 21 H Glucose 267 H POC Glucose 212 H 278 H Hemoglobin A1c Calcium 7.6 L Phosphorus ALT Alkaline Phosphatase C-Reactive Protein Total Protein Albumin 0301/28/17 01/28/17 13:35 16:06 21:36 RBC Hgb Hct RDW Lymph % (Auto) [place] % (Auto) Lymph # [place] # Seg Neutrophils % Seg Neuts % (Manual) Lymphocytes % (Manual) Monocytes % (Manual) Seg Neutrophils # Lymphocytes # (Manual) POC ABG pH POC ABG pCO2 POC ABG pO2 Sodium Potassium Chloride Carbon Dioxide BUN Glucose POC Glucose 291 H 237 H Hemoglobin A1c Calcium Phosphorus ALT Alkaline Phosphatase C-Reactive Protein 35.80 H Total Protein Albumin 01/29/17 01/29/17 01/29/17 04:52 07:33 07:56 RBC Hgb Hct RDW Lymph % (Auto) [place] % (Auto) Lymph # [place] # Seg Neutrophils % Seg Neuts % (Manual) Lymphocytes % (Manual) Monocytes % (Manual) Seg Neutrophils # Lymphocytes # (Manual) POC ABG pH POC ABG pCO2 27.9 L POC ABG pO2 Sodium 131 L Potassium 3.1 L Chloride 96.9 L Carbon Dioxide 19 L BUN Glucose 256 H POC Glucose 254 H Hemoglobin A1c Calcium 7.6 L Phosphorus 2.1 L D ALT Alkaline Phosphatase C-Reactive Protein Total Protein Albumin 01/29/17 01/29/17 01/29/17 12:20 16:12 18:20 RBC Hgb Hct RDW Lymph % (Auto) [place] % (Auto) Lymph # [place] # Seg Neutrophils % Seg Neuts % (Manual) Lymphocytes % (Manual) Monocytes % (Manual) Seg Neutrophils # Lymphocytes # (Manual) POC ABG pH POC ABG pCO2 POC ABG pO2 Sodium Potassium Chloride Carbon Dioxide BUN Glucose POC Glucose 327 H 357 H 356 H Hemoglobin A1c Calcium Phosphorus ALT Alkaline Phosphatase C-Reactive Protein Total Protein Albumin 01/29/17 01/30/17 01/30/17 21:29 08:30 12:23 RBC Hgb Hct RDW Lymph % (Auto) [place] % (Auto) Lymph # [place] # Seg Neutrophils % Seg Neuts % (Manual) Lymphocytes % (Manual) Monocytes % (Manual) Seg Neutrophils # Lymphocytes # (Manual) POC ABG pH POC ABG pCO2 POC ABG pO2 Sodium Potassium Chloride Carbon Dioxide BUN Glucose POC Glucose 285 H 230 H 245 H Hemoglobin A1c Calcium Phosphorus ALT Alkaline Phosphatase C-Reactive Protein Total Protein Albumin 01/30/17 01/30/17 01/31/17 15:23 20:32 06:07 RBC Hgb Hct RDW Lymph % (Auto) [place] % (Auto) Lymph # [place] # Seg Neutrophils % Seg Neuts % (Manual) Lymphocytes % (Manual) Monocytes % (Manual) Seg Neutrophils # Lymphocytes # (Manual) POC ABG pH POC ABG pCO2 POC ABG pO2 Sodium 134 L Potassium 3.5 L Chloride 94.7 L Carbon Dioxide BUN Glucose 177 H POC Glucose 238 H 214 H Hemoglobin A1c Calcium 7.6 L Phosphorus ALT Alkaline Phosphatase 177 H C-Reactive Protein Total Protein 6.0 L Albumin 2.0 L 01/31/17 01/31/17 01/31/17 08:37 11:49 18:11 RBC Hgb Hct RDW Lymph % (Auto) [place] % (Auto) Lymph # [place] # Seg Neutrophils % Seg Neuts % (Manual) Lymphocytes % (Manual) Monocytes % (Manual) Seg Neutrophils # Lymphocytes # (Manual) POC ABG pH POC ABG pCO2 POC ABG pO2 Sodium Potassium Chloride Carbon Dioxide BUN Glucose POC Glucose 162 H 184 H 162 H Hemoglobin A1c Calcium Phosphorus ALT Alkaline Phosphatase C-Reactive Protein Total Protein Albumin 01/31/17 02/01/17 02/01/17 20:02 06:52 06:52 RBC 3.00 L Hgb 9.4 L Hct 27.5 L RDW 13.1 L Lymph % (Auto) 8.8 L [place] % (Auto) 10.0 H Lymph # 0.9 L Kerr # 1.0 H Seg Neutrophils % 80.3 H Seg Neuts % (Manual) Lymphocytes % (Manual) Monocytes % (Manual) Seg Neutrophils # 8.0 H Lymphocytes # (Manual) POC ABG pH POC ABG pCO2 POC ABG pO2 Sodium 136 L Potassium 3.2 L Chloride 95.1 L Carbon Dioxide BUN Glucose 127 H POC Glucose 116 H Hemoglobin A1c Calcium 7.7 L Phosphorus ALT Alkaline Phosphatase C-Reactive Protein Total Protein Albumin
[2017-02-02] MEDS: DUONEB 0.5 MG-3 MG/3 ML SOLN IH SCH ×4 (01:26→19:52)
[2017-02-02 05:46] LABS: Basophils % (Auto) 0.3 % (0.0-1.8); Eosinophils % (Auto) 0.6 % (0.0-4.3); Hematocrit 28.4 % (35.5-45.6); Hemoglobin 9.8 gm/dl (11.8-15.2); Mean Corpuscular HGB Conc 34 % (32-34); Mean Corpuscular Hemoglobin 31 pg (28-32); Mean Corpuscular Volume 90 fl (84-94); Platelet Count 384 K/mm3 (140-440); Red Blood Count 3.15 M/mm3 (3.65-5.03); White Blood Count 9.3 K/mm3 (4.5-11.0)
[2017-02-02 06:13] LABS: Alanine Aminotransferase 6 units/L (7-56); Albumin 1.8 g/dL (3.9-5); Albumin/Globulin Ratio 0.4 %; Alkaline Phosphatase 154 units/L (35-129); Anion Gap 16 mmol/L; BUN/Creatinine Ratio 14.44; Bilirubin,Total 0.5 mg/dL (0.1-1.2); Blood Urea Nitrogen 13 mg/dL (9-20); Calcium 7.6 mg/dL (8.4-10.2); Carbon Dioxide 28 mmol/L (22-30); Chloride 92.7 mmol/L (98-107); Glucose 276 mg/dL (75-100); Magnesium 1.9 mg/dL (1.7-2.3); Potassium 3.3 mmol/L (3.6-5.0); Sodium 133 mmol/L (137-145)
[2017-02-02 06:17] LABS: Bilirubin,Direct < 0.2 mg/dL (0-0.2); Bilirubin,Indirect 0.3 mg/dL
[2017-02-02] MEDS: PEPCID PO SCH (09:03)
[2017-02-02] MEDS: LOVENOX SUB-Q SCH (09:03)
[2017-02-02] MEDS: K-DUR PO SCH (09:04)
[2017-02-02] MEDS: LEVAQUIN PO SCH (09:21)
[2017-02-02] MEDS: ROBITUSSIN DM PO PRN ×2 (09:25→22:38)
--- NOTE | 2017-02-02 15:29 | Progress Note ---
Assessment and Plan Assessment and plan: --Bilateral pneumonia Worsening cough,CT Extensive bilateral multifocal pulmonary infiltrates superimposed hemorrhage cannot be excluded, Pulmonary evaluation noted and appreciated, Continue IV antibiotics Follow blood cultures, sputum cultures Pulmonary following, possible bronchoscopy as needed --Diabetic ketoacidosis, resolved --Type 2 diabetes mellitus Moderate control, Accu-Chek sliding scale coverage and ADA diet and insulin --Acute hypoxic hypercapnic respiratory failure/bilateral pneumonia Oxygen, titrated to O2 sats more than 90% Nebulizers, pulmonary following --Hypokalemia Replenish per protocol monitor levels --Acute renal failure, resolved --Moderate protein calorie malnutrition Supportive care nutrition supplements --consults and recommendations noted and appreciated --DVT prophylaxis with Lovenox Plan of care discussed with the patient as well as his nurse History Interval history: Patient seen and evaluated medical records reviewed Patient complains of worsening productive cough Denies any chest pain or palpitations That sugars are reasonable control Alert awake oriented 3 not in acute distress Hospitalist Physical - Constitutional Vitals: Temp Pulse Resp BP Pulse Ox 98.7 F 80 18 120/74 97 02/02/17 12:00 02/02/17 14:35 02/02/17 14:35 02/02/17 12:00 02/02/17 12:00 General appearance: Present: no acute distress, cachectic, other (ill looking) - EENT Eyes: Present: PERRL, EOM intact - Neck Neck: Present: supple, normal ROM - Respiratory Respiratory effort: normal Respiratory: bilateral: diminished, rhonchi - Cardiovascular Rhythm: regular Heart Sounds: Present: S1 & S2 - Extremities Extremities: no ischemia, pulses intact, pulses symmetrical Peripheral Pulses: within normal limits - Abdominal General gastrointestinal: soft, non-tender, non-distended, normal bowel sounds - Integumentary Integumentary: Present: clear, warm - Psychiatric Psychiatric: appropriate mood/affect, cooperative - Neurologic Neurologic: CNII-XII intact, moves all extremities Results - Labs CBC & Chem 7: 02/02/17 05:22 02/02/17 05:22 Labs: Laboratory Last Values WBC 9.3 K/mm3 (4.5-11.0) 02/02/17 05:22 RBC 3.15 M/mm3 (3.65-5.03) L 02/02/17 05:22 Hgb 9.8 gm/dl (11.8-15.2) L 02/02/17 05:22 Hct 28.4 % (35.5-45.6) L 02/02/17 05:22 MCV 90 fl (84-94) 02/02/17 05:22 MCH 31 pg (28-32) 02/02/17 05:22 MCHC 34 % (32-34) 02/02/17 05:22 RDW 13.0 % (13.2-15.2) L 02/02/17 05:22 Plt Count 384 K/mm3 (140-440) 02/02/17 05:22 Lymph % (Auto) 8.8 % (13.4-35.0) L 02/02/17 05:22 [place] % (Auto) 8.0 % (0.0-7.3) H 02/02/17 05:22 Eos % (Auto) 0.6 % (0.0-4.3) 02/02/17 05:22 Baso % (Auto) 0.3 % (0.0-1.8) 02/02/17 05:22 Lymph # 0.8 K/mm3 (1.2-5.4) L 02/02/17 05:22 [place] # 0.8 K/mm3 (0.0-0.8) 02/02/17 05:22 Eos # 0.1 K/mm3 (0.0-0.4) 02/02/17 05:22 Baso # 0.0 K/mm3 (0.0-0.1) 02/02/17 05:22 Add Manual Diff Complete 01/28/17 05:15 Total Counted 100 01/28/17 05:15 Seg Neutrophils % 82.3 % (40.0-70.0) H 02/02/17 05:22 Seg Neuts % (Manual) 73.0 % (40.0-70.0) H 01/28/17 05:15 Band Neutrophils % 10.0 % 01/28/17 05:15 Lymphocytes % (Manual) 9.0 % (13.4-35.0) L 01/28/17 05:15 Reactive Lymphs % (Man) 0 % 01/28/17 05:15 Monocytes % (Manual) 8.0 % (0.0-7.3) H 01/28/17 05:15 Eosinophils % (Manual) 0 % (0.0-4.3) 01/28/17 05:15 Basophils % (Manual) 0 % (0.0-1.8) 01/28/17 05:15 Metamyelocytes % 0 % 01/28/17 05:15 Myelocytes % 0 % 01/28/17 05:15 Promyelocytes % 0 % 01/28/17 05:15 Blast Cells % 0 % 01/28/17 05:15 Nucleated RBC % Not Reportable 01/28/17 05:15 Seg Neutrophils # 7.7 K/mm3 (1.8-7.7) 02/02/17 05:22 Seg Neutrophils # Man 6.6 K/mm3 (1.8-7.7) 01/28/17 05:15 Band Neutrophils # 0.9 K/mm3 01/28/17 05:15 Lymphocytes # (Manual) 0.8 K/mm3 (1.2-5.4) L 01/28/17 05:15 Abs React Lymphs (Man) 0.0 K/mm3 01/28/17 05:15 Monocytes # (Manual) 0.7 K/mm3 (0.0-0.8) 01/28/17 05:15 Eosinophils # (Manual) 0.0 K/mm3 (0.0-0.4) 01/28/17 05:15 Basophils # (Manual) 0.0 K/mm3 (0.0-0.1) 01/28/17 05:15 Metamyelocytes # 0.0 K/mm3 01/28/17 05:15 Myelocytes # 0.0 K/mm3 01/28/17 05:15 Promyelocytes # 0.0 K/mm3 01/28/17 05:15 Blast Cells # 0.0 K/mm3 01/28/17 05:15 WBC Morphology Not Reportable 01/28/17 05:15 Hypersegmented Neuts Not Reportable 01/28/17 05:15 Hyposegmented Neuts Not Reportable 01/28/17 05:15 Hypogranular Neuts Not Reportable 01/28/17 05:15 Smudge Cells Not Reportable 01/28/17 05:15 Toxic Granulation Not Reportable 01/28/17 05:15 Toxic Vacuolation Not Reportable 01/28/17 05:15 Dohle Bodies Not Reportable 01/28/17 05:15 Pelger-Huet Anomaly Not Reportable 01/28/17 05:15 Richard Rods Not Reportable 01/28/17 05:15 Platelet Estimate Consistent w auto 01/28/17 05:15 Clumped Platelets Not Reportable 01/28/17 05:15 Plt Clumps, EDTA Not Reportable 01/28/17 05:15 Large Platelets Not Reportable 01/28/17 05:15 Giant Platelets Not Reportable 01/28/17 05:15 Platelet Satelliting Not Reportable 01/28/17 05:15 Plt Morphology Comment Not Reportable 01/28/17 05:15 RBC Morphology Not Reportable 01/28/17 05:15 Dimorphic RBCs Not Reportable 01/28/17 05:15 Polychromasia Not Reportable 01/28/17 05:15 Hypochromasia 1+ 01/28/17 05:15 Poikilocytosis Not Reportable 01/28/17 05:15 Anisocytosis 1+ 01/28/17 05:15 Microcytosis Not Reportable 01/28/17 05:15 Macrocytosis Not Reportable 01/28/17 05:15 Spherocytes Not Reportable 01/28/17 05:15 Pappenheimer Bodies Not Reportable 01/28/17 05:15 Sickle Cells Not Reportable 01/28/17 05:15 Target Cells Not Reportable 01/28/17 05:15 Tear Drop Cells Not Reportable 01/28/17 05:15 Ovalocytes Not Reportable 01/28/17 05:15 Helmet Cells Not Reportable 01/28/17 05:15 [place] Bodies Not Reportable 01/28/17 05:15 [place]win Rings Not Reportable 01/28/17 05:15 [employer] Cells Not Reportable 01/28/17 05:15 Bite Cells Not Reportable 01/28/17 05:15 Crenated Cell Not Reportable 01/28/17 05:15 Elliptocytes Not Reportable 01/28/17 05:15 Acanthocytes (Spur) Not Reportable 01/28/17 05:15 Rouleaux Not Reportable 01/28/17 05:15 Hemoglobin C Crystals Not Reportable 01/28/17 05:15 Schistocytes Not Reportable 01/28/17 05:15 Malaria parasites Not Reportable 01/28/17 05:15 Kevin Bodies Not Reportable 01/28/17 05:15 Hem Pathologist Commnt No 01/28/17 05:15 POC ABG pH 7.435 (7.35-7.45) 01/29/17 04:52 POC ABG pCO2 27.9 (35-45) L 01/29/17 04:52 POC ABG pO2 98 (80-105) 01/29/17 04:52 POC ABG HCO3 18.7 01/29/17 04:52 POC ABG Total CO2 20 01/29/17 04:52 POC ABG O2 Sat 98 01/29/17 04:52 POC ABG Base Excess -6 01/29/17 04:52 VBG pH 7.210 (7.320-7.420) L 01/26/17 12:23 FiO2 50 % 01/29/17 04:52 Sodium 133 mmol/L (137-145) L 02/02/17 05:22 Potassium 3.3 mmol/L (3.6-5.0) L 02/02/17 05:22 Chloride 92.7 mmol/L (98-107) L 02/02/17 05:22 Carbon Dioxide 28 mmol/L (22-30) 02/02/17 05:22 Anion Gap 16 mmol/L 02/02/17 05:22 BUN 13 mg/dL (9-20) 02/02/17 05:22 Creatinine 0.9 mg/dL (0.8-1.5) 02/02/17 05:22 Estimated GFR > 60 ml/min 02/02/17 05:22 BUN/Creatinine Ratio 14.44 % 02/02/17 05:22 Glucose 276 mg/dL (75-100) H 02/02/17 05:22 POC Glucose 191 (70-105) H 02/02/17 12:02 Hemoglobin A1c 16.1 % (4-6) H 01/27/17 08:29 Lactic Acid 1.0 mmol/L (0.7-2.0) 01/28/17 13:39 Calcium 7.6 mg/dL (8.4-10.2) L 02/02/17 05:22 Phosphorus 3.3 mg/dL (2.5-4.5) 01/31/17 06:07 Magnesium 1.9 mg/dL (1.7-2.3) 02/02/17 05:22 Total Bilirubin 0.5 mg/dL (0.1-1.2) 02/02/17 05:22 Direct Bilirubin < 0.2 mg/dL (0-0.2) 02/02/17 05:22 Indirect Bilirubin 0.3 mg/dL 02/02/17 05:22 AST 10 units/L (5-40) 02/02/17 05:22 ALT 6 units/L (7-56) L 02/02/17 05:22 Alkaline Phosphatase 154 units/L (35-129) H 02/02/17 05:22 Total Creatine Kinase 29 units/L (55-170) L 01/26/17 12:25 CK-MB (CK-2) 1.3 ng/mL (0.0-4.0) 01/26/17 12:25 CK-MB (CK-2) Rel Index 4.4 (0-4) H 01/26/17 12:25 Troponin T < 0.010 ng/mL (0.00-0.029) 01/26/17 12:25 C-Reactive Protein 35.80 mg/dL (0.00-1.30) H 01/28/17 13:35 Total Protein 6.0 g/dL (6.3-8.2) L 02/02/17 05:22 Albumin 1.8 g/dL (3.9-5) L 02/02/17 05:22 Albumin/Globulin Ratio 0.4 % 02/02/17 05:22 Urine Color Straw (Yellow) 01/26/17 14:26 Urine Turbidity Clear (Clear) 01/26/17 14:26 Urine pH 5.0 (5.0-7.0) 01/26/17 14:26 Ur Specific [place] 1.021 (1.003-1.030) 01/26/17 14:26 Urine Protein 30 mg/dl mg/dL (Negative) 01/26/17 14:26 Urine Glucose (UA) >=500 mg/dL (Negative) 01/26/17 14:26 Urine Ketones 80 mg/dL (Negative) 01/26/17 14:26 Urine Blood Sm (Negative) 01/26/17 14:26 Urine Nitrite Neg (Negative) 01/26/17 14:26 Urine Bilirubin Neg (Negative) 01/26/17 14:26 Urine Urobilinogen < 2.0 mg/dL (<2.0) 01/26/17 14:26 Ur Leukocyte Esterase Neg (Negative) 01/26/17 14:26 Urine WBC (Auto) 2.0 /HPF (0.0-6.0) 01/26/17 14:26 Urine RBC (Auto) 4.0 /HPF (0.0-6.0) 01/26/17 14:26 Urine Bacteria (Auto) 1+ /HPF (Negative) 01/26/17 14:26 Urine Mucus Few /HPF 01/26/17 14:26 Ketones mmol/L (-0.28) 01/26/17 12:23
--- NOTE | 2017-02-02 18:43 | Progress Note ---
Assessment and Plan Patient alert, awake and resting on nasal canula. No complaint of chest pain or shortness of breath.Patient is on 2.5 litres O2. O2 satuaration 98%. - Patient Problems (1) Bilateral pulmonary infiltrates on chest x-ray Current Visit: Yes Status: Acute Plan to address problem: Patient afebrile, No leukocytosis. Repeat chest xray.. (2) Acute hypoxemic respiratory failure Current Visit: Yes Status: Acute Plan to address problem: Patient is on O2 supplementation 2.5 litres O2. Albuterol/atrovent aerosol treatments q 6 hours. Subjective Date of service: 02/02/17 Principal diagnosis: Acute Hypoxemic Respiratory Failure; DKA Interval history: Patient alert, awake and resting on nasal canula. No complaint of chest pain or shortness of breath.Patient is on 2.5 litres O2. O2 satuaration 98%. Objective Vital Signs - 12hr 02/02/17 02/02/17 02/02/17 07:40 09:41 09:43 Temperature 98.4 F Pulse Rate [ 81 Anterior Bilateral Throughout] Pulse Rate [ 74 Left Radial] Respiratory 18 Rate Respiratory 18 Rate [Anterior Bilateral Throughout] Blood Pressure 119/68 [Right Arm] O2 Sat by Pulse 91 98 Oximetry 02/02/17 02/02/17 02/02/17 09:50 12:00 14:25 Temperature 98.7 F Pulse Rate [ 87 75 Anterior Bilateral Throughout] Pulse Rate [ 74 Left Radial] Respiratory 18 Rate Respiratory 18 18 Rate [Anterior Bilateral Throughout] Blood Pressure 120/74 [Right Arm] O2 Sat by Pulse 97 Oximetry 02/02/17 14:35 Temperature Pulse Rate [ 80 Anterior Bilateral Throughout] Pulse Rate [ Left Radial] Respiratory Rate Respiratory 18 Rate [Anterior Bilateral Throughout] Blood Pressure [Right Arm] O2 Sat by Pulse Oximetry Constitutional: no acute distress, alert Eyes: non-icteric ENT: oropharynx moist Neck: supple, no lymphadenopathy Effort: mildly labored Ascultation: Right: rhonchi, Left: clear, Bilateral: rales Cardiovascular: regular rate and rhythm Gastrointestinal: normoactive bowel sounds, soft, non-tender, non-distended Integumentary: normal Extremities: no cyanosis, no edema, pulses normal, no ischemia or petechiae Neurologic: normal mental status, non-focal exam, pupils equal and round, motor strength normal and Psychiatric: mood appropriate, affect normal CBC and BMP: 02/02/17 05:22 02/02/17 05:22 ABG, PT/INR, D-dimer: ABG POC ABG pH 7.435 (7.35-7.45) 01/29/17 04:52 POC ABG pCO2 27.9 (35-45) L 01/29/17 04:52 POC ABG pO2 98 (80-105) 01/29/17 04:52 POC ABG HCO3 18.7 01/29/17 04:52 POC ABG Total CO2 20 01/29/17 04:52 POC ABG O2 Sat 98 01/29/17 04:52 Abnormal lab findings: Abnormal Labs 01/26/17 01/26/17 01/26/17 20:52 20:52 21:29 RBC Hgb Hct RDW Lymph % (Auto) [place] % (Auto) Lymph # [place] # Seg Neutrophils % Seg Neuts % (Manual) Lymphocytes % (Manual) Monocytes % (Manual) Seg Neutrophils # Lymphocytes # (Manual) POC ABG pH POC ABG pCO2 POC ABG pO2 Sodium 135 L Potassium Chloride Carbon Dioxide 18 L BUN 34 H Glucose 198 H POC Glucose 248 H Hemoglobin A1c Calcium 7.9 L Phosphorus 1.8 L D ALT Alkaline Phosphatase C-Reactive Protein NT-Pro-B Natriuret Pep Total Protein Albumin 01/26/17 01/26/17 01/27/17 23:09 23:19 00:22 RBC Hgb Hct RDW Lymph % (Auto) [place] % (Auto) Lymph # [place] # Seg Neutrophils % Seg Neuts % (Manual) Lymphocytes % (Manual) Monocytes % (Manual) Seg Neutrophils # Lymphocytes # (Manual) POC ABG pH POC ABG pCO2 POC ABG pO2 Sodium Potassium Chloride Carbon Dioxide 14 L BUN 34 H Glucose 301 H POC Glucose 384 H 339 H Hemoglobin A1c Calcium 7.7 L Phosphorus ALT Alkaline Phosphatase C-Reactive Protein NT-Pro-B Natriuret Pep Total Protein Albumin 01/27/17 01/27/17 01/27/17 00:55 01:22 02:39 RBC Hgb Hct RDW Lymph % (Auto) [place] % (Auto) Lymph # [place] # Seg Neutrophils % Seg Neuts % (Manual) Lymphocytes % (Manual) Monocytes % (Manual) Seg Neutrophils # Lymphocytes # (Manual) POC ABG pH POC ABG pCO2 POC ABG pO2 Sodium Potassium Chloride Carbon Dioxide 14 L BUN 33 H Glucose 330 H POC Glucose 301 H 261 H Hemoglobin A1c Calcium 7.5 L Phosphorus ALT Alkaline Phosphatase C-Reactive Protein NT-Pro-B Natriuret Pep Total Protein Albumin 01/27/17 01/27/17 01/27/17 03:47 04:32 04:51 RBC 3.49 L Hgb 10.8 L Hct 31.8 L RDW 12.7 L Lymph % (Auto) 10.1 L [place] % (Auto) 10.4 H Lymph # 0.9 L [place] # 0.9 H Seg Neutrophils % 79.3 H Seg Neuts % (Manual) Lymphocytes % (Manual) Monocytes % (Manual) Seg Neutrophils # Lymphocytes # (Manual) POC ABG pH POC ABG pCO2 POC ABG pO2 Sodium Potassium Chloride Carbon Dioxide BUN Glucose POC Glucose 223 H 165 H Hemoglobin A1c Calcium Phosphorus ALT Alkaline Phosphatase C-Reactive Protein NT-Pro-B Natriuret Pep Total Protein Albumin 01/27/17 01/27/17 01/27/17 04:51 06:36 07:40 RBC Hgb Hct RDW Lymph % (Auto) [place] % (Auto) Lymph # [place] # Seg Neutrophils % Seg Neuts % (Manual) Lymphocytes % (Manual) Monocytes % (Manual) Seg Neutrophils # Lymphocytes # (Manual) POC ABG pH POC ABG pCO2 POC ABG pO2 Sodium Potassium Chloride 108.0 H Carbon Dioxide 19 L BUN 31 H Glucose 149 H POC Glucose 126 H 152 H Hemoglobin A1c Calcium 8.1 L Phosphorus ALT 5 L Alkaline Phosphatase C-Reactive Protein NT-Pro-B Natriuret Pep Total Protein 6.0 L Albumin 2.5 L 01/27/17 01/27/17 01/27/17 08:29 08:29 08:53 RBC Hgb Hct RDW Lymph % (Auto) [place] % (Auto) Lymph # [place] # Seg Neutrophils % Seg Neuts % (Manual) Lymphocytes % (Manual) Monocytes % (Manual) Seg Neutrophils # Lymphocytes # (Manual) POC ABG pH POC ABG pCO2 POC ABG pO2 Sodium Potassium Chloride Carbon Dioxide BUN Glucose POC Glucose 180 H Hemoglobin A1c 16.1 H Calcium Phosphorus 1.1 L D ALT Alkaline Phosphatase C-Reactive Protein NT-Pro-B Natriuret Pep Total Protein Albumin 01/27/17 01/27/17 01/27/17 09:59 11:48 11:53 RBC Hgb Hct RDW Lymph % (Auto) [place] % (Auto) Lymph # [place] # Seg Neutrophils % Seg Neuts % (Manual) Lymphocytes % (Manual) Monocytes % (Manual) Seg Neutrophils # Lymphocytes # (Manual) POC ABG pH 7.348 L POC ABG pCO2 30.6 L POC ABG pO2 51 L Sodium Potassium Chloride Carbon Dioxide BUN Glucose POC Glucose 197 H 213 H Hemoglobin A1c Calcium Phosphorus ALT Alkaline Phosphatase C-Reactive Protein NT-Pro-B Natriuret Pep Total Protein Albumin 01/27/17 01/27/17 01/27/17 13:40 16:08 16:26 RBC Hgb Hct RDW Lymph % (Auto) [place] % (Auto) Lymph # [place] # Seg Neutrophils % Seg Neuts % (Manual) Lymphocytes % (Manual) Monocytes % (Manual) Seg Neutrophils # Lymphocytes # (Manual) POC ABG pH POC ABG pCO2 POC ABG pO2 Sodium 133 L 135 L Potassium 3.5 L 3.4 L Chloride Carbon Dioxide 18 L 19 L BUN 24 H 23 H Glucose 223 H 200 H POC Glucose 196 H Hemoglobin A1c Calcium 7.5 L 7.9 L Phosphorus ALT Alkaline Phosphatase C-Reactive Protein NT-Pro-B Natriuret Pep Total Protein Albumin 01/27/17 01/27/17 01/28/17 20:16 21:41 05:15 RBC 3.11 L Hgb 9.6 L Hct 28.3 L RDW 12.7 L Lymph % (Auto) [place] % (Auto) Lymph # [place] # Seg Neutrophils % Seg Neuts % (Manual) 73.0 H Lymphocytes % (Manual) 9.0 L Monocytes % (Manual) 8.0 H Seg Neutrophils # Lymphocytes # (Manual) 0.8 L POC ABG pH POC ABG pCO2 POC ABG pO2 Sodium 135 L Potassium 3.4 L Chloride Carbon Dioxide 18 L BUN 21 H Glucose 246 H POC Glucose 247 H Hemoglobin A1c Calcium 7.4 L Phosphorus ALT Alkaline Phosphatase C-Reactive Protein NT-Pro-B Natriuret Pep Total Protein Albumin 01/28/17 01/28/17 01/28/17 08:09 09:43 11:35 RBC Hgb Hct RDW Lymph % (Auto) [place] % (Auto) Lymph # [place] # Seg Neutrophils % Seg Neuts % (Manual) Lymphocytes % (Manual) Monocytes % (Manual) Seg Neutrophils # Lymphocytes # (Manual) POC ABG pH POC ABG pCO2 POC ABG pO2 Sodium 134 L Potassium 3.4 L Chloride Carbon Dioxide 16 L BUN 21 H Glucose 267 H POC Glucose 212 H 278 H Hemoglobin A1c Calcium 7.6 L Phosphorus ALT Alkaline Phosphatase C-Reactive Protein NT-Pro-B Natriuret Pep Total Protein Albumin 01/28/17 01/28/17 01/28/17 13:35 16:06 21:36 RBC Hgb Hct RDW Lymph % (Auto) [place] % (Auto) Lymph # [place] # Seg Neutrophils % Seg Neuts % (Manual) Lymphocytes % (Manual) Monocytes % (Manual) Seg Neutrophils # Lymphocytes # (Manual) POC ABG pH POC ABG pCO2 POC ABG pO2 Sodium Potassium Chloride Carbon Dioxide BUN Glucose POC Glucose 291 H 237 H Hemoglobin A1c Calcium Phosphorus ALT Alkaline Phosphatase C-Reactive Protein 35.80 H NT-Pro-B Natriuret Pep Total Protein Albumin 01/29/17 01/29/17 01/29/17 04:52 07:33 07:56 RBC Hgb Hct RDW Lymph % (Auto) [place] % (Auto) Lymph # [place] # Seg Neutrophils % Seg Neuts % (Manual) Lymphocytes % (Manual) Monocytes % (Manual) Seg Neutrophils # Lymphocytes # (Manual) POC ABG pH POC ABG pCO2 27.9 L POC ABG pO2 Sodium 131 L Potassium 3.1 L Chloride 96.9 L Carbon Dioxide 19 L BUN Glucose 256 H POC Glucose 254 H Hemoglobin A1c Calcium 7.6 L Phosphorus 2.1 L D ALT Alkaline Phosphatase C-Reactive Protein NT-Pro-B Natriuret Pep Total Protein Albumin 01/29/17 01/29/17 01/29/17 12:20 16:12 18:20 RBC Hgb Hct RDW Lymph % (Auto) [place] % (Auto) Lymph # [place] # Seg Neutrophils % Seg Neuts % (Manual) Lymphocytes % (Manual) Monocytes % (Manual) Seg Neutrophils # Lymphocytes # (Manual) POC ABG pH POC ABG pCO2 POC ABG pO2 Sodium Potassium Chloride Carbon Dioxide BUN Glucose POC Glucose 327 H 357 H 356 H Hemoglobin A1c Calcium Phosphorus ALT Alkaline Phosphatase C-Reactive Protein NT-Pro-B Natriuret Pep Total Protein Albumin 01/29/17 01/30/17 01/30/17 21:29 08:30 12:23 RBC Hgb Hct RDW Lymph % (Auto) [place] % (Auto) Lymph # [place] # Seg Neutrophils % Seg Neuts % (Manual) Lymphocytes % (Manual) Monocytes % (Manual) Seg Neutrophils # Lymphocytes # (Manual) POC ABG pH POC ABG pCO2 POC ABG pO2 Sodium Potassium Chloride Carbon Dioxide BUN Glucose POC Glucose 285 H 230 H 245 H Hemoglobin A1c Calcium Phosphorus ALT Alkaline Phosphatase C-Reactive Protein NT-Pro-B Natriuret Pep Total Protein Albumin 01/30/17 01/30/17 01/31/17 15:23 20:32 06:07 RBC Hgb Hct RDW Lymph % (Auto) [place] % (Auto) Lymph # [place] # Seg Neutrophils % Seg Neuts % (Manual) Lymphocytes % (Manual) Monocytes % (Manual) Seg Neutrophils # Lymphocytes # (Manual) POC ABG pH POC ABG pCO2 POC ABG pO2 Sodium 134 L Potassium 3.5 L Chloride 94.7 L Carbon Dioxide BUN Glucose 177 H POC Glucose 238 H 214 H Hemoglobin A1c Calcium 7.6 L Phosphorus ALT Alkaline Phosphatase 177 H C-Reactive Protein NT-Pro-B Natriuret Pep Total Protein 6.0 L Albumin 2.0 L 01/31/17 01/31/17 01/31/17 08:37 11:49 18:11 RBC Hgb Hct RDW Lymph % (Auto) [place] % (Auto) Lymph # [place] # Seg Neutrophils % Seg Neuts % (Manual) Lymphocytes % (Manual) Monocytes % (Manual) Seg Neutrophils # Lymphocytes # (Manual) POC ABG pH POC ABG pCO2 POC ABG pO2 Sodium Potassium Chloride Carbon Dioxide BUN Glucose POC Glucose 162 H 184 H 162 H Hemoglobin A1c Calcium Phosphorus ALT Alkaline Phosphatase C-Reactive Protein NT-Pro-B Natriuret Pep Total Protein Albumin 01/31/17 02/01/17 02/01/17 20:02 06:52 06:52 RBC 3.00 L Hgb 9.4 L Hct 27.5 L RDW 13.1 L Lymph % (Auto) 8.8 L [place] % (Auto) 10.0 H Lymph # 0.9 L [place] # 1.0 H Seg Neutrophils % 80.3 H Seg Neuts % (Manual) Lymphocytes % (Manual) Monocytes % (Manual) Seg Neutrophils # 8.0 H Lymphocytes # (Manual) POC ABG pH POC ABG pCO2 POC ABG pO2 Sodium 136 L Potassium 3.2 L Chloride 95.1 L Carbon Dioxide BUN Glucose 127 H POC Glucose 116 H Hemoglobin A1c Calcium 7.7 L Phosphorus ALT Alkaline Phosphatase C-Reactive Protein NT-Pro-B Natriuret Pep Total Protein Albumin 02/01/17 02/01/17 02/01/17 09:00 12:53 17:47 RBC Hgb Hct RDW Lymph % (Auto) [place] % (Auto) Lymph # [place] # Seg Neutrophils % Seg Neuts % (Manual) Lymphocytes % (Manual) Monocytes % (Manual) Seg Neutrophils # Lymphocytes # (Manual) POC ABG pH POC ABG pCO2 POC ABG pO2 Sodium Potassium Chloride Carbon Dioxide BUN Glucose POC Glucose 172 H 138 H 425 H Hemoglobin A1c Calcium Phosphorus ALT Alkaline Phosphatase C-Reactive Protein NT-Pro-B Natriuret Pep Total Protein Albumin 02/02/17 02/02/17 02/02/17 05:22 05:22 07:42 RBC 3.15 L Hgb 9.8 L Hct 28.4 L RDW 13.0 L Lymph % (Auto) 8.8 L [place] % (Auto) 8.0 H Lymph # 0.8 L [place] # Seg Neutrophils % 82.3 H Seg Neuts % (Manual) Lymphocytes % (Manual) Monocytes % (Manual) Seg Neutrophils # Lymphocytes # (Manual) POC ABG pH POC ABG pCO2 POC ABG pO2 Sodium 133 L Potassium 3.3 L Chloride 92.7 L Carbon Dioxide BUN Glucose 276 H POC Glucose 271 H Hemoglobin A1c Calcium 7.6 L Phosphorus ALT 6 L Alkaline Phosphatase 154 H C-Reactive Protein NT-Pro-B Natriuret Pep Total Protein 6.0 L Albumin 1.8 L 02/02/17 02/02/17 02/02/17 12:02 15:39 15:44 RBC Hgb Hct RDW Lymph % (Auto) [place] % (Auto) Lymph # [place] # Seg Neutrophils % Seg Neuts % (Manual) Lymphocytes % (Manual) Monocytes % (Manual) Seg Neutrophils # Lymphocytes # (Manual) POC ABG pH POC ABG pCO2 POC ABG pO2 Sodium Potassium Chloride Carbon Dioxide BUN Glucose POC Glucose 191 H Hemoglobin A1c Calcium Phosphorus ALT Alkaline Phosphatase C-Reactive Protein 17.30 H NT-Pro-B Natriuret Pep 496.5 H Total Protein Albumin Chest x-ray: report reviewed (bilateral infiltrates.), image reviewed
[2017-02-02] MEDS: LASIX IV SCH (19:00)
[2017-02-03] MEDS: DUONEB 0.5 MG-3 MG/3 ML SOLN IH SCH ×4 (01:59→20:03)
[2017-02-03] MEDS: LASIX IV SCH ×2 (04:42→11:33)
[2017-02-03] MEDS: PEPCID PO SCH (11:33)
[2017-02-03] MEDS: LOVENOX SUB-Q SCH (11:33)
[2017-02-03] MEDS: K-DUR PO SCH (11:33)
--- NOTE | 2017-02-03 12:52 | XRay Report ---
ROUTINE CHEST, TWO VIEWS: HISTORY: Follow up bilateral pulmonary infiltrates. Bilateral infiltrates have decreased by at least 50% since the exam 3 days ago. No pleural effusion or pneumothorax. Normal heart and mediastinal structures. Normal bony thorax. IMPRESSION: Improvement in the bilateral infiltrates by least 50%.
--- NOTE | 2017-02-03 15:18 | Progress Note ---
Assessment and Plan Assessment and plan: --Bilateral pneumonia CT Extensive bilateral multifocal pulmonary infiltrates and presents in superimposed hemorrhage cannot be excluded, Follow-up chest x-ray show significant improvement, monitor off IV antibiotics cultures negative Pulmonary following, --Diabetic ketoacidosis, resolved --Type 2 diabetes mellitus Moderate control, Accu-Chek sliding scale coverage and ADA diet and insulin --Acute hypoxic hypercapnic respiratory failure/bilateral pneumonia Oxygen, titrated to O2 sats more than 90% Nebulizers, pulmonary following --Hypokalemia Replenish per protocol monitor levels --Acute renal failure, resolved --Moderate protein calorie malnutrition Supportive care nutrition supplements --DVT prophylaxis with Lovenox Plan of care discussed with the patient as well as his nurse pulmonary consult and recommendations noted and appreciated Closely monitor the patient, and discharge in 1-2 days if cleared by pulmonary History Interval history: Patient seen and evaluated medical records reviewed Patient looks chronically, he continues to have intermittent cough Denies chest pain or shortness of breath, blood sugars have reasonable 11 Primary following Hospitalist Physical - Constitutional Vitals: Temp Pulse Resp BP Pulse Ox 98.0 F 78 18 106/68 95 02/03/17 12:00 02/03/17 15:15 02/03/17 14:28 02/03/17 12:00 02/03/17 12:00 General appearance: Present: no acute distress, cachectic, other (ill looking) - EENT Eyes: Present: PERRL, EOM intact - Neck Neck: Present: supple, normal ROM - Respiratory Respiratory effort: normal - Cardiovascular Rhythm: regular Heart Sounds: Present: S1 & S2 - Extremities Extremities: no ischemia, pulses intact, pulses symmetrical Peripheral Pulses: within normal limits - Abdominal General gastrointestinal: soft, non-tender, non-distended, normal bowel sounds - Integumentary Integumentary: Present: clear, warm - Psychiatric Psychiatric: appropriate mood/affect, cooperative - Neurologic Neurologic: CNII-XII intact, focal deficits Results - Labs CBC & Chem 7: 02/02/17 05:22 02/02/17 05:22 Labs: Laboratory Last Values WBC 9.3 K/mm3 (4.5-11.0) 02/02/17 05:22 RBC 3.15 M/mm3 (3.65-5.03) L 02/02/17 05:22 Hgb 9.8 gm/dl (11.8-15.2) L 02/02/17 05:22 Hct 28.4 % (35.5-45.6) L 02/02/17 05:22 MCV 90 fl (84-94) 02/02/17 05:22 MCH 31 pg (28-32) 02/02/17 05:22 MCHC 34 % (32-34) 02/02/17 05:22 RDW 13.0 % (13.2-15.2) L 02/02/17 05:22 Plt Count 384 K/mm3 (140-440) 02/02/17 05:22 Lymph % (Auto) 8.8 % (13.4-35.0) L 02/02/17 05:22 [place] % (Auto) 8.0 % (0.0-7.3) H 02/02/17 05:22 Eos % (Auto) 0.6 % (0.0-4.3) 02/02/17 05:22 Baso % (Auto) 0.3 % (0.0-1.8) 02/02/17 05:22 Lymph # 0.8 K/mm3 (1.2-5.4) L 02/02/17 05:22 [place] # 0.8 K/mm3 (0.0-0.8) 02/02/17 05:22 Eos # 0.1 K/mm3 (0.0-0.4) 02/02/17 05:22 Baso # 0.0 K/mm3 (0.0-0.1) 02/02/17 05:22 Add Manual Diff Complete 01/28/17 05:15 Total Counted 100 01/28/17 05:15 Seg Neutrophils % 82.3 % (40.0-70.0) H 02/02/17 05:22 Seg Neuts % (Manual) 73.0 % (40.0-70.0) H 01/28/17 05:15 Band Neutrophils % 10.0 % 01/28/17 05:15 Lymphocytes % (Manual) 9.0 % (13.4-35.0) L 01/28/17 05:15 Reactive Lymphs % (Man) 0 % 01/28/17 05:15 Monocytes % (Manual) 8.0 % (0.0-7.3) H 01/28/17 05:15 Eosinophils % (Manual) 0 % (0.0-4.3) 01/28/17 05:15 Basophils % (Manual) 0 % (0.0-1.8) 01/28/17 05:15 Metamyelocytes % 0 % 01/28/17 05:15 Myelocytes % 0 % 01/28/17 05:15 Promyelocytes % 0 % 01/28/17 05:15 Blast Cells % 0 % 01/28/17 05:15 Nucleated RBC % Not Reportable 01/28/17 05:15 Seg Neutrophils # 7.7 K/mm3 (1.8-7.7) 02/02/17 05:22 Seg Neutrophils # Man 6.6 K/mm3 (1.8-7.7) 01/28/17 05:15 Band Neutrophils # 0.9 K/mm3 01/28/17 05:15 Lymphocytes # (Manual) 0.8 K/mm3 (1.2-5.4) L 01/28/17 05:15 Abs React Lymphs (Man) 0.0 K/mm3 01/28/17 05:15 Monocytes # (Manual) 0.7 K/mm3 (0.0-0.8) 01/28/17 05:15 Eosinophils # (Manual) 0.0 K/mm3 (0.0-0.4) 01/28/17 05:15 Basophils # (Manual) 0.0 K/mm3 (0.0-0.1) 01/28/17 05:15 Metamyelocytes # 0.0 K/mm3 01/28/17 05:15 Myelocytes # 0.0 K/mm3 01/28/17 05:15 Promyelocytes # 0.0 K/mm3 01/28/17 05:15 Blast Cells # 0.0 K/mm3 01/28/17 05:15 WBC Morphology Not Reportable 01/28/17 05:15 Hypersegmented Neuts Not Reportable 01/28/17 05:15 Hyposegmented Neuts Not Reportable 01/28/17 05:15 Hypogranular Neuts Not Reportable 01/28/17 05:15 Smudge Cells Not Reportable 01/28/17 05:15 Toxic Granulation Not Reportable 01/28/17 05:15 Toxic Vacuolation Not Reportable 01/28/17 05:15 Dohle Bodies Not Reportable 01/28/17 05:15 Pelger-Huet Anomaly Not Reportable 01/28/17 05:15 Richard Rods Not Reportable 01/28/17 05:15 Platelet Estimate Consistent w auto 01/28/17 05:15 Clumped Platelets Not Reportable 01/28/17 05:15 Plt Clumps, EDTA Not Reportable 01/28/17 05:15 Large Platelets Not Reportable 01/28/17 05:15 Giant Platelets Not Reportable 01/28/17 05:15 Platelet Satelliting Not Reportable 01/28/17 05:15 Plt Morphology Comment Not Reportable 01/28/17 05:15 RBC Morphology Not Reportable 01/28/17 05:15 Dimorphic RBCs Not Reportable 01/28/17 05:15 Polychromasia Not Reportable 01/28/17 05:15 Hypochromasia 1+ 01/28/17 05:15 Poikilocytosis Not Reportable 01/28/17 05:15 Anisocytosis 1+ 01/28/17 05:15 Microcytosis Not Reportable 01/28/17 05:15 Macrocytosis Not Reportable 01/28/17 05:15 Spherocytes Not Reportable 01/28/17 05:15 Pappenheimer Bodies Not Reportable 01/28/17 05:15 Sickle Cells Not Reportable 01/28/17 05:15 Target Cells Not Reportable 01/28/17 05:15 Tear Drop Cells Not Reportable 01/28/17 05:15 Ovalocytes Not Reportable 01/28/17 05:15 Helmet Cells Not Reportable 01/28/17 05:15 Es[place] Bodies Not Reportable 01/28/17 05:15 Ash Rings Not Reportable 01/28/17 05:15 [place] Cells Not Reportable 01/28/17 05:15 Bite Cells Not Reportable 01/28/17 05:15 Crenated Cell Not Reportable 01/28/17 05:15 Elliptocytes Not Reportable 01/28/17 05:15 Acanthocytes (Spur) Not Reportable 01/28/17 05:15 Rouleaux Not Reportable 01/28/17 05:15 Hemoglobin C Crystals Not Reportable 01/28/17 05:15 Schistocytes Not Reportable 01/28/17 05:15 Malaria parasites Not Reportable 01/28/17 05:15 Kevin Bodies Not Reportable 01/28/17 05:15 Hem Pathologist Commnt No 01/28/17 05:15 POC ABG pH 7.435 (7.35-7.45) 01/29/17 04:52 POC ABG pCO2 27.9 (35-45) L 01/29/17 04:52 POC ABG pO2 98 (80-105) 01/29/17 04:52 POC ABG HCO3 18.7 01/29/17 04:52 POC ABG Total CO2 20 01/29/17 04:52 POC ABG O2 Sat 98 01/29/17 04:52 POC ABG Base Excess -6 01/29/17 04:52 VBG pH 7.210 (7.320-7.420) L 01/26/17 12:23 FiO2 50 % 01/29/17 04:52 Sodium 133 mmol/L (137-145) L 02/02/17 05:22 Potassium 3.3 mmol/L (3.6-5.0) L 02/02/17 05:22 Chloride 92.7 mmol/L (98-107) L 02/02/17 05:22 Carbon Dioxide 28 mmol/L (22-30) 02/02/17 05:22 Anion Gap 16 mmol/L 02/02/17 05:22 BUN 13 mg/dL (9-20) 02/02/17 05:22 Creatinine 0.9 mg/dL (0.8-1.5) 02/02/17 05:22 Estimated GFR > 60 ml/min 02/02/17 05:22 BUN/Creatinine Ratio 14.44 % 02/02/17 05:22 Glucose 276 mg/dL (75-100) H 02/02/17 05:22 POC Glucose 65 (70-105) L 02/02/17 22:10 Hemoglobin A1c 16.1 % (4-6) H 01/27/17 08:29 Lactic Acid 1.1 mmol/L (0.7-2.0) 02/02/17 15:44 Calcium 7.6 mg/dL (8.4-10.2) L 02/02/17 05:22 Phosphorus 3.3 mg/dL (2.5-4.5) 01/31/17 06:07 Magnesium 1.9 mg/dL (1.7-2.3) 02/02/17 05:22 Total Bilirubin 0.5 mg/dL (0.1-1.2) 02/02/17 05:22 Direct Bilirubin < 0.2 mg/dL (0-0.2) 02/02/17 05:22 Indirect Bilirubin 0.3 mg/dL 02/02/17 05:22 AST 10 units/L (5-40) 02/02/17 05:22 ALT 6 units/L (7-56) L 02/02/17 05:22 Alkaline Phosphatase 154 units/L (35-129) H 02/02/17 05:22 Total Creatine Kinase 29 units/L (55-170) L 01/26/17 12:25 CK-MB (CK-2) 1.3 ng/mL (0.0-4.0) 01/26/17 12:25 CK-MB (CK-2) Rel Index 4.4 (0-4) H 01/26/17 12:25 Troponin T < 0.010 ng/mL (0.00-0.029) 01/26/17 12:25 C-Reactive Protein 17.30 mg/dL (0.00-1.30) H 02/02/17 15:44 NT-Pro-B Natriuret Pep 496.5 pg/mL (0-450) H 02/02/17 15:39 Total Protein 6.0 g/dL (6.3-8.2) L 02/02/17 05:22 Albumin 1.8 g/dL (3.9-5) L 02/02/17 05:22 Albumin/Globulin Ratio 0.4 % 02/02/17 05:22 Urine Color Straw (Yellow) 01/26/17 14:26 Urine Turbidity Clear (Clear) 01/26/17 14:26 Urine pH 5.0 (5.0-7.0) 01/26/17 14:26 Ur Specific [place] 1.021 (1.003-1.030) 01/26/17 14:26 Urine Protein 30 mg/dl mg/dL (Negative) 01/26/17 14:26 Urine Glucose (UA) >=500 mg/dL (Negative) 01/26/17 14:26 Urine Ketones 80 mg/dL (Negative) 01/26/17 14:26 Urine Blood Sm (Negative) 01/26/17 14:26 Urine Nitrite Neg (Negative) 01/26/17 14:26 Urine Bilirubin Neg (Negative) 01/26/17 14:26 Urine Urobilinogen < 2.0 mg/dL (<2.0) 01/26/17 14:26 Ur Leukocyte Esterase Neg (Negative) 01/26/17 14:26 Urine WBC (Auto) 2.0 /HPF (0.0-6.0) 01/26/17 14:26 Urine RBC (Auto) 4.0 /HPF (0.0-6.0) 01/26/17 14:26 Urine Bacteria (Auto) 1+ /HPF (Negative) 01/26/17 14:26 Urine Mucus Few /HPF 01/26/17 14:26 Ketones mmol/L (-0.28) 01/26/17 12:23
[2017-02-03 15:19] LABS: B-Hydroxybutyrate 6.3 mmol/L (-0.28)
--- NOTE | 2017-02-03 19:12 | Progress Note ---
Assessment and Plan Patient alert, awake and resting on nasal canula. No complaint of chest pain or shortness of breath.Patient is on 2litres O2. O2 satuaration 97%. - Patient Problems (1) Bilateral pulmonary infiltrates on chest x-ray Current Visit: Yes Status: Acute Plan to address problem: Patient afebrile, No leukocytosis. Repeat chest xray. reported improving pulmonary infiltrates. (2) Acute hypoxemic respiratory failure Current Visit: Yes Status: Acute Plan to address problem: Patient is on O2 supplementation 2litres O2. Albuterol/atrovent aerosol treatments q 6 hours. ABGs on room air tomorrow. Subjective Date of service: 02/03/17 Principal diagnosis: Acute Hypoxemic Respiratory Failure; DKA Interval history: Patient alert, awake and resting on nasal canula. No complaint of chest pain or shortness of breath.Patient is on 2litres O2. O2 satuaration 97%. Significant improvement in bilateral pulmonary infiltrares reported on todays chest xray. Objective Vital Signs - 12hr 02/03/17 02/03/17 02/03/17 08:00 08:40 08:50 Temperature 98.6 F Pulse Rate Pulse Rate [ 80 82 Anterior Bilateral Throughout] Pulse Rate [ 83 Left Radial] Respiratory 20 Rate Respiratory 18 18 Rate [Anterior Bilateral Throughout] Blood Pressure 126/79 [Right Arm] O2 Sat by Pulse 93 97 Oximetry 02/03/17 02/03/17 02/03/17 09:00 12:00 14:18 Temperature 98.0 F Pulse Rate Pulse Rate [ 84 88 Anterior Bilateral Throughout] Pulse Rate [ 77 Left Radial] Respiratory 20 Rate Respiratory 18 18 Rate [Anterior Bilateral Throughout] Blood Pressure 106/68 [Right Arm] O2 Sat by Pulse 95 Oximetry 02/03/17 02/03/17 02/03/17 14:28 15:15 15:16 Temperature Pulse Rate 78 Pulse Rate [ 89 Anterior Bilateral Throughout] Pulse Rate [ Left Radial] Respiratory Rate Respiratory 18 Rate [Anterior Bilateral Throughout] Blood Pressure [Right Arm] O2 Sat by Pulse 98 Oximetry 02/03/17 16:30 Temperature 98.5 F Pulse Rate Pulse Rate [ Anterior Bilateral Throughout] Pulse Rate [ 82 Left Radial] Respiratory 20 Rate Respiratory Rate [Anterior Bilateral Throughout] Blood Pressure 148/88 [Right Arm] O2 Sat by Pulse 96 Oximetry Constitutional: no acute distress, alert Eyes: non-icteric ENT: oropharynx moist Neck: supple, no lymphadenopathy Effort: mildly labored Ascultation: Right: rhonchi, Left: clear, Bilateral: rales Cardiovascular: regular rate and rhythm Gastrointestinal: normoactive bowel sounds, soft, non-tender, non-distended Integumentary: normal Extremities: no cyanosis, no edema, pulses normal, no ischemia or petechiae Neurologic: normal mental status, non-focal exam, pupils equal and round, motor strength normal and Psychiatric: mood appropriate, affect normal CBC and BMP: 02/02/17 05:22 02/02/17 05:22 ABG, PT/INR, D-dimer: ABG POC ABG pH 7.435 (7.35-7.45) 01/29/17 04:52 POC ABG pCO2 27.9 (35-45) L 01/29/17 04:52 POC ABG pO2 98 (80-105) 01/29/17 04:52 POC ABG HCO3 18.7 01/29/17 04:52 POC ABG Total CO2 20 01/29/17 04:52 POC ABG O2 Sat 98 01/29/17 04:52 Abnormal lab findings: Abnormal Labs 01/26/17 01/26/17 01/26/17 20:52 20:52 21:29 RBC Hgb Hct RDW Lymph % (Auto) [place] % (Auto) Lymph # [place] # Seg Neutrophils % Seg Neuts % (Manual) Lymphocytes % (Manual) Monocytes % (Manual) Seg Neutrophils # Lymphocytes # (Manual) POC ABG pH POC ABG pCO2 POC ABG pO2 Sodium 135 L Potassium Chloride Carbon Dioxide 18 L BUN 34 H Glucose 198 H POC Glucose 248 H Hemoglobin A1c Calcium 7.9 L Phosphorus 1.8 L D ALT Alkaline Phosphatase C-Reactive Protein NT-Pro-B Natriuret Pep Total Protein Albumin 01/26/17 01/26/17 01/27/17 23:09 23:19 00:22 RBC Hgb Hct RDW Lymph % (Auto) [place] % (Auto) Lymph # [place] # Seg Neutrophils % Seg Neuts % (Manual) Lymphocytes % (Manual) Monocytes % (Manual) Seg Neutrophils # Lymphocytes # (Manual) POC ABG pH POC ABG pCO2 POC ABG pO2 Sodium Potassium Chloride Carbon Dioxide 14 L BUN 34 H Glucose 301 H POC Glucose 384 H 339 H Hemoglobin A1c Calcium 7.7 L Phosphorus ALT Alkaline Phosphatase C-Reactive Protein NT-Pro-B Natriuret Pep Total Protein Albumin 01/27/17 01/27/17 01/27/17 00:55 01:22 02:39 RBC Hgb Hct RDW Lymph % (Auto) [place] % (Auto) Lymph # [place] # Seg Neutrophils % Seg Neuts % (Manual) Lymphocytes % (Manual) Monocytes % (Manual) Seg Neutrophils # Lymphocytes # (Manual) POC ABG pH POC ABG pCO2 POC ABG pO2 Sodium Potassium Chloride Carbon Dioxide 14 L BUN 33 H Glucose 330 H POC Glucose 301 H 261 H Hemoglobin A1c Calcium 7.5 L Phosphorus ALT Alkaline Phosphatase C-Reactive Protein NT-Pro-B Natriuret Pep Total Protein Albumin 01/27/17 01/27/17 01/27/17 03:47 04:32 04:51 RBC 3.49 L Hgb 10.8 L Hct 31.8 L RDW 12.7 L Lymph % (Auto) 10.1 L [place] % (Auto) 10.4 H Lymph # 0.9 L [place] # 0.9 H Seg Neutrophils % 79.3 H Seg Neuts % (Manual) Lymphocytes % (Manual) Monocytes % (Manual) Seg Neutrophils # Lymphocytes # (Manual) POC ABG pH POC ABG pCO2 POC ABG pO2 Sodium Potassium Chloride Carbon Dioxide BUN Glucose POC Glucose 223 H 165 H Hemoglobin A1c Calcium Phosphorus ALT Alkaline Phosphatase C-Reactive Protein NT-Pro-B Natriuret Pep Total Protein Albumin 01/27/17 01/27/17 01/27/17 04:51 06:36 07:40 RBC Hgb Hct RDW Lymph % (Auto) [place] % (Auto) Lymph # [place] # Seg Neutrophils % Seg Neuts % (Manual) Lymphocytes % (Manual) Monocytes % (Manual) Seg Neutrophils # Lymphocytes # (Manual) POC ABG pH POC ABG pCO2 POC ABG pO2 Sodium Potassium Chloride 108.0 H Carbon Dioxide 19 L BUN 31 H Glucose 149 H POC Glucose 126 H 152 H Hemoglobin A1c Calcium 8.1 L Phosphorus ALT 5 L Alkaline Phosphatase C-Reactive Protein NT-Pro-B Natriuret Pep Total Protein 6.0 L Albumin 2.5 L 01/27/17 01/27/17 01/27/17 08:29 08:29 08:53 RBC Hgb Hct RDW Lymph % (Auto) [place] % (Auto) Lymph # [place] # Seg Neutrophils % Seg Neuts % (Manual) Lymphocytes % (Manual) Monocytes % (Manual) Seg Neutrophils # Lymphocytes # (Manual) POC ABG pH POC ABG pCO2 POC ABG pO2 Sodium Potassium Chloride Carbon Dioxide BUN Glucose POC Glucose 180 H Hemoglobin A1c 16.1 H Calcium Phosphorus 1.1 L D ALT Alkaline Phosphatase C-Reactive Protein NT-Pro-B Natriuret Pep Total Protein Albumin 01/27/17 01/27/17 01/27/17 09:59 11:48 11:53 RBC Hgb Hct RDW Lymph % (Auto) [place] % (Auto) Lymph # [place] # Seg Neutrophils % Seg Neuts % (Manual) Lymphocytes % (Manual) Monocytes % (Manual) Seg Neutrophils # Lymphocytes # (Manual) POC ABG pH 7.348 L POC ABG pCO2 30.6 L POC ABG pO2 51 L Sodium Potassium Chloride Carbon Dioxide BUN Glucose POC Glucose 197 H 213 H Hemoglobin A1c Calcium Phosphorus ALT Alkaline Phosphatase C-Reactive Protein NT-Pro-B Natriuret Pep Total Protein Albumin 01/27/17 01/27/17 01/27/17 13:40 16:08 16:26 RBC Hgb Hct RDW Lymph % (Auto) [place] % (Auto) Lymph # [place] # Seg Neutrophils % Seg Neuts % (Manual) Lymphocytes % (Manual) Monocytes % (Manual) Seg Neutrophils # Lymphocytes # (Manual) POC ABG pH POC ABG pCO2 POC ABG pO2 Sodium 133 L 135 L Potassium 3.5 L 3.4 L Chloride Carbon Dioxide 18 L 19 L BUN 24 H 23 H Glucose 223 H 200 H POC Glucose 196 H Hemoglobin A1c Calcium 7.5 L 7.9 L Phosphorus ALT Alkaline Phosphatase C-Reactive Protein NT-Pro-B Natriuret Pep Total Protein Albumin 01/27/17 01/27/17 01/28/17 20:16 21:41 05:15 RBC 3.11 L Hgb 9.6 L Hct 28.3 L RDW 12.7 L Lymph % (Auto) [place] % (Auto) Lymph # [place] # Seg Neutrophils % Seg Neuts % (Manual) 73.0 H Lymphocytes % (Manual) 9.0 L Monocytes % (Manual) 8.0 H Seg Neutrophils # Lymphocytes # (Manual) 0.8 L POC ABG pH POC ABG pCO2 POC ABG pO2 Sodium 135 L Potassium 3.4 L Chloride Carbon Dioxide 18 L BUN 21 H Glucose 246 H POC Glucose 247 H Hemoglobin A1c Calcium 7.4 L Phosphorus ALT Alkaline Phosphatase C-Reactive Protein NT-Pro-B Natriuret Pep Total Protein Albumin 01/28/17 01/28/17 01/28/17 08:09 09:43 11:35 RBC Hgb Hct RDW Lymph % (Auto) [place] % (Auto) Lymph # [place] # Seg Neutrophils % Seg Neuts % (Manual) Lymphocytes % (Manual) Monocytes % (Manual) Seg Neutrophils # Lymphocytes # (Manual) POC ABG pH POC ABG pCO2 POC ABG pO2 Sodium 134 L Potassium 3.4 L Chloride Carbon Dioxide 16 L BUN 21 H Glucose 267 H POC Glucose 212 H 278 H Hemoglobin A1c Calcium 7.6 L Phosphorus ALT Alkaline Phosphatase C-Reactive Protein NT-Pro-B Natriuret Pep Total Protein Albumin 01/28/17 01/28/17 01/28/17 13:35 16:06 21:36 RBC Hgb Hct RDW Lymph % (Auto) [place] % (Auto) Lymph # [place] # Seg Neutrophils % Seg Neuts % (Manual) Lymphocytes % (Manual) Monocytes % (Manual) Seg Neutrophils # Lymphocytes # (Manual) POC ABG pH POC ABG pCO2 POC ABG pO2 Sodium Potassium Chloride Carbon Dioxide BUN Glucose POC Glucose 291 H 237 H Hemoglobin A1c Calcium Phosphorus ALT Alkaline Phosphatase C-Reactive Protein 35.80 H NT-Pro-B Natriuret Pep Total Protein Albumin 01/29/17 01/29/17 01/29/17 04:52 07:33 07:56 RBC Hgb Hct RDW Lymph % (Auto) [place] % (Auto) Lymph # [place] # Seg Neutrophils % Seg Neuts % (Manual) Lymphocytes % (Manual) Monocytes % (Manual) Seg Neutrophils # Lymphocytes # (Manual) POC ABG pH POC ABG pCO2 27.9 L POC ABG pO2 Sodium 131 L Potassium 3.1 L Chloride 96.9 L Carbon Dioxide 19 L BUN Glucose 256 H POC Glucose 254 H Hemoglobin A1c Calcium 7.6 L Phosphorus 2.1 L D ALT Alkaline Phosphatase C-Reactive Protein NT-Pro-B Natriuret Pep Total Protein Albumin 01/29/17 01/29/17 01/29/17 12:20 16:12 18:20 RBC Hgb Hct RDW Lymph % (Auto) [place] % (Auto) Lymph # [place] # Seg Neutrophils % Seg Neuts % (Manual) Lymphocytes % (Manual) Monocytes % (Manual) Seg Neutrophils # Lymphocytes # (Manual) POC ABG pH POC ABG pCO2 POC ABG pO2 Sodium Potassium Chloride Carbon Dioxide BUN Glucose POC Glucose 327 H 357 H 356 H Hemoglobin A1c Calcium Phosphorus ALT Alkaline Phosphatase C-Reactive Protein NT-Pro-B Natriuret Pep Total Protein Albumin 01/29/17 01/30/17 01/30/17 21:29 08:30 12:23 RBC Hgb Hct RDW Lymph % (Auto) [place] % (Auto) Lymph # [place] # Seg Neutrophils % Seg Neuts % (Manual) Lymphocytes % (Manual) Monocytes % (Manual) Seg Neutrophils # Lymphocytes # (Manual) POC ABG pH POC ABG pCO2 POC ABG pO2 Sodium Potassium Chloride Carbon Dioxide BUN Glucose POC Glucose 285 H 230 H 245 H Hemoglobin A1c Calcium Phosphorus ALT Alkaline Phosphatase C-Reactive Protein NT-Pro-B Natriuret Pep Total Protein Albumin 01/30/17 01/30/17 01/31/17 15:23 20:32 06:07 RBC Hgb Hct RDW Lymph % (Auto) [place] % (Auto) Lymph # [place] # Seg Neutrophils % Seg Neuts % (Manual) Lymphocytes % (Manual) Monocytes % (Manual) Seg Neutrophils # Lymphocytes # (Manual) POC ABG pH POC ABG pCO2 POC ABG pO2 Sodium 134 L Potassium 3.5 L Chloride 94.7 L Carbon Dioxide BUN Glucose 177 H POC Glucose 238 H 214 H Hemoglobin A1c Calcium 7.6 L Phosphorus ALT Alkaline Phosphatase 177 H C-Reactive Protein NT-Pro-B Natriuret Pep Total Protein 6.0 L Albumin 2.0 L 01/31/17 01/31/17 01/31/17 08:37 11:49 18:11 RBC Hgb Hct RDW Lymph % (Auto) [place] % (Auto) Lymph # [place] # Seg Neutrophils % Seg Neuts % (Manual) Lymphocytes % (Manual) Monocytes % (Manual) Seg Neutrophils # Lymphocytes # (Manual) POC ABG pH POC ABG pCO2 POC ABG pO2 Sodium Potassium Chloride Carbon Dioxide BUN Glucose POC Glucose 162 H 184 H 162 H Hemoglobin A1c Calcium Phosphorus ALT Alkaline Phosphatase C-Reactive Protein NT-Pro-B Natriuret Pep Total Protein Albumin 01/31/17 02/01/17 02/01/17 20:02 06:52 06:52 RBC 3.00 L Hgb 9.4 L Hct 27.5 L RDW 13.1 L Lymph % (Auto) 8.8 L [place] % (Auto) 10.0 H Lymph # 0.9 L [place] # 1.0 H Seg Neutrophils % 80.3 H Seg Neuts % (Manual) Lymphocytes % (Manual) Monocytes % (Manual) Seg Neutrophils # 8.0 H Lymphocytes # (Manual) POC ABG pH POC ABG pCO2 POC ABG pO2 Sodium 136 L Potassium 3.2 L Chloride 95.1 L Carbon Dioxide BUN Glucose 127 H POC Glucose 116 H Hemoglobin A1c Calcium 7.7 L Phosphorus ALT Alkaline Phosphatase C-Reactive Protein NT-Pro-B Natriuret Pep Total Protein Albumin 02/01/17 02/01/17 02/01/17 09:00 12:53 17:47 RBC Hgb Hct RDW Lymph % (Auto) [place] % (Auto) Lymph # [place] # Seg Neutrophils % Seg Neuts % (Manual) Lymphocytes % (Manual) Monocytes % (Manual) Seg Neutrophils # Lymphocytes # (Manual) POC ABG pH POC ABG pCO2 POC ABG pO2 Sodium Potassium Chloride Carbon Dioxide BUN Glucose POC Glucose 172 H 138 H 425 H Hemoglobin A1c Calcium Phosphorus ALT Alkaline Phosphatase C-Reactive Protein NT-Pro-B Natriuret Pep Total Protein Albumin 02/02/17 02/02/17 02/02/17 05:22 05:22 07:42 RBC 3.15 L Hgb 9.8 L Hct 28.4 L RDW 13.0 L Lymph % (Auto) 8.8 L [place] % (Auto) 8.0 H Lymph # 0.8 L [place] # Seg Neutrophils % 82.3 H Seg Neuts % (Manual) Lymphocytes % (Manual) Monocytes % (Manual) Seg Neutrophils # Lymphocytes # (Manual) POC ABG pH POC ABG pCO2 POC ABG pO2 Sodium 133 L Potassium 3.3 L Chloride 92.7 L Carbon Dioxide BUN Glucose 276 H POC Glucose 271 H Hemoglobin A1c Calcium 7.6 L Phosphorus ALT 6 L Alkaline Phosphatase 154 H C-Reactive Protein NT-Pro-B Natriuret Pep Total Protein 6.0 L Albumin 1.8 L 02/02/17 02/02/17 02/02/17 12:02 15:39 15:44 RBC Hgb Hct RDW Lymph % (Auto) [place] % (Auto) Lymph # [place] # Seg Neutrophils % Seg Neuts % (Manual) Lymphocytes % (Manual) Monocytes % (Manual) Seg Neutrophils # Lymphocytes # (Manual) POC ABG pH POC ABG pCO2 POC ABG pO2 Sodium Potassium Chloride Carbon Dioxide BUN Glucose POC Glucose 191 H Hemoglobin A1c Calcium Phosphorus ALT Alkaline Phosphatase C-Reactive Protein 17.30 H NT-Pro-B Natriuret Pep 496.5 H Total Protein Albumin 02/02/17 02/03/17 02/03/17 22:10 08:32 12:48 RBC Hgb Hct RDW Lymph % (Auto) [place] % (Auto) Lymph # [place] # Seg Neutrophils % Seg Neuts % (Manual) Lymphocytes % (Manual) Monocytes % (Manual) Seg Neutrophils # Lymphocytes # (Manual) POC ABG pH POC ABG pCO2 POC ABG pO2 Sodium Potassium Chloride Carbon Dioxide BUN Glucose POC Glucose 65 L 239 H 289 H Hemoglobin A1c Calcium Phosphorus ALT Alkaline Phosphatase C-Reactive Protein NT-Pro-B Natriuret Pep Total Protein Albumin 02/03/17 17:12 RBC Hgb Hct RDW Lymph % (Auto) [place] % (Auto) Lymph # [place] # Seg Neutrophils % Seg Neuts % (Manual) Lymphocytes % (Manual) Monocytes % (Manual) Seg Neutrophils # Lymphocytes # (Manual) POC ABG pH POC ABG pCO2 POC ABG pO2 Sodium Potassium Chloride Carbon Dioxide BUN Glucose POC Glucose 329 H Hemoglobin A1c Calcium Phosphorus ALT Alkaline Phosphatase C-Reactive Protein NT-Pro-B Natriuret Pep Total Protein Albumin Chest x-ray: report reviewed (significant improvement in bilateral pulmonary infiltrates.), image reviewed
[2017-02-04] MEDS: DUONEB 0.5 MG-3 MG/3 ML SOLN IH SCH ×4 (01:44→22:34)
[2017-02-04 07:46] LABS: Basophils % (Auto) 0.5 % (0.0-1.8); Eosinophils % (Auto) 1.9 % (0.0-4.3); Hematocrit 29.9 % (35.5-45.6); Hemoglobin 10.1 gm/dl (11.8-15.2); Mean Corpuscular HGB Conc 34 % (32-34); Mean Corpuscular Hemoglobin 31 pg (28-32); Mean Corpuscular Volume 91 fl (84-94); Platelet Count 503 K/mm3 (140-440); Red Blood Count 3.28 M/mm3 (3.65-5.03); Red Cell Distribution Width 12.9 % (13.2-15.2)
[2017-02-04 08:06] LABS: Anion Gap 17 mmol/L; BUN/Creatinine Ratio 16.36; Blood Urea Nitrogen 18 mg/dL (9-20); Calcium 8.1 mg/dL (8.4-10.2); Carbon Dioxide 28 mmol/L (22-30); Chloride 94.9 mmol/L (98-107); Glucose 224 mg/dL (75-100); Magnesium 1.9 mg/dL (1.7-2.3); Potassium 3.5 mmol/L (3.6-5.0); Sodium 136 mmol/L (137-145)
[2017-02-04 09:13] LABS: ISTAT Base Excess 5; ISTAT HCO3 28.5; ISTAT PCO2 37.3 (35-45); ISTAT PH 7.492 (7.35-7.45); ISTAT PO2 53 (80-105); ISTAT SO2 90; ISTAT TCO2 30
[2017-02-04] MEDS: K-DUR PO SCH (09:56)
[2017-02-04] MEDS: LASIX IV SCH (09:56)
[2017-02-04] MEDS: PEPCID PO SCH (09:56)
[2017-02-04] MEDS: LOVENOX SUB-Q SCH (09:57)
--- NOTE | 2017-02-04 15:28 | Progress Note ---
Assessment and Plan Assessment and plan: --Acute hypoxic hypercapnic respiratory failure/bilateral pneumonia Oxygen, titrated to O2 sats more than 90% Check resting room air and ambulatory O2 sat, ABG room air Follow-up x-ray yesterday significant improvement Will repeat the x-ray tomorrow to monitor , pulmonary following --Diabetic ketoacidosis, resolved --Type 2 diabetes mellitus Moderate control, Accu-Chek sliding scale coverage and ADA diet Increase insulin dose --Hypokalemia Replenish per protocol monitor levels --Acute renal failure, resolved --Moderate protein calorie malnutrition Supportive care nutrition supplements --DVT prophylaxis with Lovenox Plan of care discussed with the patient as well as his nurse History Interval history: Patient seen and evaluated in his room this morning Medical records reviewed, no new events reported by the nursing staff Patient feels slightly better, repeat chest x-ray done yesterday revealed significant improvement of bilateral infiltrates Blood sugars reasonable level Patient denies nausea vomiting or abdominal pain Denies chest pain or shortness of breath Alert awake oriented 3 not in acute distress Hospitalist Physical - Constitutional Vitals: Temp Pulse Resp BP Pulse Ox 98.0 F 74 16 110/60 97 02/04/17 12:30 02/04/17 14:36 02/04/17 14:36 02/04/17 12:30 02/04/17 12:30 General appearance: Present: no acute distress, cachectic, other (ill looking) - EENT Eyes: Present: PERRL, EOM intact - Neck Neck: Present: supple, normal ROM - Respiratory Respiratory effort: normal Respiratory: bilateral: diminished, rhonchi (occasional) - Cardiovascular Rhythm: regular Heart Sounds: Present: S1 & S2 - Extremities Extremities: no ischemia, pulses intact, pulses symmetrical Peripheral Pulses: within normal limits - Abdominal General gastrointestinal: soft, non-tender, non-distended, normal bowel sounds - Integumentary Integumentary: Present: clear, warm - Psychiatric Psychiatric: appropriate mood/affect, cooperative - Neurologic Neurologic: CNII-XII intact, moves all extremities Results - Labs CBC & Chem 7: 02/04/17 07:17 02/04/17 07:17 Labs: Laboratory Last Values WBC 8.0 K/mm3 (4.5-11.0) 02/04/17 07:17 RBC 3.28 M/mm3 (3.65-5.03) L 02/04/17 07:17 Hgb 10.1 gm/dl (11.8-15.2) L 02/04/17 07:17 Hct 29.9 % (35.5-45.6) L 02/04/17 07:17 MCV 91 fl (84-94) 02/04/17 07:17 MCH 31 pg (28-32) 02/04/17 07:17 MCHC 34 % (32-34) 02/04/17 07:17 RDW 12.9 % (13.2-15.2) L 02/04/17 07:17 Plt Count 503 K/mm3 (140-440) H 02/04/17 07:17 Lymph % (Auto) 19.5 % (13.4-35.0) 02/04/17 07:17 [place] % (Auto) 7.3 % (0.0-7.3) 02/04/17 07:17 Eos % (Auto) 1.9 % (0.0-4.3) 02/04/17 07:17 Baso % (Auto) 0.5 % (0.0-1.8) 02/04/17 07:17 Lymph # 1.6 K/mm3 (1.2-5.4) 02/04/17 07:17 [place] # 0.6 K/mm3 (0.0-0.8) 02/04/17 07:17 Eos # 0.2 K/mm3 (0.0-0.4) 02/04/17 07:17 Baso # 0.0 K/mm3 (0.0-0.1) 02/04/17 07:17 Add Manual Diff Complete 01/28/17 05:15 Total Counted 100 01/28/17 05:15 Seg Neutrophils % 70.8 % (40.0-70.0) H 02/04/17 07:17 Seg Neuts % (Manual) 73.0 % (40.0-70.0) H 01/28/17 05:15 Band Neutrophils % 10.0 % 01/28/17 05:15 Lymphocytes % (Manual) 9.0 % (13.4-35.0) L 01/28/17 05:15 Reactive Lymphs % (Man) 0 % 01/28/17 05:15 Monocytes % (Manual) 8.0 % (0.0-7.3) H 01/28/17 05:15 Eosinophils % (Manual) 0 % (0.0-4.3) 01/28/17 05:15 Basophils % (Manual) 0 % (0.0-1.8) 01/28/17 05:15 Metamyelocytes % 0 % 01/28/17 05:15 Myelocytes % 0 % 01/28/17 05:15 Promyelocytes % 0 % 01/28/17 05:15 Blast Cells % 0 % 01/28/17 05:15 Nucleated RBC % Not Reportable 01/28/17 05:15 Seg Neutrophils # 5.7 K/mm3 (1.8-7.7) 02/04/17 07:17 Seg Neutrophils # Man 6.6 K/mm3 (1.8-7.7) 01/28/17 05:15 Band Neutrophils # 0.9 K/mm3 01/28/17 05:15 Lymphocytes # (Manual) 0.8 K/mm3 (1.2-5.4) L 01/28/17 05:15 Abs React Lymphs (Man) 0.0 K/mm3 01/28/17 05:15 Monocytes # (Manual) 0.7 K/mm3 (0.0-0.8) 01/28/17 05:15 Eosinophils # (Manual) 0.0 K/mm3 (0.0-0.4) 01/28/17 05:15 Basophils # (Manual) 0.0 K/mm3 (0.0-0.1) 01/28/17 05:15 Metamyelocytes # 0.0 K/mm3 01/28/17 05:15 Myelocytes # 0.0 K/mm3 01/28/17 05:15 Promyelocytes # 0.0 K/mm3 01/28/17 05:15 Blast Cells # 0.0 K/mm3 01/28/17 05:15 WBC Morphology Not Reportable 01/28/17 05:15 Hypersegmented Neuts Not Reportable 01/28/17 05:15 Hyposegmented Neuts Not Reportable 01/28/17 05:15 Hypogranular Neuts Not Reportable 01/28/17 05:15 Smudge Cells Not Reportable 01/28/17 05:15 Toxic Granulation Not Reportable 01/28/17 05:15 Toxic Vacuolation Not Reportable 01/28/17 05:15 Dohle Bodies Not Reportable 01/28/17 05:15 Pelger-Huet Anomaly Not Reportable 01/28/17 05:15 Richard Rods Not Reportable 01/28/17 05:15 Platelet Estimate Consistent w auto 01/28/17 05:15 Clumped Platelets Not Reportable 01/28/17 05:15 Plt Clumps, EDTA Not Reportable 01/28/17 05:15 Large Platelets Not Reportable 01/28/17 05:15 Giant Platelets Not Reportable 01/28/17 05:15 Platelet Satelliting Not Reportable 01/28/17 05:15 Plt Morphology Comment Not Reportable 01/28/17 05:15 RBC Morphology Not Reportable 01/28/17 05:15 Dimorphic RBCs Not Reportable 01/28/17 05:15 Polychromasia Not Reportable 01/28/17 05:15 Hypochromasia 1+ 01/28/17 05:15 Poikilocytosis Not Reportable 01/28/17 05:15 Anisocytosis 1+ 01/28/17 05:15 Microcytosis Not Reportable 01/28/17 05:15 Macrocytosis Not Reportable 01/28/17 05:15 Spherocytes Not Reportable 01/28/17 05:15 Pappenheimer Bodies Not Reportable 01/28/17 05:15 Sickle Cells Not Reportable 01/28/17 05:15 Target Cells Not Reportable 01/28/17 05:15 Tear Drop Cells Not Reportable 01/28/17 05:15 Ovalocytes Not Reportable 01/28/17 05:15 Helmet Cells Not Reportable 01/28/17 05:15 [place] Bodies Not Reportable 01/28/17 05:15 Prim Rings Not Reportable 01/28/17 05:15 [place] Cells Not Reportable 01/28/17 05:15 Bite Cells Not Reportable 01/28/17 05:15 Crenated Cell Not Reportable 01/28/17 05:15 Elliptocytes Not Reportable 01/28/17 05:15 Acanthocytes (Spur) Not Reportable 01/28/17 05:15 Rouleaux Not Reportable 01/28/17 05:15 Hemoglobin C Crystals Not Reportable 01/28/17 05:15 Schistocytes Not Reportable 01/28/17 05:15 Malaria parasites Not Reportable 01/28/17 05:15 Kevin Bodies Not Reportable 01/28/17 05:15 Hem Pathologist Commnt No 01/28/17 05:15 POC ABG pH 7.492 (7.35-7.45) H 02/04/17 08:54 POC ABG pCO2 37.3 (35-45) 02/04/17 08:54 POC ABG pO2 53 (80-105) L 02/04/17 08:54 POC ABG HCO3 28.5 02/04/17 08:54 POC ABG Total CO2 30 02/04/17 08:54 POC ABG O2 Sat 90 02/04/17 08:54 POC ABG Base Excess 5 02/04/17 08:54 VBG pH 7.210 (7.320-7.420) L 01/26/17 12:23 FiO2 21 % 02/04/17 08:54 Sodium 136 mmol/L (137-145) L 02/04/17 07:17 Potassium 3.5 mmol/L (3.6-5.0) L 02/04/17 07:17 Chloride 94.9 mmol/L (98-107) L 02/04/17 07:17 Carbon Dioxide 28 mmol/L (22-30) 02/04/17 07:17 Anion Gap 17 mmol/L 02/04/17 07:17 BUN 18 mg/dL (9-20) 02/04/17 07:17 Creatinine 1.1 mg/dL (0.8-1.5) 02/04/17 07:17 Estimated GFR > 60 ml/min 02/04/17 07:17 BUN/Creatinine Ratio 16.36 % 02/04/17 07:17 Glucose 224 mg/dL (75-100) H 02/04/17 07:17 POC Glucose 284 (70-105) H 02/04/17 12:10 Hemoglobin A1c 16.1 % (4-6) H 01/27/17 08:29 Lactic Acid 1.1 mmol/L (0.7-2.0) 02/02/17 15:44 Calcium 8.1 mg/dL (8.4-10.2) L 02/04/17 07:17 Phosphorus 3.3 mg/dL (2.5-4.5) 01/31/17 06:07 Magnesium 1.9 mg/dL (1.7-2.3) 02/04/17 07:17 Total Bilirubin 0.5 mg/dL (0.1-1.2) 02/02/17 05:22 Direct Bilirubin < 0.2 mg/dL (0-0.2) 02/02/17 05:22 Indirect Bilirubin 0.3 mg/dL 02/02/17 05:22 AST 10 units/L (5-40) 02/02/17 05:22 ALT 6 units/L (7-56) L 02/02/17 05:22 Alkaline Phosphatase 154 units/L (35-129) H 02/02/17 05:22 Total Creatine Kinase 29 units/L (55-170) L 01/26/17 12:25 CK-MB (CK-2) 1.3 ng/mL (0.0-4.0) 01/26/17 12:25 CK-MB (CK-2) Rel Index 4.4 (0-4) H 01/26/17 12:25 Troponin T < 0.010 ng/mL (0.00-0.029) 01/26/17 12:25 C-Reactive Protein 17.30 mg/dL (0.00-1.30) H 02/02/17 15:44 NT-Pro-B Natriuret Pep 496.5 pg/mL (0-450) H 02/02/17 15:39 Total Protein 6.0 g/dL (6.3-8.2) L 02/02/17 05:22 Albumin 1.8 g/dL (3.9-5) L 02/02/17 05:22 Albumin/Globulin Ratio 0.4 % 02/02/17 05:22 Urine Color Straw (Yellow) 01/26/17 14:26 Urine Turbidity Clear (Clear) 01/26/17 14:26 Urine pH 5.0 (5.0-7.0) 01/26/17 14:26 Ur Specific [place] 1.021 (1.003-1.030) 01/26/17 14:26 Urine Protein 30 mg/dl mg/dL (Negative) 01/26/17 14:26 Urine Glucose (UA) >=500 mg/dL (Negative) 01/26/17 14:26 Urine Ketones 80 mg/dL (Negative) 01/26/17 14:26 Urine Blood Sm (Negative) 01/26/17 14:26 Urine Nitrite Neg (Negative) 01/26/17 14: Urine Bilirubin Neg (Negative) 01/26/17 14:26 Urine Urobilinogen < 2.0 mg/dL (<2.0) 01/26/17 14:26 Ur Leukocyte Esterase Neg (Negative) 01/26/17 14:26 Urine WBC (Auto) 2.0 /HPF (0.0-6.0) 01/26/17 14:26 Urine RBC (Auto) 4.0 /HPF (0.0-6.0) 01/26/17 14:26 Urine Bacteria (Auto) 1+ /HPF (Negative) 01/26/17 14: Urine Mucus Few /HPF 01/26/17 14:26 Ketones 6.3 mmol/L (-0.28) H 01/26/17 12:23
--- NOTE | 2017-02-04 17:50 | Progress Note ---
Assessment and Plan Patient alert, awake and resting on nasal canula. No complaint of chest pain or shortness of breath.Still has some cough.Patient is on 2litres O2. O2 satuaration 97%. Significant improvement in bilateral pulmonary infiltrares reported on recent chest xray. Patients ABGs on room air PH 7.49, PCO2 37, PO2 53, HCO3 28.5, O2 satuaration 90%. Patient is candidate for home O2.. Recommend to arrange home O2 2 litres via nasal canula. - Patient Problems (1) Bilateral pulmonary infiltrates on chest x-ray Current Visit: Yes Status: Acute Plan to address problem: Patient afebrile, No leukocytosis. Repeat chest xray. reported improving pulmonary infiltrates. (2) Acute hypoxemic respiratory failure Current Visit: Yes Status: Acute Plan to address problem: Patient is on O2 supplementation 2litres O2. Albuterol/atrovent aerosol treatments q 6 hours. ABGs on room air PH 7.49, PCO2 37, PO2 53, HCO3 28.5., O2 satuaration 90%. Patient is candidate for home O2. Recommend O2 2 litres via nasal canula. Subjective Date of service: 02/04/17 Principal diagnosis: Acute Hypoxemic Respiratory Failure; DKA Interval history: Patient alert, awake and resting on nasal canula. No complaint of chest pain or shortness of breath.Still has some cough.Patient is on 2litres O2. O2 satuaration 97%. Significant improvement in bilateral pulmonary infiltrares reported on recent chest xray. Patients ABGs on room air PH 7.49, PCO2 37, PO2 53, HCO3 28.5, O2 satuaration 90%. Patient is candidate for home O2.. Recommend to arrange home O2 2 litres via nasal canula. Objective Vital Signs - 12hr 02/04/17 02/04/17 02/04/17 08:00 08:10 08:20 Temperature 98.5 F Pulse Rate [ 70 76 Anterior Bilateral Throughout] Pulse Rate [ 84 Left Radial] Respiratory 18 Rate Respiratory 18 20 Rate [Anterior Bilateral Throughout] Blood Pressure 113/70 [Right Arm] O2 Sat by Pulse Oximetry 02/04/17 02/04/17 02/04/17 09:35 12:30 14:19 Temperature 98.0 F Pulse Rate [ 78 Anterior Bilateral Throughout] Pulse Rate [ 80 Left Radial] Respiratory 18 Rate Respiratory 16 Rate [Anterior Bilateral Throughout] Blood Pressure 110/60 [Right Arm] O2 Sat by Pulse 98 97 Oximetry 02/04/17 14:36 Temperature Pulse Rate [ 74 Anterior Bilateral Throughout] Pulse Rate [ Left Radial] Respiratory Rate Respiratory 16 Rate [Anterior Bilateral Throughout] Blood Pressure [Right Arm] O2 Sat by Pulse Oximetry Constitutional: no acute distress, alert Eyes: non-icteric ENT: oropharynx moist Neck: supple, no lymphadenopathy Effort: mildly labored Ascultation: Right: rhonchi, Left: clear, Bilateral: rales Cardiovascular: regular rate and rhythm Gastrointestinal: normoactive bowel sounds, soft, non-tender, non-distended Integumentary: normal Extremities: no cyanosis, no edema, pulses normal, no ischemia or petechiae Neurologic: normal mental status, non-focal exam, pupils equal and round, motor strength normal and Psychiatric: mood appropriate, affect normal CBC and BMP: 02/04/17 07:17 02/04/17 07:17 ABG, PT/INR, D-dimer: ABG POC ABG pH 7.492 (7.35-7.45) H 02/04/17 08:54 POC ABG pCO2 37.3 (35-45) 02/04/17 08:54 POC ABG pO2 53 (80-105) L 02/04/17 08:54 POC ABG HCO3 28.5 02/04/17 08:54 POC ABG Total CO2 30 02/04/17 08:54 POC ABG O2 Sat 90 02/04/17 08:54 Abnormal lab findings: Abnormal Labs 01/26/17 01/26/17 01/26/17 20:52 20:52 21:29 RBC Hgb Hct RDW Plt Count Lymph % (Auto) Harvey % (Auto) Lymph # Harvey # Seg Neutrophils % Seg Neuts % (Manual) Lymphocytes % (Manual) Monocytes % (Manual) Seg Neutrophils # Lymphocytes # (Manual) POC ABG pH POC ABG pCO2 POC ABG pO2 Sodium 135 L Potassium Chloride Carbon Dioxide 18 L BUN 34 H Glucose 198 H POC Glucose 248 H Hemoglobin A1c Calcium 7.9 L Phosphorus 1.8 L D ALT Alkaline Phosphatase C-Reactive Protein NT-Pro-B Natriuret Pep Total Protein Albumin 01/26/17 01/26/17 01/27/17 23:09 23:19 00:22 RBC Hgb Hct RDW Plt Count Lymph % (Auto) Harvey % (Auto) Lymph # Harvey # Seg Neutrophils % Seg Neuts % (Manual) Lymphocytes % (Manual) Monocytes % (Manual) Seg Neutrophils # Lymphocytes # (Manual) POC ABG pH POC ABG pCO2 POC ABG pO2 Sodium Potassium Chloride Carbon Dioxide 14 L BUN 34 H Glucose 301 H POC Glucose 384 H 339 H Hemoglobin A1c Calcium 7.7 L Phosphorus ALT Alkaline Phosphatase C-Reactive Protein NT-Pro-B Natriuret Pep Total Protein Albumin 01/27/17 01/27/17 01/27/17 00:55 01:22 02:39 RBC Hgb Hct RDW Plt Count Lymph % (Auto) Harvey % (Auto) Lymph # Harvey # Seg Neutrophils % Seg Neuts % (Manual) Lymphocytes % (Manual) Monocytes % (Manual) Seg Neutrophils # Lymphocytes # (Manual) POC ABG pH POC ABG pCO2 POC ABG pO2 Sodium Potassium Chloride Carbon Dioxide 14 L BUN 33 H Glucose 330 H POC Glucose 301 H 261 H Hemoglobin A1c Calcium 7.5 L Phosphorus ALT Alkaline Phosphatase C-Reactive Protein NT-Pro-B Natriuret Pep Total Protein Albumin 01/27/17 01/27/17 01/27/17 03:47 04:32 04:51 RBC 3.49 L Hgb 10.8 L Hct 31.8 L RDW 12.7 L Plt Count Lymph % (Auto) 10.1 L Harvey % (Auto) 10.4 H Lymph # 0.9 L Harvey # 0.9 H Seg Neutrophils % 79.3 H Seg Neuts % (Manual) Lymphocytes % (Manual) Monocytes % (Manual) Seg Neutrophils # Lymphocytes # (Manual) POC ABG pH POC ABG pCO2 POC ABG pO2 Sodium Potassium Chloride Carbon Dioxide BUN Glucose POC Glucose 223 H 165 H Hemoglobin A1c Calcium Phosphorus ALT Alkaline Phosphatase C-Reactive Protein NT-Pro-B Natriuret Pep Total Protein Albumin 01/27/17 01/27/17 01/27/17 04:51 06:36 07:40 RBC Hgb Hct RDW Plt Count Lymph % (Auto) Harvey % (Auto) Lymph # Harvey # Seg Neutrophils % Seg Neuts % (Manual) Lymphocytes % (Manual) Monocytes % (Manual) Seg Neutrophils # Lymphocytes # (Manual) POC ABG pH POC ABG pCO2 POC ABG pO2 Sodium Potassium Chloride 108.0 H Carbon Dioxide 19 L BUN 31 H Glucose 149 H POC Glucose 126 H 152 H Hemoglobin A1c Calcium 8.1 L Phosphorus ALT 5 L Alkaline Phosphatase C-Reactive Protein NT-Pro-B Natriuret Pep Total Protein 6.0 L Albumin 2.5 L 01/27/17 01/27/17 01/27/17 08:29 08:29 08:53 RBC Hgb Hct RDW Plt Count Lymph % (Auto) Harvey % (Auto) Lymph # Harvey # Seg Neutrophils % Seg Neuts % (Manual) Lymphocytes % (Manual) Monocytes % (Manual) Seg Neutrophils # Lymphocytes # (Manual) POC ABG pH POC ABG pCO2 POC ABG pO2 Sodium Potassium Chloride Carbon Dioxide BUN Glucose POC Glucose 180 H Hemoglobin A1c 16.1 H Calcium Phosphorus 1.1 L D ALT Alkaline Phosphatase C-Reactive Protein NT-Pro-B Natriuret Pep Total Protein Albumin 01/27/17 01/27/17 01/27/17 09:59 11:48 11:53 RBC Hgb Hct RDW Plt Count Lymph % (Auto) Harvey % (Auto) Lymph # Harvey # Seg Neutrophils % Seg Neuts % (Manual) Lymphocytes % (Manual) Monocytes % (Manual) Seg Neutrophils # Lymphocytes # (Manual) POC ABG pH 7.348 L POC ABG pCO2 30.6 L POC ABG pO2 51 L Sodium Potassium Chloride Carbon Dioxide BUN Glucose POC Glucose 197 H 213 H Hemoglobin A1c Calcium Phosphorus ALT Alkaline Phosphatase C-Reactive Protein NT-Pro-B Natriuret Pep Total Protein Albumin 01/27/17 01/27/17 01/27/17 13:40 16:08 16:26 RBC Hgb Hct RDW Plt Count Lymph % (Auto) Harvey % (Auto) Lymph # Harvey # Seg Neutrophils % Seg Neuts % (Manual) Lymphocytes % (Manual) Monocytes % (Manual) Seg Neutrophils # Lymphocytes # (Manual) POC ABG pH POC ABG pCO2 POC ABG pO2 Sodium 133 L 135 L Potassium 3.5 L 3.4 L Chloride Carbon Dioxide 18 L 19 L BUN 24 H 23 H Glucose 223 H 200 H POC Glucose 196 H Hemoglobin A1c Calcium 7.5 L 7.9 L Phosphorus ALT Alkaline Phosphatase C-Reactive Protein NT-Pro-B Natriuret Pep Total Protein Albumin 01/27/17 01/27/17 01/28/17 20:16 21:41 05:15 RBC 3.11 L Hgb 9.6 L Hct 28.3 L RDW 12.7 L Plt Count Lymph % (Auto) Harvey % (Auto) Lymph # Harvey # Seg Neutrophils % Seg Neuts % (Manual) 73.0 H Lymphocytes % (Manual) 9.0 L Monocytes % (Manual) 8.0 H Seg Neutrophils # Lymphocytes # (Manual) 0.8 L POC ABG pH POC ABG pCO2 POC ABG pO2 Sodium 135 L Potassium 3.4 L Chloride Carbon Dioxide 18 L BUN 21 H Glucose 246 H POC Glucose 247 H Hemoglobin A1c Calcium 7.4 L Phosphorus ALT Alkaline Phosphatase C-Reactive Protein NT-Pro-B Natriuret Pep Total Protein Albumin 01/28/17 01/28/17 01/28/17 08:09 09:43 11:35 RBC Hgb Hct RDW Plt Count Lymph % (Auto) Harvey % (Auto) Lymph # Harvey # Seg Neutrophils % Seg Neuts % (Manual) Lymphocytes % (Manual) Monocytes % (Manual) Seg Neutrophils # Lymphocytes # (Manual) POC ABG pH POC ABG pCO2 POC ABG pO2 Sodium 134 L Potassium 3.4 L Chloride Carbon Dioxide 16 L BUN 21 H Glucose 267 H POC Glucose 212 H 278 H Hemoglobin A1c Calcium 7.6 L Phosphorus ALT Alkaline Phosphatase C-Reactive Protein NT-Pro-B Natriuret Pep Total Protein Albumin 01/28/17 01/28/17 01/28/17 13:35 16:06 21:36 RBC Hgb Hct RDW Plt Count Lymph % (Auto) Harvey % (Auto) Lymph # Harvey # Seg Neutrophils % Seg Neuts % (Manual) Lymphocytes % (Manual) Monocytes % (Manual) Seg Neutrophils # Lymphocytes # (Manual) POC ABG pH POC ABG pCO2 POC ABG pO2 Sodium Potassium Chloride Carbon Dioxide BUN Glucose POC Glucose 291 H 237 H Hemoglobin A1c Calcium Phosphorus ALT Alkaline Phosphatase C-Reactive Protein 35.80 H NT-Pro-B Natriuret Pep Total Protein Albumin 01/29/17 01/29/17 01/29/17 04:52 07:33 07:56 RBC Hgb Hct RDW Plt Count Lymph % (Auto) Harvey % (Auto) Lymph # Harvey # Seg Neutrophils % Seg Neuts % (Manual) Lymphocytes % (Manual) Monocytes % (Manual) Seg Neutrophils # Lymphocytes # (Manual) POC ABG pH POC ABG pCO2 27.9 L POC ABG pO2 Sodium 131 L Potassium 3.1 L Chloride 96.9 L Carbon Dioxide 19 L BUN Glucose 256 H POC Glucose 254 H Hemoglobin A1c Calcium 7.6 L Phosphorus 2.1 L D ALT Alkaline Phosphatase C-Reactive Protein NT-Pro-B Natriuret Pep Total Protein Albumin 01/29/17 01/29/17 01/29/17 12:20 16:12 18:20 RBC Hgb Hct RDW Plt Count Lymph % (Auto) Harvey % (Auto) Lymph # Harvey # Seg Neutrophils % Seg Neuts % (Manual) Lymphocytes % (Manual) Monocytes % (Manual) Seg Neutrophils # Lymphocytes # (Manual) POC ABG pH POC ABG pCO2 POC ABG pO2 Sodium Potassium Chloride Carbon Dioxide BUN Glucose POC Glucose 327 H 357 H 356 H Hemoglobin A1c Calcium Phosphorus ALT Alkaline Phosphatase C-Reactive Protein NT-Pro-B Natriuret Pep Total Protein Albumin 01/29/17 01/30/17 01/30/17 21:29 08:30 12:23 RBC Hgb Hct RDW Plt Count Lymph % (Auto) Harvey % (Auto) Lymph # Harvey # Seg Neutrophils % Seg Neuts % (Manual) Lymphocytes % (Manual) Monocytes % (Manual) Seg Neutrophils # Lymphocytes # (Manual) POC ABG pH POC ABG pCO2 POC ABG pO2 Sodium Potassium Chloride Carbon Dioxide BUN Glucose POC Glucose 285 H 230 H 245 H Hemoglobin A1c Calcium Phosphorus ALT Alkaline Phosphatase C-Reactive Protein NT-Pro-B Natriuret Pep Total Protein Albumin 01/30/17 01/30/17 01/31/17 15:23 20:32 06:07 RBC Hgb Hct RDW Plt Count Lymph % (Auto) Harvey % (Auto) Lymph # Harvey # Seg Neutrophils % Seg Neuts % (Manual) Lymphocytes % (Manual) Monocytes % (Manual) Seg Neutrophils # Lymphocytes # (Manual) POC ABG pH POC ABG pCO2 POC ABG pO2 Sodium 134 L Potassium 3.5 L Chloride 94.7 L Carbon Dioxide BUN Glucose 177 H POC Glucose 238 H 214 H Hemoglobin A1c Calcium 7.6 L Phosphorus ALT Alkaline Phosphatase 177 H C-Reactive Protein NT-Pro-B Natriuret Pep Total Protein 6.0 L Albumin 2.0 L 01/31/17 01/31/17 01/31/17 08:37 11:49 18:11 RBC Hgb Hct RDW Plt Count Lymph % (Auto) Harvey % (Auto) Lymph # Harvey # Seg Neutrophils % Seg Neuts % (Manual) Lymphocytes % (Manual) Monocytes % (Manual) Seg Neutrophils # Lymphocytes # (Manual) POC ABG pH POC ABG pCO2 POC ABG pO2 Sodium Potassium Chloride Carbon Dioxide BUN Glucose POC Glucose 162 H 184 H 162 H Hemoglobin A1c Calcium Phosphorus ALT Alkaline Phosphatase C-Reactive Protein NT-Pro-B Natriuret Pep Total Protein Albumin 01/31/17 02/01/17 02/01/17 20:02 06:52 06:52 RBC 3.00 L Hgb 9.4 L Hct 27.5 L RDW 13.1 L Plt Count Lymph % (Auto) 8.8 L Harvey % (Auto) 10.0 H Lymph # 0.9 L Harvey # 1.0 H Seg Neutrophils % 80.3 H Seg Neuts % (Manual) Lymphocytes % (Manual) Monocytes % (Manual) Seg Neutrophils # 8.0 H Lymphocytes # (Manual) POC ABG pH POC ABG pCO2 POC ABG pO2 Sodium 136 L Potassium 3.2 L Chloride 95.1 L Carbon Dioxide BUN Glucose 127 H POC Glucose 116 H Hemoglobin A1c Calcium 7.7 L Phosphorus ALT Alkaline Phosphatase C-Reactive Protein NT-Pro-B Natriuret Pep Total Protein Albumin 02/01/17 02/01/17 02/01/17 09:00 12:53 17:47 RBC Hgb Hct RDW Plt Count Lymph % (Auto) Harvey % (Auto) Lymph # Harvey # Seg Neutrophils % Seg Neuts % (Manual) Lymphocytes % (Manual) Monocytes % (Manual) Seg Neutrophils # Lymphocytes # (Manual) POC ABG pH POC ABG pCO2 POC ABG pO2 Sodium Potassium Chloride Carbon Dioxide BUN Glucose POC Glucose 172 H 138 H 425 H Hemoglobin A1c Calcium Phosphorus ALT Alkaline Phosphatase C-Reactive Protein NT-Pro-B Natriuret Pep Total Protein Albumin 02/02/17 02/02/17 02/02/17 05:22 05:22 07:42 RBC 3.15 L Hgb 9.8 L Hct 28.4 L RDW 13.0 L Plt Count Lymph % (Auto) 8.8 L Harvey % (Auto) 8.0 H Lymph # 0.8 L Harvey # Seg Neutrophils % 82.3 H Seg Neuts % (Manual) Lymphocytes % (Manual) Monocytes % (Manual) Seg Neutrophils # Lymphocytes # (Manual) POC ABG pH POC ABG pCO2 POC ABG pO2 Sodium 133 L Potassium 3.3 L Chloride 92.7 L Carbon Dioxide BUN Glucose 276 H POC Glucose 271 H Hemoglobin A1c Calcium 7.6 L Phosphorus ALT 6 L Alkaline Phosphatase 154 H C-Reactive Protein NT-Pro-B Natriuret Pep Total Protein 6.0 L Albumin 1.8 L 02/02/17 02/02/17 02/02/17 12:02 15:39 15:44 RBC Hgb Hct RDW Plt Count Lymph % (Auto) Harvey % (Auto) Lymph # Harvey # Seg Neutrophils % Seg Neuts % (Manual) Lymphocytes % (Manual) Monocytes % (Manual) Seg Neutrophils # Lymphocytes # (Manual) POC ABG pH POC ABG pCO2 POC ABG pO2 Sodium Potassium Chloride Carbon Dioxide BUN Glucose POC Glucose 191 H Hemoglobin A1c Calcium Phosphorus ALT Alkaline Phosphatase C-Reactive Protein 17.30 H NT-Pro-B Natriuret Pep 496.5 H Total Protein Albumin 02/02/17 02/03/17 02/03/17 22:10 08:32 12:48 RBC Hgb Hct RDW Plt Count Lymph % (Auto) Harvey % (Auto) Lymph # Harvey # Seg Neutrophils % Seg Neuts % (Manual) Lymphocytes % (Manual) Monocytes % (Manual) Seg Neutrophils # Lymphocytes # (Manual) POC ABG pH POC ABG pCO2 POC ABG pO2 Sodium Potassium Chloride Carbon Dioxide BUN Glucose POC Glucose 65 L 239 H 289 H Hemoglobin A1c Calcium Phosphorus ALT Alkaline Phosphatase C-Reactive Protein NT-Pro-B Natriuret Pep Total Protein Albumin 02/03/17 02/03/17 02/04/17 17:12 21:50 07:17 RBC 3.28 L Hgb 10.1 L Hct 29.9 L RDW 12.9 L Plt Count 503 H Lymph % (Auto) Harvey % (Auto) Lymph # Harvey # Seg Neutrophils % 70.8 H Seg Neuts % (Manual) Lymphocytes % (Manual) Monocytes % (Manual) Seg Neutrophils # Lymphocytes # (Manual) POC ABG pH POC ABG pCO2 POC ABG pO2 Sodium Potassium Chloride Carbon Dioxide BUN Glucose POC Glucose 329 H 158 H Hemoglobin A1c Calcium Phosphorus ALT Alkaline Phosphatase C-Reactive Protein NT-Pro-B Natriuret Pep Total Protein Albumin 02/04/17 02/04/17 02/04/17 07:17 07:17 08:54 RBC Hgb Hct RDW Plt Count Lymph % (Auto) Harvey % (Auto) Lymph # Harvey # Seg Neutrophils % Seg Neuts % (Manual) Lymphocytes % (Manual) Monocytes % (Manual) Seg Neutrophils # Lymphocytes # (Manual) POC ABG pH 7.492 H POC ABG pCO2 POC ABG pO2 53 L Sodium 136 L Potassium 3.5 L Chloride 94.9 L Carbon Dioxide BUN Glucose 224 H POC Glucose 221 H Hemoglobin A1c Calcium 8.1 L Phosphorus ALT Alkaline Phosphatase C-Reactive Protein NT-Pro-B Natriuret Pep Total Protein Albumin 02/04/17 02/04/17 12:10 16:35 RBC Hgb Hct RDW Plt Count Lymph % (Auto) Harvey % (Auto) Lymph # Harvey # Seg Neutrophils % Seg Neuts % (Manual) Lymphocytes % (Manual) Monocytes % (Manual) Seg Neutrophils # Lymphocytes # (Manual) POC ABG pH POC ABG pCO2 POC ABG pO2 Sodium Potassium Chloride Carbon Dioxide BUN Glucose POC Glucose 284 H 178 H Hemoglobin A1c Calcium Phosphorus ALT Alkaline Phosphatase C-Reactive Protein NT-Pro-B Natriuret Pep Total Protein Albumin
[2017-02-04] MEDS: ROBITUSSIN DM PO PRN (20:28)
[2017-02-05] MEDS: DUONEB 0.5 MG-3 MG/3 ML SOLN IH SCH ×4 (02:54→21:07)
[2017-02-05] MEDS: ROBITUSSIN DM PO PRN (03:53)
[2017-02-05 07:37] LABS: Calcium 8.2 mg/dL (8.4-10.2); Chloride 94.9 mmol/L (98-107); Magnesium 1.9 mg/dL (1.7-2.3); Potassium 4.3 mmol/L (3.6-5.0)
--- NOTE | 2017-02-05 08:39 | XRay Report ---
ROUTINE CHEST, TWO VIEWS: HISTORY: Followup bilateral infiltrates. Mild, patchy bilateral infiltrates have not significantly changed since 02/03/17. No consolidation, pleural effusion or pneumothorax. Normal heart and mediastinal structures. IMPRESSION: No significant change.
--- NOTE | 2017-02-05 10:03 | Progress Note ---
Assessment and Plan - Patient Problems (1) Aspiration pneumonia Current Visit: Yes Status: Acute Qualifiers: Aspiration pneumonia type: A Laterality: L Lung location: L Plan to address problem: - CT chest with bilateral infiltrates (suspect pulmonary edema element) - s/p trial of diuresis - on prn BIPAP - continue to wean oxygen for sats > 92% - has completed 5 days of AB's and will follow off - CRP improved - home oxygen evaluation ongoing (2) Acute hypoxemic respiratory failure Current Visit: Yes Status: Acute Plan to address problem: - as above (3) DKA (diabetic ketoacidoses) Current Visit: Yes Status: Deleted Qualifiers: Diabetes mellitus type: D Diabetes mellitus complication detail: D Plan to address problem: - resolved - continue SSI - introduced home meds (4) Discharge planning issues Current Visit: Yes Status: Acute Plan to address problem: - still unsteady on feet; some mild desaturations; looks ill - suggest acute rehabilitation evaluation and if does not qualify discharge planning for tomorrow +/- home health [facility] Subjective Date of service: 02/05/17 Principal diagnosis: Acute Hypoxemic Respiratory Failure; DKA Interval history: Seen and examined at bedside; 24 hour events reviewed; nursing and respiratory care staff consulted; no adverse overnight events reported to me; seen during six minute walk and unsteady on feet; denies acute chest pains or increased SOB ; No N/V/F/C Objective Vital Signs - 12hr 02/04/17 02/04/17 02/04/17 22:35 22:36 22:43 Temperature Pulse Rate [ 81 84 Anterior Bilateral Throughout] Pulse Rate [ Apical] Respiratory Rate Respiratory 17 17 Rate [Anterior Bilateral Throughout] Blood Pressure [Right Arm] O2 Sat by Pulse 98 Oximetry 02/05/17 02/05/17 02/05/17 01:00 02:55 03:09 Temperature 98.0 F Pulse Rate [ 79 81 Anterior Bilateral Throughout] Pulse Rate [ 87 Apical] Respiratory 18 Rate Respiratory 16 16 Rate [Anterior Bilateral Throughout] Blood Pressure 98/63 [Right Arm] O2 Sat by Pulse 98 Oximetry 02/05/17 02/05/17 02/05/17 05:42 08:57 09:12 Temperature 98.9 F Pulse Rate [ 84 86 Anterior Bilateral Throughout] Pulse Rate [ 98 H Apical] Respiratory 18 Rate Respiratory 16 16 Rate [Anterior Bilateral Throughout] Blood Pressure 108/63 [Right Arm] O2 Sat by Pulse 98 98 Oximetry Constitutional: no acute distress, alert Eyes: non-icteric ENT: oropharynx moist Neck: supple, no lymphadenopathy Effort: mildly labored Ascultation: Bilateral: rales Cardiovascular: regular rate and rhythm Gastrointestinal: normoactive bowel sounds, soft, non-tender, non-distended Integumentary: normal Extremities: no cyanosis, no edema, pulses normal, no ischemia or petechiae Neurologic: normal mental status, non-focal exam, pupils equal and round, motor strength normal and Psychiatric: mood appropriate, affect normal CBC and BMP: 02/04/17 07:17 02/05/17 06:29 ABG, PT/INR, D-dimer: ABG POC ABG pH 7.492 (7.35-7.45) H 02/04/17 08:54 POC ABG pCO2 37.3 (35-45) 02/04/17 08:54 POC ABG pO2 53 (80-105) L 02/04/17 08:54 POC ABG HCO3 28.5 02/04/17 08:54 POC ABG Total CO2 30 02/04/17 08:54 POC ABG O2 Sat 90 02/04/17 08:54 Abnormal lab findings: Abnormal Labs 01/26/17 01/26/17 01/26/17 20:52 20:52 21:29 RBC Hgb Hct RDW Plt Count Lymph % (Auto) [place] % (Auto) Lymph # [place] # Seg Neutrophils % Seg Neuts % (Manual) Lymphocytes % (Manual) Monocytes % (Manual) Seg Neutrophils # Lymphocytes # (Manual) POC ABG pH POC ABG pCO2 POC ABG pO2 Sodium 135 L Potassium Chloride Carbon Dioxide 18 L BUN 34 H Glucose 198 H POC Glucose 248 H Hemoglobin A1c Calcium 7.9 L Phosphorus 1.8 L D ALT Alkaline Phosphatase C-Reactive Protein NT-Pro-B Natriuret Pep Total Protein Albumin 01/26/17 01/26/17 01/27/17 23:09 23:19 00:22 RBC Hgb Hct RDW Plt Count Lymph % (Auto) [place] % (Auto) Lymph # [place] # Seg Neutrophils % Seg Neuts % (Manual) Lymphocytes % (Manual) Monocytes % (Manual) Seg Neutrophils # Lymphocytes # (Manual) POC ABG pH POC ABG pCO2 POC ABG pO2 Sodium Potassium Chloride Carbon Dioxide 14 L BUN 34 H Glucose 301 H POC Glucose 384 H 339 H Hemoglobin A1c Calcium 7.7 L Phosphorus ALT Alkaline Phosphatase C-Reactive Protein NT-Pro-B Natriuret Pep Total Protein Albumin 01/27/17 01/27/17 01/27/17 00:55 01:22 02:39 RBC Hgb Hct RDW Plt Count Lymph % (Auto) [place] % (Auto) Lymph # [place] # Seg Neutrophils % Seg Neuts % (Manual) Lymphocytes % (Manual) Monocytes % (Manual) Seg Neutrophils # Lymphocytes # (Manual) POC ABG pH POC ABG pCO2 POC ABG pO2 Sodium Potassium Chloride Carbon Dioxide 14 L BUN 33 H Glucose 330 H POC Glucose 301 H 261 H Hemoglobin A1c Calcium 7.5 L Phosphorus ALT Alkaline Phosphatase C-Reactive Protein NT-Pro-B Natriuret Pep Total Protein Albumin 01/27/17 01/27/17 01/27/17 03:47 04:32 04:51 RBC 3.49 L Hgb 10.8 L Hct 31.8 L RDW 12.7 L Plt Count Lymph % (Auto) 10.1 L [place] % (Auto) 10.4 H Lymph # 0.9 L [place] # 0.9 H Seg Neutrophils % 79.3 H Seg Neuts % (Manual) Lymphocytes % (Manual) Monocytes % (Manual) Seg Neutrophils # Lymphocytes # (Manual) POC ABG pH POC ABG pCO2 POC ABG pO2 Sodium Potassium Chloride Carbon Dioxide BUN Glucose POC Glucose 223 H 165 H Hemoglobin A1c Calcium Phosphorus ALT Alkaline Phosphatase C-Reactive Protein NT-Pro-B Natriuret Pep Total Protein Albumin 01/27/17 01/27/17 01/27/17 04:51 06:36 07:40 RBC Hgb Hct RDW Plt Count Lymph % (Auto) [place] % (Auto) Lymph # [place] # Seg Neutrophils % Seg Neuts % (Manual) Lymphocytes % (Manual) Monocytes % (Manual) Seg Neutrophils # Lymphocytes # (Manual) POC ABG pH POC ABG pCO2 POC ABG pO2 Sodium Potassium Chloride 108.0 H Carbon Dioxide 19 L BUN 31 H Glucose 149 H POC Glucose 126 H 152 H Hemoglobin A1c Calcium 8.1 L Phosphorus ALT 5 L Alkaline Phosphatase C-Reactive Protein NT-Pro-B Natriuret Pep Total Protein 6.0 L Albumin 2.5 L 01/27/17 01/27/17 01/27/17 08:29 08:29 08:53 RBC Hgb Hct RDW Plt Count Lymph % (Auto) [place] % (Auto) Lymph # [place] # Seg Neutrophils % Seg Neuts % (Manual) Lymphocytes % (Manual) Monocytes % (Manual) Seg Neutrophils # Lymphocytes # (Manual) POC ABG pH POC ABG pCO2 POC ABG pO2 Sodium Potassium Chloride Carbon Dioxide BUN Glucose POC Glucose 180 H Hemoglobin A1c 16.1 H Calcium Phosphorus 1.1 L D ALT Alkaline Phosphatase C-Reactive Protein NT-Pro-B Natriuret Pep Total Protein Albumin 01/27/17 01/27/17 01/27/17 09:59 11:48 11:53 RBC Hgb Hct RDW Plt Count Lymph % (Auto) [place] % (Auto) Lymph # [place] # Seg Neutrophils % Seg Neuts % (Manual) Lymphocytes % (Manual) Monocytes % (Manual) Seg Neutrophils # Lymphocytes # (Manual) POC ABG pH 7.348 L POC ABG pCO2 30.6 L POC ABG pO2 51 L Sodium Potassium Chloride Carbon Dioxide BUN Glucose POC Glucose 197 H 213 H Hemoglobin A1c Calcium Phosphorus ALT Alkaline Phosphatase C-Reactive Protein NT-Pro-B Natriuret Pep Total Protein Albumin 01/27/17 01/27/17 01/27/17 13:40 16:08 16:26 RBC Hgb Hct RDW Plt Count Lymph % (Auto) [place] % (Auto) Lymph # [place] # Seg Neutrophils % Seg Neuts % (Manual) Lymphocytes % (Manual) Monocytes % (Manual) Seg Neutrophils # Lymphocytes # (Manual) POC ABG pH POC ABG pCO2 POC ABG pO2 Sodium 133 L 135 L Potassium 3.5 L 3.4 L Chloride Carbon Dioxide 18 L 19 L BUN 24 H 23 H Glucose 223 H 200 H POC Glucose 196 H Hemoglobin A1c Calcium 7.5 L 7.9 L Phosphorus ALT Alkaline Phosphatase C-Reactive Protein NT-Pro-B Natriuret Pep Total Protein Albumin 01/27/17 01/27/17 01/28/17 20:16 21:41 05:15 RBC 3.11 L Hgb 9.6 L Hct 28.3 L RDW 12.7 L Plt Count Lymph % (Auto) [place] % (Auto) Lymph # [place] # Seg Neutrophils % Seg Neuts % (Manual) 73.0 H Lymphocytes % (Manual) 9.0 L Monocytes % (Manual) 8.0 H Seg Neutrophils # Lymphocytes # (Manual) 0.8 L POC ABG pH POC ABG pCO2 POC ABG pO2 Sodium 135 L Potassium 3.4 L Chloride Carbon Dioxide 18 L BUN 21 H Glucose 246 H POC Glucose 247 H Hemoglobin A1c Calcium 7.4 L Phosphorus ALT Alkaline Phosphatase C-Reactive Protein NT-Pro-B Natriuret Pep Total Protein Albumin 01/28/17 01/28/17 01/28/17 08:09 09:43 11:35 RBC Hgb Hct RDW Plt Count Lymph % (Auto) [place] % (Auto) Lymph # [place] # Seg Neutrophils % Seg Neuts % (Manual) Lymphocytes % (Manual) Monocytes % (Manual) Seg Neutrophils # Lymphocytes # (Manual) POC ABG pH POC ABG pCO2 POC ABG pO2 Sodium 134 L Potassium 3.4 L Chloride Carbon Dioxide 16 L BUN 21 H Glucose 267 H POC Glucose 212 H 278 H Hemoglobin A1c Calcium 7.6 L Phosphorus ALT Alkaline Phosphatase C-Reactive Protein NT-Pro-B Natriuret Pep Total Protein Albumin 01/28/17 01/28/17 01/28/17 13:35 16:06 21:36 RBC Hgb Hct RDW Plt Count Lymph % (Auto) [place] % (Auto) Lymph # [place] # Seg Neutrophils % Seg Neuts % (Manual) Lymphocytes % (Manual) Monocytes % (Manual) Seg Neutrophils # Lymphocytes # (Manual) POC ABG pH POC ABG pCO2 POC ABG pO2 Sodium Potassium Chloride Carbon Dioxide BUN Glucose POC Glucose 291 H 237 H Hemoglobin A1c Calcium Phosphorus ALT Alkaline Phosphatase C-Reactive Protein 35.80 H NT-Pro-B Natriuret Pep Total Protein Albumin 01/29/17 01/29/17 01/29/17 04:52 07:33 07:56 RBC Hgb Hct RDW Plt Count Lymph % (Auto) [place] % (Auto) Lymph # [place] # Seg Neutrophils % Seg Neuts % (Manual) Lymphocytes % (Manual) Monocytes % (Manual) Seg Neutrophils # Lymphocytes # (Manual) POC ABG pH POC ABG pCO2 27.9 L POC ABG pO2 Sodium 131 L Potassium 3.1 L Chloride 96.9 L Carbon Dioxide 19 L BUN Glucose 256 H POC Glucose 254 H Hemoglobin A1c Calcium 7.6 L Phosphorus 2.1 L D ALT Alkaline Phosphatase C-Reactive Protein NT-Pro-B Natriuret Pep Total Protein Albumin 01/29/17 01/29/17 01/29/17 12:20 16:12 18:20 RBC Hgb Hct RDW Plt Count Lymph % (Auto) [place] % (Auto) Lymph # [place] # Seg Neutrophils % Seg Neuts % (Manual) Lymphocytes % (Manual) Monocytes % (Manual) Seg Neutrophils # Lymphocytes # (Manual) POC ABG pH POC ABG pCO2 POC ABG pO2 Sodium Potassium Chloride Carbon Dioxide BUN Glucose POC Glucose 327 H 357 H 356 H Hemoglobin A1c Calcium Phosphorus ALT Alkaline Phosphatase C-Reactive Protein NT-Pro-B Natriuret Pep Total Protein Albumin 01/29/17 01/30/17 01/30/17 21:29 08:30 12:23 RBC Hgb Hct RDW Plt Count Lymph % (Auto) [place] % (Auto) Lymph # [place] # Seg Neutrophils % Seg Neuts % (Manual) Lymphocytes % (Manual) Monocytes % (Manual) Seg Neutrophils # Lymphocytes # (Manual) POC ABG pH POC ABG pCO2 POC ABG pO2 Sodium Potassium Chloride Carbon Dioxide BUN Glucose POC Glucose 285 H 230 H 245 H Hemoglobin A1c Calcium Phosphorus ALT Alkaline Phosphatase C-Reactive Protein NT-Pro-B Natriuret Pep Total Protein Albumin 01/30/17 01/30/17 01/31/17 15:23 20:32 06:07 RBC Hgb Hct RDW Plt Count Lymph % (Auto) [place] % (Auto) Lymph # [place] # Seg Neutrophils % Seg Neuts % (Manual) Lymphocytes % (Manual) Monocytes % (Manual) Seg Neutrophils # Lymphocytes # (Manual) POC ABG pH POC ABG pCO2 POC ABG pO2 Sodium 134 L Potassium 3.5 L Chloride 94.7 L Carbon Dioxide BUN Glucose 177 H POC Glucose 238 H 214 H Hemoglobin A1c Calcium 7.6 L Phosphorus ALT Alkaline Phosphatase 177 H C-Reactive Protein NT-Pro-B Natriuret Pep Total Protein 6.0 L Albumin 2.0 L 01/31/17 01/31/17 01/31/17 08:37 11:49 18:11 RBC Hgb Hct RDW Plt Count Lymph % (Auto) [place] % (Auto) Lymph # [place] # Seg Neutrophils % Seg Neuts % (Manual) Lymphocytes % (Manual) Monocytes % (Manual) Seg Neutrophils # Lymphocytes # (Manual) POC ABG pH POC ABG pCO2 POC ABG pO2 Sodium Potassium Chloride Carbon Dioxide BUN Glucose POC Glucose 162 H 184 H 162 H Hemoglobin A1c Calcium Phosphorus ALT Alkaline Phosphatase C-Reactive Protein NT-Pro-B Natriuret Pep Total Protein Albumin 01/31/17 02/01/1717 20:02 06:52 06:52 RBC 3.00 L Hgb 9.4 L Hct 27.5 L RDW 13.1 L Plt Count Lymph % (Auto) 8.8 L [place] % (Auto) 10.0 H Lymph # 0.9 L [place] # 1.0 H Seg Neutrophils % 80.3 H Seg Neuts % (Manual) Lymphocytes % (Manual) Monocytes % (Manual) Seg Neutrophils # 8.0 H Lymphocytes # (Manual) POC ABG pH POC ABG pCO2 POC ABG pO2 Sodium 136 L Potassium 3.2 L Chloride 95.1 L Carbon Dioxide BUN Glucose 127 H POC Glucose 116 H Hemoglobin A1c Calcium 7.7 L Phosphorus ALT Alkaline Phosphatase C-Reactive Protein NT-Pro-B Natriuret Pep Total Protein Albumin 02/01/17 02/01/17 02/01/17 09:00 12:53 17:47 RBC Hgb Hct RDW Plt Count Lymph % (Auto) [place] % (Auto) Lymph # [place] # Seg Neutrophils % Seg Neuts % (Manual) Lymphocytes % (Manual) Monocytes % (Manual) Seg Neutrophils # Lymphocytes # (Manual) POC ABG pH POC ABG pCO2 POC ABG pO2 Sodium Potassium Chloride Carbon Dioxide BUN Glucose POC Glucose 172 H 138 H 425 H Hemoglobin A1c Calcium Phosphorus ALT Alkaline Phosphatase C-Reactive Protein NT-Pro-B Natriuret Pep Total Protein Albumin 02/02/17 02/02/17 02/02/17 05:22 05:22 07:42 RBC 3.15 L Hgb 9.8 L Hct 28.4 L RDW 13.0 L Plt Count Lymph % (Auto) 8.8 L [place] % (Auto) 8.0 H Lymph # 0.8 L [place] # Seg Neutrophils % 82.3 H Seg Neuts % (Manual) Lymphocytes % (Manual) Monocytes % (Manual) Seg Neutrophils # Lymphocytes # (Manual) POC ABG pH POC ABG pCO2 POC ABG pO2 Sodium 133 L Potassium 3.3 L Chloride 92.7 L Carbon Dioxide BUN Glucose 276 H POC Glucose 271 H Hemoglobin A1c Calcium 7.6 L Phosphorus ALT 6 L Alkaline Phosphatase 154 H C-Reactive Protein NT-Pro-B Natriuret Pep Total Protein 6.0 L Albumin 1.8 L 02/02/17 02/02/17 02/02/17 12:02 15:39 15:44 RBC Hgb Hct RDW Plt Count Lymph % (Auto) [place] % (Auto) Lymph # [place] # Seg Neutrophils % Seg Neuts % (Manual) Lymphocytes % (Manual) Monocytes % (Manual) Seg Neutrophils # Lymphocytes # (Manual) POC ABG pH POC ABG pCO2 POC ABG pO2 Sodium Potassium Chloride Carbon Dioxide BUN Glucose POC Glucose 191 H Hemoglobin A1c Calcium Phosphorus ALT Alkaline Phosphatase C-Reactive Protein 17.30 H NT-Pro-B Natriuret Pep 496.5 H Total Protein Albumin 02/02/17 02/03/17 02/03/17 22:10 08:32 12:48 RBC Hgb Hct RDW Plt Count Lymph % (Auto) [place] % (Auto) Lymph # [place] # Seg Neutrophils % Seg Neuts % (Manual) Lymphocytes % (Manual) Monocytes % (Manual) Seg Neutrophils # Lymphocytes # (Manual) POC ABG pH POC ABG pCO2 POC ABG pO2 Sodium Potassium Chloride Carbon Dioxide BUN Glucose POC Glucose 65 L 239 H 289 H Hemoglobin A1c Calcium Phosphorus ALT Alkaline Phosphatase C-Reactive Protein NT-Pro-B Natriuret Pep Total Protein Albumin 02/03/17 02/03/17 02/04/17 17:12 21:50 07:17 RBC 3.28 L Hgb 10.1 L Hct 29.9 L RDW 12.9 L Plt Count 503 H Lymph % (Auto) [place] % (Auto) Lymph # [place] # Seg Neutrophils % 70.8 H Seg Neuts % (Manual) Lymphocytes % (Manual) Monocytes % (Manual) Seg Neutrophils # Lymphocytes # (Manual) POC ABG pH POC ABG pCO2 POC ABG pO2 Sodium Potassium Chloride Carbon Dioxide BUN Glucose POC Glucose 329 H 158 H Hemoglobin A1c Calcium Phosphorus ALT Alkaline Phosphatase C-Reactive Protein NT-Pro-B Natriuret Pep Total Protein Albumin 02/04/17 02/04/17 02/04/17 07:17 07:17 08:54 RBC Hgb Hct RDW Plt Count Lymph % (Auto) [place] % (Auto) Lymph # [place] # Seg Neutrophils % Seg Neuts % (Manual) Lymphocytes % (Manual) Monocytes % (Manual) Seg Neutrophils # Lymphocytes # (Manual) POC ABG pH 7.492 H POC ABG pCO2 POC ABG pO2 53 L Sodium 136 L Potassium 3.5 L Chloride 94.9 L Carbon Dioxide BUN Glucose 224 H POC Glucose 221 H Hemoglobin A1c Calcium 8.1 L Phosphorus ALT Alkaline Phosphatase C-Reactive Protein NT-Pro-B Natriuret Pep Total Protein Albumin 02/04/17 02/04/17 02/04/17 12:10 16:35 20:23 RBC Hgb Hct RDW Plt Count Lymph % (Auto) [place] % (Auto) Lymph # [place] # Seg Neutrophils % Seg Neuts % (Manual) Lymphocytes % (Manual) Monocytes % (Manual) Seg Neutrophils # Lymphocytes # (Manual) POC ABG pH POC ABG pCO2 POC ABG pO2 Sodium Potassium Chloride Carbon Dioxide BUN Glucose POC Glucose 284 H 178 H 217 H Hemoglobin A1c Calcium Phosphorus ALT Alkaline Phosphatase C-Reactive Protein NT-Pro-B Natriuret Pep Total Protein Albumin 02/05/17 06:29 RBC Hgb Hct RDW Plt Count Lymph % (Auto) [place] % (Auto) Lymph # [place] # Seg Neutrophils % Seg Neuts % (Manual) Lymphocytes % (Manual) Monocytes % (Manual) Seg Neutrophils # Lymphocytes # (Manual) POC ABG pH POC ABG pCO2 POC ABG pO2 Sodium 134 L Potassium Chloride 94.9 L Carbon Dioxide BUN 26 H Glucose 306 H POC Glucose Hemoglobin A1c Calcium 8.2 L Phosphorus ALT Alkaline Phosphatase C-Reactive Protein NT-Pro-B Natriuret Pep Total Protein Albumin Chest x-ray: image reviewed (overall improved but stable from last CXR)
--- NOTE | 2017-02-05 13:09 | Progress Note ---
Assessment and Plan Assessment and plan: --Bilateral aspiration pneumonia Received antibiotics, monitor off antibiotics per pulmonary Supportive care --Acute hypoxic hypercapnic respiratory failure, aspiration pneumonia Oxygen, titrated to O2 sats more than 90% Check resting room air and ambulatory O2 sat, ABG room air Follow-up x-ray today no significant change --Diabetic ketoacidosis, resolved --Type 2 diabetes mellitus Moderate control, Accu-Chek sliding scale coverage and ADA diet Increase insulin dose --Hypokalemia Replenish per protocol monitor levels --Acute renal failure, resolved --Moderate protein calorie malnutrition Supportive care nutrition supplements --DVT prophylaxis with Lovenox Plan of care discussed with the patient as well as his nurse Home oxygen evaluation We will also request acute rehabilitation screen for acute versus subacute rehabilitation versus home with home health Possible discharge in 1-2 days if stable Treatment plan discussed with the patient ,narrow gauge operator, patient's nurse as well as the transplant case manager History Interval history: Patient seen and evaluated in his room medical records reviewed Patient feels slightly better, wants to go home Looks chronically ill, cough significantly improved Alert awake oriented 3 not in acute distress vital signs reviewed Hospitalist Physical - Constitutional Vitals: Temp Pulse Resp BP Pulse Ox 98.9 F 86 16 108/63 98 02/05/17 05:42 02/05/17 09:12 02/05/17 09:12 02/05/17 05:42 02/05/17 08:57 General appearance: Present: no acute distress, cachectic, other (ill looking) - EENT Eyes: Present: PERRL, EOM intact - Neck Neck: Present: supple, normal ROM - Respiratory Respiratory effort: normal Respiratory: bilateral: diminished, rhonchi, negative: rales, wheezing - Cardiovascular Rhythm: regular Heart Sounds: Present: S1 & S2 - Extremities Extremities: no ischemia, pulses intact, pulses symmetrical Peripheral Pulses: within normal limits - Abdominal General gastrointestinal: soft, non-tender, non-distended, normal bowel sounds - Integumentary Integumentary: Present: clear, warm - Psychiatric Psychiatric: appropriate mood/affect, cooperative - Neurologic Neurologic: CNII-XII intact, moves all extremities Results - Labs CBC & Chem 7: 02/04/17 07:17 02/05/17 06:29 Labs: Laboratory Last Values WBC 8.0 K/mm3 (4.5-11.0) 02/04/17 07:17 RBC 3.28 M/mm3 (3.65-5.03) L 02/04/17 07:17 Hgb 10.1 gm/dl (11.8-15.2) L 02/04/17 07:17 Hct 29.9 % (35.5-45.6) L 02/04/17 07:17 MCV 91 fl (84-94) 02/04/17 07:17 MCH 31 pg (28-32) 02/04/17 07:17 MCHC 34 % (32-34) 02/04/17 07:17 RDW 12.9 % (13.2-15.2) L 02/04/17 07:17 Plt Count 503 K/mm3 (140-440) H 02/04/17 07:17 Lymph % (Auto) 19.5 % (13.4-35.0) 02/04/17 07:17 [place] % (Auto) 7.3 % (0.0-7.3) 02/04/17 07:17 Eos % (Auto) 1.9 % (0.0-4.3) 02/04/17 07:17 Baso % (Auto) 0.5 % (0.0-1.8) 02/04/17 07:17 Lymph # 1.6 K/mm3 (1.2-5.4) 02/04/17 07:17 [place] # 0.6 K/mm3 (0.0-0.8) 02/04/17 07:17 Eos # 0.2 K/mm3 (0.0-0.4) 02/04/17 07:17 Baso # 0.0 K/mm3 (0.0-0.1) 02/04/17 07:17 Add Manual Diff Complete 01/28/17 05:15 Total Counted 100 01/28/17 05:15 Seg Neutrophils % 70.8 % (40.0-70.0) H 02/04/17 07:17 Seg Neuts % (Manual) 73.0 % (40.0-70.0) H 01/28/17 05:15 Band Neutrophils % 10.0 % 01/28/17 05:15 Lymphocytes % (Manual) 9.0 % (13.4-35.0) L 01/28/17 05:15 Reactive Lymphs % (Man) 0 % 01/28/17 05:15 Monocytes % (Manual) 8.0 % (0.0-7.3) H 01/28/17 05:15 Eosinophils % (Manual) 0 % (0.0-4.3) 01/28/17 05:15 Basophils % (Manual) 0 % (0.0-1.8) 01/28/17 05:15 Metamyelocytes % 0 % 01/28/17 05:15 Myelocytes % 0 % 01/28/17 05:15 Promyelocytes % 0 % 01/28/17 05:15 Blast Cells % 0 % 01/28/17 05:15 Nucleated RBC % Not Reportable 01/28/17 05:15 Seg Neutrophils # 5.7 K/mm3 (1.8-7.7) 02/04/17 07:17 Seg Neutrophils # Man 6.6 K/mm3 (1.8-7.7) 01/28/17 05:15 Band Neutrophils # 0.9 K/mm3 01/28/17 05:15 Lymphocytes # (Manual) 0.8 K/mm3 (1.2-5.4) L 01/28/17 05:15 Abs React Lymphs (Man) 0.0 K/mm3 01/28/17 05:15 Monocytes # (Manual) 0.7 K/mm3 (0.0-0.8) 01/28/17 05:15 Eosinophils # (Manual) 0.0 K/mm3 (0.0-0.4) 01/28/17 05:15 Basophils # (Manual) 0.0 K/mm3 (0.0-0.1) 01/28/17 05:15 Metamyelocytes # 0.0 K/mm3 01/28/17 05:15 Myelocytes # 0.0 K/mm3 01/28/17 05:15 Promyelocytes # 0.0 K/mm3 01/28/17 05:15 Blast Cells # 0.0 K/mm3 01/28/17 05:15 WBC Morphology Not Reportable 01/28/17 05:15 Hypersegmented Neuts Not Reportable 01/28/17 05:15 Hyposegmented Neuts Not Reportable 01/28/17 05:15 Hypogranular Neuts Not Reportable 01/28/17 05:15 Smudge Cells Not Reportable 01/28/17 05:15 Toxic Granulation Not Reportable 01/28/17 05:15 Toxic Vacuolation Not Reportable 01/28/17 05:15 Dohle Bodies Not Reportable 01/28/17 05:15 Pelger-Huet Anomaly Not Reportable 01/28/17 05:15 Richard Rods Not Reportable 01/28/17 05:15 Platelet Estimate Consistent w auto 01/28/17 05:15 Clumped Platelets Not Reportable 01/28/17 05:15 Plt Clumps, EDTA Not Reportable 01/28/17 05:15 Large Platelets Not Reportable 01/28/17 05:15 Giant Platelets Not Reportable 01/28/17 05:15 Platelet Satelliting Not Reportable 01/28/17 05:15 Plt Morphology Comment Not Reportable 01/28/17 05:15 RBC Morphology Not Reportable 01/28/17 05:15 Dimorphic RBCs Not Reportable 01/28/17 05:15 Polychromasia Not Reportable 01/28/17 05:15 Hypochromasia 1+ 01/28/17 05:15 Poikilocytosis Not Reportable 01/28/17 05:15 Anisocytosis 1+ 01/28/17 05:15 Microcytosis Not Reportable 01/28/17 05:15 Macrocytosis Not Reportable 01/28/17 05:15 Spherocytes Not Reportable 01/28/17 05:15 Pappenheimer Bodies Not Reportable 01/28/17 05:15 Sickle Cells Not Reportable 01/28/17 05:15 Target Cells Not Reportable 01/28/17 05:15 Tear Drop Cells Not Reportable 01/28/17 05:15 Ovalocytes Not Reportable 01/28/17 05:15 Helmet Cells Not Reportable 01/28/17 05:15 [place] Bodies Not Reportable 01/28/17 05:15 [place] Rings Not Reportable 01/28/17 05:15 [place] Cells Not Reportable 01/28/17 05:15 Bite Cells Not Reportable 01/28/17 05:15 Crenated Cell Not Reportable 01/28/17 05:15 Elliptocytes Not Reportable 01/28/17 05:15 Acanthocytes (Spur) Not Reportable 01/28/17 05:15 Rouleaux Not Reportable 01/28/17 05:15 Hemoglobin C Crystals Not Reportable 01/28/17 05:15 Schistocytes Not Reportable 01/28/17 05:15 Malaria parasites Not Reportable 01/28/17 05:15 Kevin Bodies Not Reportable 01/28/17 05:15 Hem Pathologist Commnt No 01/28/17 05:15 POC ABG pH 7.492 (7.35-7.45) H 02/04/17 08:54 POC ABG pCO2 37.3 (35-45) 02/04/17 08:54 POC ABG pO2 53 (80-105) L 02/04/17 08:54 POC ABG HCO3 28.5 02/04/17 08:54 POC ABG Total CO2 30 02/04/17 08:54 POC ABG O2 Sat 90 02/04/17 08:54 POC ABG Base Excess 5 02/04/17 08:54 VBG pH 7.210 (7.320-7.420) L 01/26/17 12:23 FiO2 21 % 02/04/17 08:54 Sodium 134 mmol/L (137-145) L 02/05/17 06:29 Potassium 4.3 mmol/L (3.6-5.0) D 02/05/17 06:29 Chloride 94.9 mmol/L (98-107) L 02/05/17 06:29 Carbon Dioxide 25 mmol/L (22-30) 02/05/17 06:29 Anion Gap 18 mmol/L 02/05/17 06:29 BUN 26 mg/dL (9-20) H 02/05/17 06:29 Creatinine 1.3 mg/dL (0.8-1.5) 02/05/17 06:29 Estimated GFR 59 ml/min 02/05/17 06:29 BUN/Creatinine Ratio 20.00 % 02/05/17 06:29 Glucose 306 mg/dL (75-100) H 02/05/17 06:29 POC Glucose 217 (70-105) H 02/04/17 20:23 Hemoglobin A1c 16.1 % (4-6) H 01/27/17 08:29 Lactic Acid 1.1 mmol/L (0.7-2.0) 02/02/17 15:44 Calcium 8.2 mg/dL (8.4-10.2) L 02/05/17 06:29 Phosphorus 3.3 mg/dL (2.5-4.5) 01/31/17 06:07 Magnesium 1.9 mg/dL (1.7-2.3) 02/05/17 06:29 Total Bilirubin 0.5 mg/dL (0.1-1.2) 02/02/17 05:22 Direct Bilirubin < 0.2 mg/dL (0-0.2) 02/02/17 05:22 Indirect Bilirubin 0.3 mg/dL 02/02/17 05:22 AST 10 units/L (5-40) 02/02/17 05:22 ALT 6 units/L (7-56) L 02/02/17 05:22 Alkaline Phosphatase 154 units/L (35-129) H 02/02/17 05:22 Total Creatine Kinase 29 units/L (55-170) L 01/26/17 12:25 CK-MB (CK-2) 1.3 ng/mL (0.0-4.0) 01/26/17 12:25 CK-MB (CK-2) Rel Index 4.4 (0-4) H 01/26/17 12:25 Troponin T < 0.010 ng/mL (0.00-0.029) 01/26/17 12:25 C-Reactive Protein 17.30 mg/dL (0.00-1.30) H 02/02/17 15:44 NT-Pro-B Natriuret Pep 496.5 pg/mL (0-450) H 02/02/17 15:39 Total Protein 6.0 g/dL (6.3-8.2) L 02/02/17 05:22 Albumin 1.8 g/dL (3.9-5) L 02/02/17 05:22 Albumin/Globulin Ratio 0.4 % 02/02/17 05:22 Urine Color Straw (Yellow) 01/26/17 14:26 Urine Turbidity Clear (Clear) 01/26/17 14:26 Urine pH 5.0 (5.0-7.0) 01/26/17 14:26 Ur Specific [place] 1.021 (1.003-1.030) 01/26/17 14:26 Urine Protein 30 mg/dl mg/dL (Negative) 01/26/17 14:26 Urine Glucose (UA) >=500 mg/dL (Negative) 01/26/17 14:26 Urine Ketones 80 mg/dL (Negative) 01/26/17 14:26 Urine Blood Sm (Negative) 01/26/17 14:26 Urine Nitrite Neg (Negative) 01/26/17 14:26 Urine Bilirubin Neg (Negative) 01/26/17 14:26 Urine Urobilinogen < 2.0 mg/dL (<2.0) 01/26/17 14:26 Ur Leukocyte Esterase Neg (Negative) 01/26/17 14:26 Urine WBC (Auto) 2.0 /HPF (0.0-6.0) 01/26/17 14:26 Urine RBC (Auto) 4.0 /HPF (0.0-6.0) 01/26/17 14:26 Urine Bacteria (Auto) 1+ /HPF (Negative) 01/26/17 14:26 Urine Mucus Few /HPF 01/26/17 14:26 Ketones 6.3 mmol/L (-0.28) H 01/26/17 12:23
[2017-02-05] MEDS: PEPCID PO SCH (15:51)
[2017-02-05] MEDS: K-DUR PO SCH (15:51)
[2017-02-05] MEDS: LASIX IV SCH (16:02)
[2017-02-05] MEDS: LOVENOX SUB-Q SCH (16:09)
[2017-02-06 07:04] LABS: Hematocrit 31.8 % (35.5-45.6); Hemoglobin 10.4 gm/dl (11.8-15.2); Mean Corpuscular HGB Conc 33 % (32-34); Mean Corpuscular Hemoglobin 30 pg (28-32); Mean Corpuscular Volume 93 fl (84-94); Platelet Count 502 K/mm3 (140-440); Red Blood Count 3.44 M/mm3 (3.65-5.03); Red Cell Distribution Width 12.9 % (13.2-15.2); White Blood Count 10.9 K/mm3 (4.5-11.0)
[2017-02-06 07:20] LABS: BUN/Creatinine Ratio 23.84; Calcium 8.5 mg/dL (8.4-10.2); Chloride 98.1 mmol/L (98-107); Potassium 4.9 mmol/L (3.6-5.0)
[2017-02-06 08:17] LABS: Anisocytosis 1+; Basophils % (Manual) 0 % (0.0-1.8); Blastocytes % (Manual) 0 %
[2017-02-06 08:18] LABS: Diff Status Complete; Platelet Estimate Appears Increased; Stomatocytes Few
[2017-02-06] MEDS: DUONEB 0.5 MG-3 MG/3 ML SOLN IH SCH ×2 (09:14→13:54)
[2017-02-06] MEDS: LASIX IV SCH (09:37)
[2017-02-06] MEDS: PEPCID PO SCH (09:37)
[2017-02-06] MEDS: LOVENOX SUB-Q SCH (09:37)
[2017-02-06] MEDS: K-DUR PO SCH (09:37)
--- NOTE | 2017-02-06 11:10 | Progress Note ---
Assessment and Plan - Patient Problems (1) Aspiration pneumonia Current Visit: Yes Status: Acute Qualifiers: Aspiration pneumonia type: A Laterality: L Lung location: L (2) Acute hypoxemic respiratory failure Current Visit: Yes Status: Acute (3) DKA (diabetic ketoacidoses) Current Visit: Yes Status: Deleted Qualifiers: Diabetes mellitus type: D Diabetes mellitus complication detail: D (4) Discharge planning issues Current Visit: Yes Status: Acute Subjective Date of service: 02/06/17 Principal diagnosis: Acute Hypoxemic Respiratory Failure; DKA Interval history: Seen and examined at bedside; 24 hour events reviewed; nursing and respiratory care staff consulted; no adverse overnight events reported to me; Objective Vital Signs - 12hr 02/06/17 02/06/17 02/06/17 00:35 01:00 04:35 Temperature 98.0 F 98.3 F Pulse Rate [ 88 72 Apical] Respiratory 18 20 18 Rate Blood Pressure 119/72 103/68 [Right Arm] O2 Sat by Pulse 97 Oximetry 02/06/17 08:00 Temperature 97.2 F L Pulse Rate [ 83 Apical] Respiratory 20 Rate Blood Pressure 124/72 [Right Arm] O2 Sat by Pulse 96 Oximetry Constitutional: no acute distress, alert Eyes: non-icteric ENT: oropharynx moist Neck: supple, no lymphadenopathy Effort: mildly labored Ascultation: Right: rhonchi, Left: clear, Bilateral: rales Cardiovascular: regular rate and rhythm Gastrointestinal: normoactive bowel sounds, soft, non-tender, non-distended Integumentary: normal Extremities: no cyanosis, no edema, pulses normal, no ischemia or petechiae Neurologic: normal mental status, non-focal exam, pupils equal and round, motor strength normal and Psychiatric: mood appropriate, affect normal CBC and BMP: 02/06/17 06:24 02/06/17 06:24 ABG, PT/INR, D-dimer: ABG POC ABG pH 7.492 (7.35-7.45) H 02/04/17 08:54 POC ABG pCO2 37.3 (35-45) 02/04/17 08:54 POC ABG pO2 53 (80-105) L 02/04/17 08:54 POC ABG HCO3 28.5 02/04/17 08:54 POC ABG Total CO2 30 02/04/17 08:54 POC ABG O2 Sat 90 02/04/17 08:54 Abnormal lab findings: Abnormal Labs 01/26/17 01/26/17 01/26/17 20:52 20:52 21:29 RBC Hgb Hct RDW Plt Count Lymph % (Auto) [place] % (Auto) Lymph # [place] # Seg Neutrophils % Seg Neuts % (Manual) Lymphocytes % (Manual) Monocytes % (Manual) Seg Neutrophils # Seg Neutrophils # Man Lymphocytes # (Manual) POC ABG pH POC ABG pCO2 POC ABG pO2 Sodium 135 L Potassium Chloride Carbon Dioxide 18 L BUN 34 H Glucose 198 H POC Glucose 248 H Hemoglobin A1c Calcium 7.9 L Phosphorus 1.8 L D ALT Alkaline Phosphatase C-Reactive Protein NT-Pro-B Natriuret Pep Total Protein Albumin 01/26/17 01/26/17 01/27/17 23:09 23:19 00:22 RBC Hgb Hct RDW Plt Count Lymph % (Auto) [place] % (Auto) Lymph # [place] # Seg Neutrophils % Seg Neuts % (Manual) Lymphocytes % (Manual) Monocytes % (Manual) Seg Neutrophils # Seg Neutrophils # Man Lymphocytes # (Manual) POC ABG pH POC ABG pCO2 POC ABG pO2 Sodium Potassium Chloride Carbon Dioxide 14 L BUN 34 H Glucose 301 H POC Glucose 384 H 339 H Hemoglobin A1c Calcium 7.7 L Phosphorus ALT Alkaline Phosphatase C-Reactive Protein NT-Pro-B Natriuret Pep Total Protein Albumin 01/27/17 01/27/17 01/27/17 00:55 01:22 02:39 RBC Hgb Hct RDW Plt Count Lymph % (Auto) [place] % (Auto) Lymph # [place] # Seg Neutrophils % Seg Neuts % (Manual) Lymphocytes % (Manual) Monocytes % (Manual) Seg Neutrophils # Seg Neutrophils # Man Lymphocytes # (Manual) POC ABG pH POC ABG pCO2 POC ABG pO2 Sodium Potassium Chloride Carbon Dioxide 14 L BUN 33 H Glucose 330 H POC Glucose 301 H 261 H Hemoglobin A1c Calcium 7.5 L Phosphorus ALT Alkaline Phosphatase C-Reactive Protein NT-Pro-B Natriuret Pep Total Protein Albumin 01/27/17 01/27/17 01/27/17 03:47 04:32 04:51 RBC 3.49 L Hgb 10.8 L Hct 31.8 L RDW 12.7 L Plt Count Lymph % (Auto) 10.1 L [place] % (Auto) 10.4 H Lymph # 0.9 L [place] # 0.9 H Seg Neutrophils % 79.3 H Seg Neuts % (Manual) Lymphocytes % (Manual) Monocytes % (Manual) Seg Neutrophils # Seg Neutrophils # Man Lymphocytes # (Manual) POC ABG pH POC ABG pCO2 POC ABG pO2 Sodium Potassium Chloride Carbon Dioxide BUN Glucose POC Glucose 223 H 165 H Hemoglobin A1c Calcium Phosphorus ALT Alkaline Phosphatase C-Reactive Protein NT-Pro-B Natriuret Pep Total Protein Albumin 01/27/17 01/27/17 01/27/17 04:51 06:36 07:40 RBC Hgb Hct RDW Plt Count Lymph % (Auto) [place] % (Auto) Lymph # [place] # Seg Neutrophils % Seg Neuts % (Manual) Lymphocytes % (Manual) Monocytes % (Manual) Seg Neutrophils # Seg Neutrophils # Man Lymphocytes # (Manual) POC ABG pH POC ABG pCO2 POC ABG pO2 Sodium Potassium Chloride 108.0 H Carbon Dioxide 19 L BUN 31 H Glucose 149 H POC Glucose 126 H 152 H Hemoglobin A1c Calcium 8.1 L Phosphorus ALT 5 L Alkaline Phosphatase C-Reactive Protein NT-Pro-B Natriuret Pep Total Protein 6.0 L Albumin 2.5 L 01/27/17 01/27/17 01/27/17 08:29 08:29 08:53 RBC Hgb Hct RDW Plt Count Lymph % (Auto) [place] % (Auto) Lymph # [place] # Seg Neutrophils % Seg Neuts % (Manual) Lymphocytes % (Manual) Monocytes % (Manual) Seg Neutrophils # Seg Neutrophils # Man Lymphocytes # (Manual) POC ABG pH POC ABG pCO2 POC ABG pO2 Sodium Potassium Chloride Carbon Dioxide BUN Glucose POC Glucose 180 H Hemoglobin A1c 16.1 H Calcium Phosphorus 1.1 L D ALT Alkaline Phosphatase C-Reactive Protein NT-Pro-B Natriuret Pep Total Protein Albumin 01/27/17 01/27/17 01/27/17 09:59 11:48 11:53 RBC Hgb Hct RDW Plt Count Lymph % (Auto) [place] % (Auto) Lymph # [place] # Seg Neutrophils % Seg Neuts % (Manual) Lymphocytes % (Manual) Monocytes % (Manual) Seg Neutrophils # Seg Neutrophils # Man Lymphocytes # (Manual) POC ABG pH 7.348 L POC ABG pCO2 30.6 L POC ABG pO2 51 L Sodium Potassium Chloride Carbon Dioxide BUN Glucose POC Glucose 197 H 213 H Hemoglobin A1c Calcium Phosphorus ALT Alkaline Phosphatase C-Reactive Protein NT-Pro-B Natriuret Pep Total Protein Albumin 01/27/17 01/27/17 01/27/17 13:40 16:08 16:26 RBC Hgb Hct RDW Plt Count Lymph % (Auto) [place] % (Auto) Lymph # [place] # Seg Neutrophils % Seg Neuts % (Manual) Lymphocytes % (Manual) Monocytes % (Manual) Seg Neutrophils # Seg Neutrophils # Man Lymphocytes # (Manual) POC ABG pH POC ABG pCO2 POC ABG pO2 Sodium 133 L 135 L Potassium 3.5 L 3.4 L Chloride Carbon Dioxide 18 L 19 L BUN 24 H 23 H Glucose 223 H 200 H POC Glucose 196 H Hemoglobin A1c Calcium 7.5 L 7.9 L Phosphorus ALT Alkaline Phosphatase C-Reactive Protein NT-Pro-B Natriuret Pep Total Protein Albumin 01/27/17 01/27/17 01/28/17 20:16 21:41 05:15 RBC 3.11 L Hgb 9.6 L Hct 28.3 L RDW 12.7 L Plt Count Lymph % (Auto) [place] % (Auto) Lymph # [place] # Seg Neutrophils % Seg Neuts % (Manual) 73.0 H Lymphocytes % (Manual) 9.0 L Monocytes % (Manual) 8.0 H Seg Neutrophils # Seg Neutrophils # Man Lymphocytes # (Manual) 0.8 L POC ABG pH POC ABG pCO2 POC ABG pO2 Sodium 135 L Potassium 3.4 L Chloride Carbon Dioxide 18 L BUN 21 H Glucose 246 H POC Glucose 247 H Hemoglobin A1c Calcium 7.4 L Phosphorus ALT Alkaline Phosphatase C-Reactive Protein NT-Pro-B Natriuret Pep Total Protein Albumin 01/28/17 01/28/17 01/28/17 08:09 09:43 11:35 RBC Hgb Hct RDW Plt Count Lymph % (Auto) [place] % (Auto) Lymph # [place] # Seg Neutrophils % Seg Neuts % (Manual) Lymphocytes % (Manual) Monocytes % (Manual) Seg Neutrophils # Seg Neutrophils # Man Lymphocytes # (Manual) POC ABG pH POC ABG pCO2 POC ABG pO2 Sodium 134 L Potassium 3.4 L Chloride Carbon Dioxide 16 L BUN 21 H Glucose 267 H POC Glucose 212 H 278 H Hemoglobin A1c Calcium 7.6 L Phosphorus ALT Alkaline Phosphatase C-Reactive Protein NT-Pro-B Natriuret Pep Total Protein Albumin 01/28/17 01/28/17 01/28/17 13:35 16:06 21:36 RBC Hgb Hct RDW Plt Count Lymph % (Auto) [place] % (Auto) Lymph # [place] # Seg Neutrophils % Seg Neuts % (Manual) Lymphocytes % (Manual) Monocytes % (Manual) Seg Neutrophils # Seg Neutrophils # Man Lymphocytes # (Manual) POC ABG pH POC ABG pCO2 POC ABG pO2 Sodium Potassium Chloride Carbon Dioxide BUN Glucose POC Glucose 291 H 237 H Hemoglobin A1c Calcium Phosphorus ALT Alkaline Phosphatase C-Reactive Protein 35.80 H NT-Pro-B Natriuret Pep Total Protein Albumin 01/29/17 01/29/17 01/29/17 04:52 07:33 07:56 RBC Hgb Hct RDW Plt Count Lymph % (Auto) [place] % (Auto) Lymph # [place] # Seg Neutrophils % Seg Neuts % (Manual) Lymphocytes % (Manual) Monocytes % (Manual) Seg Neutrophils # Seg Neutrophils # Man Lymphocytes # (Manual) POC ABG pH POC ABG pCO2 27.9 L POC ABG pO2 Sodium 131 L Potassium 3.1 L Chloride 96.9 L Carbon Dioxide 19 L BUN Glucose 256 H POC Glucose 254 H Hemoglobin A1c Calcium 7.6 L Phosphorus 2.1 L D ALT Alkaline Phosphatase C-Reactive Protein NT-Pro-B Natriuret Pep Total Protein Albumin 01/29/17 01/29/17 01/29/17 12:20 16:12 18:20 RBC Hgb Hct RDW Plt Count Lymph % (Auto) [place] % (Auto) Lymph # [place] # Seg Neutrophils % Seg Neuts % (Manual) Lymphocytes % (Manual) Monocytes % (Manual) Seg Neutrophils # Seg Neutrophils # Man Lymphocytes # (Manual) POC ABG pH POC ABG pCO2 POC ABG pO2 Sodium Potassium Chloride Carbon Dioxide BUN Glucose POC Glucose 327 H 357 H 356 H Hemoglobin A1c Calcium Phosphorus ALT Alkaline Phosphatase C-Reactive Protein NT-Pro-B Natriuret Pep Total Protein Albumin 01/29/17 01/30/17 01/30/17 21:29 08:30 12:23 RBC Hgb Hct RDW Plt Count Lymph % (Auto) [place] % (Auto) Lymph # [place] # Seg Neutrophils % Seg Neuts % (Manual) Lymphocytes % (Manual) Monocytes % (Manual) Seg Neutrophils # Seg Neutrophils # Man Lymphocytes # (Manual) POC ABG pH POC ABG pCO2 POC ABG pO2 Sodium Potassium Chloride Carbon Dioxide BUN Glucose POC Glucose 285 H 230 H 245 H Hemoglobin A1c Calcium Phosphorus ALT Alkaline Phosphatase C-Reactive Protein NT-Pro-B Natriuret Pep Total Protein Albumin 01/30/17 01/30/17 01/31/17 15:23 20:32 06:07 RBC Hgb Hct RDW Plt Count Lymph % (Auto) [place] % (Auto) Lymph # [place] # Seg Neutrophils % Seg Neuts % (Manual) Lymphocytes % (Manual) Monocytes % (Manual) Seg Neutrophils # Seg Neutrophils # Man Lymphocytes # (Manual) POC ABG pH POC ABG pCO2 POC ABG pO2 Sodium 134 L Potassium 3.5 L Chloride 94.7 L Carbon Dioxide BUN Glucose 177 H POC Glucose 238 H 214 H Hemoglobin A1c Calcium 7.6 L Phosphorus ALT Alkaline Phosphatase 177 H C-Reactive Protein NT-Pro-B Natriuret Pep Total Protein 6.0 L Albumin 2.0 L 01/31/17 01/31/17 01/31/17 08:37 11:49 18:11 RBC Hgb Hct RDW Plt Count Lymph % (Auto) [place] % (Auto) Lymph # [place] # Seg Neutrophils % Seg Neuts % (Manual) Lymphocytes % (Manual) Monocytes % (Manual) Seg Neutrophils # Seg Neutrophils # Man Lymphocytes # (Manual) POC ABG pH POC ABG pCO2 POC ABG pO2 Sodium Potassium Chloride Carbon Dioxide BUN Glucose POC Glucose 162 H 184 H 162 H Hemoglobin A1c Calcium Phosphorus ALT Alkaline Phosphatase C-Reactive Protein NT-Pro-B Natriuret Pep Total Protein Albumin 01/31/17 02/01/17 02/01/17 20:02 06:52 06:52 RBC 3.00 L Hgb 9.4 L Hct 27.5 L RDW 13.1 L Plt Count Lymph % (Auto) 8.8 L [place] % (Auto) 10.0 H Lymph # 0.9 L [place] # 1.0 H Seg Neutrophils % 80.3 H Seg Neuts % (Manual) Lymphocytes % (Manual) Monocytes % (Manual) Seg Neutrophils # 8.0 H Seg Neutrophils # Man Lymphocytes # (Manual) POC ABG pH POC ABG pCO2 POC ABG pO2 Sodium 136 L Potassium 3.2 L Chloride 95.1 L Carbon Dioxide BUN Glucose 127 H POC Glucose 116 H Hemoglobin A1c Calcium 7.7 L Phosphorus ALT Alkaline Phosphatase C-Reactive Protein NT-Pro-B Natriuret Pep Total Protein Albumin 02/01/17 02/01/17 02/01/17 09:00 12:53 17:47 RBC Hgb Hct RDW Plt Count Lymph % (Auto) [place] % (Auto) Lymph # [place] # Seg Neutrophils % Seg Neuts % (Manual) Lymphocytes % (Manual) Monocytes % (Manual) Seg Neutrophils # Seg Neutrophils # Man Lymphocytes # (Manual) POC ABG pH POC ABG pCO2 POC ABG pO2 Sodium Potassium Chloride Carbon Dioxide BUN Glucose POC Glucose 172 H 138 H 425 H Hemoglobin A1c Calcium Phosphorus ALT Alkaline Phosphatase C-Reactive Protein NT-Pro-B Natriuret Pep Total Protein Albumin 02/02/17 02/02/17 02/02/17 05:22 05:22 07:42 RBC 3.15 L Hgb 9.8 L Hct 28.4 L RDW 13.0 L Plt Count Lymph % (Auto) 8.8 L [place] % (Auto) 8.0 H Lymph # 0.8 L [place] # Seg Neutrophils % 82.3 H Seg Neuts % (Manual) Lymphocytes % (Manual) Monocytes % (Manual) Seg Neutrophils # Seg Neutrophils # Man Lymphocytes # (Manual) POC ABG pH POC ABG pCO2 POC ABG pO2 Sodium 133 L Potassium 3.3 L Chloride 92.7 L Carbon Dioxide BUN Glucose 276 H POC Glucose 271 H Hemoglobin A1c Calcium 7.6 L Phosphorus ALT 6 L Alkaline Phosphatase 154 H C-Reactive Protein NT-Pro-B Natriuret Pep Total Protein 6.0 L Albumin 1.8 L 02/02/17 02/02/17 02/02/17 12:02 15:39 15:44 RBC Hgb Hct RDW Plt Count Lymph % (Auto) [place] % (Auto) Lymph # [place] # Seg Neutrophils % Seg Neuts % (Manual) Lymphocytes % (Manual) Monocytes % (Manual) Seg Neutrophils # Seg Neutrophils # Man Lymphocytes # (Manual) POC ABG pH POC ABG pCO2 POC ABG pO2 Sodium Potassium Chloride Carbon Dioxide BUN Glucose POC Glucose 191 H Hemoglobin A1c Calcium Phosphorus ALT Alkaline Phosphatase C-Reactive Protein 17.30 H NT-Pro-B Natriuret Pep 496.5 H Total Protein Albumin 02/02/17 02/03/17 02/03/17 22:10 08:32 12:48 RBC Hgb Hct RDW Plt Count Lymph % (Auto) [place] % (Auto) Lymph # [place] # Seg Neutrophils % Seg Neuts % (Manual) Lymphocytes % (Manual) Monocytes % (Manual) Seg Neutrophils # Seg Neutrophils # Man Lymphocytes # (Manual) POC ABG pH POC ABG pCO2 POC ABG pO2 Sodium Potassium Chloride Carbon Dioxide BUN Glucose POC Glucose 65 L 239 H 289 H Hemoglobin A1c Calcium Phosphorus ALT Alkaline Phosphatase C-Reactive Protein NT-Pro-B Natriuret Pep Total Protein Albumin 02/03/17 02/03/17 02/04/17 17:12 21:50 07:17 RBC 3.28 L Hgb 10.1 L Hct 29.9 L RDW 12.9 L Plt Count 503 H Lymph % (Auto) [place] % (Auto) Lymph # [place] # Seg Neutrophils % 70.8 H Seg Neuts % (Manual) Lymphocytes % (Manual) Monocytes % (Manual) Seg Neutrophils # Seg Neutrophils # Man Lymphocytes # (Manual) POC ABG pH POC ABG pCO2 POC ABG pO2 Sodium Potassium Chloride Carbon Dioxide BUN Glucose POC Glucose 329 H 158 H Hemoglobin A1c Calcium Phosphorus ALT Alkaline Phosphatase C-Reactive Protein NT-Pro-B Natriuret Pep Total Protein Albumin 02/04/17 02/04/17 02/04/17 07:17 07:17 08:54 RBC Hgb Hct RDW Plt Count Lymph % (Auto) [place] % (Auto) Lymph # [place] # Seg Neutrophils % Seg Neuts % (Manual) Lymphocytes % (Manual) Monocytes % (Manual) Seg Neutrophils # Seg Neutrophils # Man Lymphocytes # (Manual) POC ABG pH 7.492 H POC ABG pCO2 POC ABG pO2 53 L Sodium 136 L Potassium 3.5 L Chloride 94.9 L Carbon Dioxide BUN Glucose 224 H POC Glucose 221 H Hemoglobin A1c Calcium 8.1 L Phosphorus ALT Alkaline Phosphatase C-Reactive Protein NT-Pro-B Natriuret Pep Total Protein Albumin 02/04/17 02/04/17 02/04/17 12:10 16:35 20:23 RBC Hgb Hct RDW Plt Count Lymph % (Auto) [place] % (Auto) Lymph # [place] # Seg Neutrophils % Seg Neuts % (Manual) Lymphocytes % (Manual) Monocytes % (Manual) Seg Neutrophils # Seg Neutrophils # Man Lymphocytes # (Manual) POC ABG pH POC ABG pCO2 POC ABG pO2 Sodium Potassium Chloride Carbon Dioxide BUN Glucose POC Glucose 284 H 178 H 217 H Hemoglobin A1c Calcium Phosphorus ALT Alkaline Phosphatase C-Reactive Protein NT-Pro-B Natriuret Pep Total Protein Albumin 02/05/17 02/05/17 02/05/17 06:29 09:20 11:02 RBC Hgb Hct RDW Plt Count Lymph % (Auto) [place] % (Auto) Lymph # [place] # Seg Neutrophils % Seg Neuts % (Manual) Lymphocytes % (Manual) Monocytes % (Manual) Seg Neutrophils # Seg Neutrophils # Man Lymphocytes # (Manual) POC ABG pH POC ABG pCO2 POC ABG pO2 Sodium 134 L Potassium Chloride 94.9 L Carbon Dioxide BUN 26 H Glucose 306 H POC Glucose 271 H 352 H Hemoglobin A1c Calcium 8.2 L Phosphorus ALT Alkaline Phosphatase C-Reactive Protein NT-Pro-B Natriuret Pep Total Protein Albumin 02/05/17 02/05/17 02/06/17 15:38 21:39 06:24 RBC 3.44 L Hgb 10.4 L Hct 31.8 L RDW 12.9 L Plt Count 502 H Lymph % (Auto) [place] % (Auto) Lymph # [place] # Seg Neutrophils % Seg Neuts % (Manual) 77.0 H Lymphocytes % (Manual) 12.0 L Monocytes % (Manual) Seg Neutrophils # Seg Neutrophils # Man 8.4 H Lymphocytes # (Manual) POC ABG pH POC ABG pCO2 POC ABG pO2 Sodium Potassium Chloride Carbon Dioxide BUN Glucose POC Glucose 403 H 149 H Hemoglobin A1c Calcium Phosphorus ALT Alkaline Phosphatase C-Reactive Protein NT-Pro-B Natriuret Pep Total Protein Albumin 02/06/17 06:24 RBC Hgb Hct RDW Plt Count Lymph % (Auto) [place] % (Auto) Lymph # [place] # Seg Neutrophils % Seg Neuts % (Manual) Lymphocytes % (Manual) Monocytes % (Manual) Seg Neutrophils # Seg Neutrophils # Man Lymphocytes # (Manual) POC ABG pH POC ABG pCO2 POC ABG pO2 Sodium 134 L Potassium Chloride Carbon Dioxide BUN 31 H Glucose 243 H POC Glucose Hemoglobin A1c Calcium Phosphorus ALT Alkaline Phosphatase C-Reactive Protein NT-Pro-B Natriuret Pep Total Protein Albumin
--- NOTE | 2017-02-06 11:35 | Consultation ---
History of Present Illness - Reason for Consult Consult date: 02/06/17 Evaluate for Acute IRU - History of Present Illness 46 y.o. male admitted secondary to nausea, vomiting and generalized weakness for several days. Blood glucose >500 on admission; treated for DKA. Acute care course also notable for acute respiratory failure requiring oxygen, bilateral pneumonia, and acute renal failure. Pt has now been weaned off oxygen and completed ABX; renal function initially returned to normal range, however, BUN again elevated on today; anemia stable. Consult requested for post -acute placement recommendations. Past History Past Medical History: diabetes (IDDM-non compliant) Past Surgical History: valve replacement, Other (left calf debridement) Social history: , lives with family, full code. denies: smoking, alcohol abuse Family history: diabetes Medications and Allergies Allergies Allergy/AdvReac Type Severity Reaction Status Date / Time No Known Allergies Allergy Unverified 01/26/17 11:47 Home Medications Medication Instructions Recorded Confirmed Last Taken Type Insulin NPH Hum/Reg Insulin Hm 25 unit SQ BID 01/26/17 01/26/17 Unknown History [HumuLIN 70-30 Vial] Active Meds: Active Medications Acetaminophen (Tylenol) 650 mg PO Q4H PRN PRN Reason: Non Cardiac Pain or Temp>100.5 Last Admin: 01/31/17 15:37 Dose: 650 mg Al Hydrox/Mg Hydrox/Simethicone (Alum-Mag Hydrox-Simeth [id number]/5ml) 30 ml PO Q4H PRN PRN Reason: Indigestion Albuterol (Proventil) 2.5 mg IH Q4HRT PRN PRN Reason: Shortness Of Breath Albuterol/Ipratropium (Duoneb 0.5 Mg-3 Mg/3 Ml Soln) 1 ampul IH TIDRT SANDHYA Last Admin: 02/06/17 09:14 Dose: 1 ampul Alprazolam (Xanax) 0.5 mg PO Q8H PRN PRN Reason: Anxiety Last Admin: 02/02/17 22:36 Dose: 0.5 mg Bisacodyl (Dulcolax) 10 mg ME QDAY PRN PRN Reason: constipation unrelieved by MOM Dextrose (D50w (25gm)) 0 ml IV PRN PRN PRN Reason: Hypoglycemia Last Admin: 02/02/17 22:34 Dose: 50 ml Enoxaparin Sodium (Lovenox) 40 mg SUB-Q QDAY@1000 [facility], [facility] Last Admin: 02/06/17 09:37 Dose: 40 mg Famotidine (Pepcid) 20 mg PO QDAY [facility], [facility] Last Admin: 02/06/17 09:37 Dose: 20 mg Furosemide (Lasix) 40 mg IV QDAY [facility], [facility] Last Admin: 02/06/17 09:37 Dose: 40 mg Guaifenesin (Robitussin Dm) 10 ml PO Q4H PRN PRN Reason: Cough Last Admin: 02/05/17 03:53 Dose: 10 ml Hydromorphone HCl (Dilaudid) 0.5 mg IV Q8H PRN PRN Reason: Pain , Severe (7-10) Last Admin: 02/01/17 22:40 Dose: 0.5 mg Insulin Human Isoph/Insulin Regular (Novolin 70/30) 22 unit SUB-Q BIDDIAB [facility], [facility] Last Admin: 02/06/17 09:33 Dose: 22 unit Insulin Human Regular (Novolin R) 0 units SUB-Q ACHS [facility], [facility]1983 PRN Reason: Protocol Last Admin: 02/06/17 09:34 Dose: 4 units Magnesium Hydroxide (Milk Of Magnesia) 30 ml PO Q4H PRN PRN Reason: Constipation Ondansetron HCl (Zofran) 4 mg IV Q4H PRN PRN Reason: Nausea And Vomiting Last Admin: 01/30/17 04:33 Dose: 4 mg Potassium Chloride (K-Dur) 20 meq PO QDAY [facility] Last Admin: 02/06/17 09:37 Dose: 20 meq Review of Systems All systems: negative Ears, nose, mouth and throat: no headache Cardiovascular: no chest pain Respiratory: no cough, no shortness of breath Gastrointestinal: no nausea, no vomiting Genitourinary Male: no dysuria Exam - Constitutional Vitals: Vital Signs - 12hr 02/06/17 02/06/17 02/06/17 00:35 01:00 04:35 Temperature 98.0 F 98.3 F Pulse Rate [ 88 72 Apical] Respiratory 18 20 18 Rate Blood Pressure 119/72 103/68 [Right Arm] O2 Sat by Pulse 97 Oximetry 02/06/17 08:00 Temperature 97.2 F L Pulse Rate [ 83 Apical] Respiratory 20 Rate Blood Pressure 124/72 [Right Arm] O2 Sat by Pulse 96 Oximetry General appearance: no acute distress, other (lying in bed; family present and acts as medical aide) - EENT Eyes: EOM intact ENT: hearing intact - Neck Neck: supple, normal ROM - Respiratory Respiratory effort: normal Respiratory: left: wheezing - Cardiovascular Rhythm: regular Heart Sounds: Present: S1 & S2 - Extremities Extremities: No edema - Gastrointestinal General gastrointestinal: Present: soft, non-tender, non-distended, normal bowel sounds - Integumentary Integumentary: Present: clear - Musculoskeletal Musculoskeletal: strength equal bilaterally (5/5 throughout) - Neurologic Neurologic: CNII-XII intact, moves all extremities - Psychiatric Psychiatric: appropriate mood/affect, cooperative - Labs CBC & Chem 7: 02/06/17 06:24 02/06/17 06:24 Labs: Laboratory Results - last 72 hr 02/03/17 02/03/17 02/03/17 08:32 12:48 17:12 WBC RBC Hgb Hct MCV MCH MCHC RDW Plt Count Lymph % (Auto) [place] % (Auto) Eos % (Auto) Baso % (Auto) Lymph # [place] # Eos # Baso # Add Manual Diff Total Counted Seg Neutrophils % Seg Neuts % (Manual) Band Neutrophils % Lymphocytes % (Manual) Reactive Lymphs % (Man) Monocytes % (Manual) Eosinophils % (Manual) Basophils % (Manual) Metamyelocytes % Myelocytes % Promyelocytes % Blast Cells % Nucleated RBC % Seg Neutrophils # Seg Neutrophils # Man Band Neutrophils # Lymphocytes # (Manual) Abs React Lymphs (Man) Monocytes # (Manual) Eosinophils # (Manual) Basophils # (Manual) Metamyelocytes # Myelocytes # Promyelocytes # Blast Cells # WBC Morphology Hypersegmented Neuts Hyposegmented Neuts Hypogranular Neuts Smudge Cells Toxic Granulation Toxic Vacuolation Dohle Bodies Pelger-Huet Anomaly Richard Rods Platelet Estimate Clumped Platelets Plt Clumps, EDTA Large Platelets Giant Platelets Platelet Satelliting Plt Morphology Comment RBC Morphology Dimorphic RBCs Polychromasia Hypochromasia Poikilocytosis Anisocytosis Microcytosis Macrocytosis Spherocytes Pappenheimer Bodies Sickle Cells Target Cells Tear Drop Cells Ovalocytes Stomatocytes Helmet Cells [place] Bodies [place] Rings [place] Cells Bite Cells Crenated Cell Elliptocytes Acanthocytes (Spur) Rouleaux Hemoglobin C Crystals Schistocytes Malaria parasites Kevin Bodies Hem Pathologist Commnt POC ABG pH POC ABG pCO2 POC ABG pO2 POC ABG HCO3 POC ABG Total CO2 POC ABG O2 Sat POC ABG Base Excess FiO2 Sodium Potassium Chloride Carbon Dioxide Anion Gap BUN Creatinine Estimated GFR BUN/Creatinine Ratio Glucose POC Glucose 239 H 289 H 329 H Calcium Magnesium 02/03/17 02/04/17 02/04/17 21:50 07:17 07:17 WBC 8.0 RBC 3.28 L Hgb 10.1 L Hct 29.9 L MCV 91 MCH 31 MCHC 34 RDW 12.9 L Plt Count 503 H Lymph % (Auto) 19.5 [place] % (Auto) 7.3 Eos % (Auto) 1.9 Baso % (Auto) 0.5 Lymph # 1.6 [place] # 0.6 Eos # 0.2 Baso # 0.0 Add Manual Diff Total Counted Seg Neutrophils % 70.8 H Seg Neuts % (Manual) Band Neutrophils % Lymphocytes % (Manual) Reactive Lymphs % (Man) Monocytes % (Manual) Eosinophils % (Manual) Basophils % (Manual) Metamyelocytes % Myelocytes % Promyelocytes % Blast Cells % Nucleated RBC % Seg Neutrophils # 5.7 Seg Neutrophils # Man Band Neutrophils # Lymphocytes # (Manual) Abs React Lymphs (Man) Monocytes # (Manual) Eosinophils # (Manual) Basophils # (Manual) Metamyelocytes # Myelocytes # Promyelocytes # Blast Cells # WBC Morphology Hypersegmented Neuts Hyposegmented Neuts Hypogranular Neuts Smudge Cells Toxic Granulation Toxic Vacuolation Dohle Bodies Pelger-Huet Anomaly Richard Rods Platelet Estimate Clumped Platelets Plt Clumps, EDTA Large Platelets Giant Platelets Platelet Satelliting Plt Morphology Comment RBC Morphology Dimorphic RBCs Polychromasia Hypochromasia Poikilocytosis Anisocytosis Microcytosis Macrocytosis Spherocytes Pappenheimer Bodies Sickle Cells Target Cells Tear Drop Cells Ovalocytes Stomatocytes Helmet Cells [place] Bodies [place] Rings [place] Cells Bite Cells Crenated Cell Elliptocytes Acanthocytes (Spur) Rouleaux Hemoglobin C Crystals Schistocytes Malaria parasites Kevin Bodies Hem Pathologist Commnt POC ABG pH POC ABG pCO2 POC ABG pO2 POC ABG HCO3 POC ABG Total CO2 POC ABG O2 Sat POC ABG Base Excess FiO2 Sodium 136 L Potassium 3.5 L Chloride 94.9 L Carbon Dioxide 28 Anion Gap 17 BUN 18 Creatinine 1.1 Estimated GFR > 60 BUN/Creatinine Ratio 16.36 Glucose 224 H POC Glucose 158 H Calcium 8.1 L Magnesium 1.9 02/04/17 02/04/17 02/04/17 07:17 08:54 12:10 WBC RBC Hgb Hct MCV MCH MCHC RDW Plt Count Lymph % (Auto) [place] % (Auto) Eos % (Auto) Baso % (Auto) Lymph # [place] # Eos # Baso # Add Manual Diff Total Counted Seg Neutrophils % Seg Neuts % (Manual) Band Neutrophils % Lymphocytes % (Manual) Reactive Lymphs % (Man) Monocytes % (Manual) Eosinophils % (Manual) Basophils % (Manual) Metamyelocytes % Myelocytes % Promyelocytes % Blast Cells % Nucleated RBC % Seg Neutrophils # Seg Neutrophils # Man Band Neutrophils # Lymphocytes # (Manual) Abs React Lymphs (Man) Monocytes # (Manual) Eosinophils # (Manual) Basophils # (Manual) Metamyelocytes # Myelocytes # Promyelocytes # Blast Cells # WBC Morphology Hypersegmented Neuts Hyposegmented Neuts Hypogranular Neuts Smudge Cells Toxic Granulation Toxic Vacuolation Dohle Bodies Pelger-Huet Anomaly Richard Rods Platelet Estimate Clumped Platelets Plt Clumps, EDTA Large Platelets Giant Platelets Platelet Satelliting Plt Morphology Comment RBC Morphology Dimorphic RBCs Polychromasia Hypochromasia Poikilocytosis Anisocytosis Microcytosis Macrocytosis Spherocytes Pappenheimer Bodies Sickle Cells Target Cells Tear Drop Cells Ovalocytes Stomatocytes Helmet Cells [place] Bodies [place] Rings [place] Cells Bite Cells Crenated Cell Elliptocytes Acanthocytes (Spur) Rouleaux Hemoglobin C Crystals Schistocytes Malaria parasites Kevin Bodies Hem Pathologist Commnt POC ABG pH 7.492 H POC ABG pCO2 37.3 POC ABG pO2 53 L POC ABG HCO3 28.5 POC ABG Total CO2 30 POC ABG O2 Sat 90 POC ABG Base Excess 5 FiO2 21 Sodium Potassium Chloride Carbon Dioxide Anion Gap BUN Creatinine Estimated GFR BUN/Creatinine Ratio Glucose POC Glucose 221 H 284 H Calcium Magnesium 02/04/17 02/04/17 02/05/17 16:35 20:23 06:29 WBC RBC Hgb Hct MCV MCH MCHC RDW Plt Count Lymph % (Auto) [place] % (Auto) Eos % (Auto) Baso % (Auto) Lymph # [place] # Eos # Baso # Add Manual Diff Total Counted Seg Neutrophils % Seg Neuts % (Manual) Band Neutrophils % Lymphocytes % (Manual) Reactive Lymphs % (Man) Monocytes % (Manual) Eosinophils % (Manual) Basophils % (Manual) Metamyelocytes % Myelocytes % Promyelocytes % Blast Cells % Nucleated RBC % Seg Neutrophils # Seg Neutrophils # Man Band Neutrophils # Lymphocytes # (Manual) Abs React Lymphs (Man) Monocytes # (Manual) Eosinophils # (Manual) Basophils # (Manual) Metamyelocytes # Myelocytes # Promyelocytes # Blast Cells # WBC Morphology Hypersegmented Neuts Hyposegmented Neuts Hypogranular Neuts Smudge Cells Toxic Granulation Toxic Vacuolation Dohle Bodies Pelger-Huet Anomaly Richard Rods Platelet Estimate Clumped Platelets Plt Clumps, EDTA Large Platelets Giant Platelets Platelet Satelliting Plt Morphology Comment RBC Morphology Dimorphic RBCs Polychromasia Hypochromasia Poikilocytosis Anisocytosis Microcytosis Macrocytosis Spherocytes Pappenheimer Bodies Sickle Cells Target Cells Tear Drop Cells Ovalocytes Stomatocytes Helmet Cells [place] Bodies [place] Rings [place] Cells Bite Cells Crenated Cell Elliptocytes Acanthocytes (Spur) Rouleaux Hemoglobin C Crystals Schistocytes Malaria parasites Kevin Bodies Hem Pathologist Commnt POC ABG pH POC ABG pCO2 POC ABG pO2 POC ABG HCO3 POC ABG Total CO2 POC ABG O2 Sat POC ABG Base Excess FiO2 Sodium 134 L Potassium 4.3 D Chloride 94.9 L Carbon Dioxide 25 Anion Gap 18 BUN 26 H Creatinine 1.3 Estimated GFR 59 BUN/Creatinine Ratio 20.00 Glucose 306 H POC Glucose 178 H 217 H Calcium 8.2 L Magnesium 1.9 02/05/17 02/05/17 02/05/17 09:20 11:02 15:38 WBC RBC Hgb Hct MCV MCH MCHC RDW Plt Count Lymph % (Auto) [place] % (Auto) Eos % (Auto) Baso % (Auto) Lymph # [place] # Eos # Baso # Add Manual Diff Total Counted Seg Neutrophils % Seg Neuts % (Manual) Band Neutrophils % Lymphocytes % (Manual) Reactive Lymphs % (Man) Monocytes % (Manual) Eosinophils % (Manual) Basophils % (Manual) Metamyelocytes % Myelocytes % Promyelocytes % Blast Cells % Nucleated RBC % Seg Neutrophils # Seg Neutrophils # Man Band Neutrophils # Lymphocytes # (Manual) Abs React Lymphs (Man) Monocytes # (Manual) Eosinophils # (Manual) Basophils # (Manual) Metamyelocytes # Myelocytes # Promyelocytes # Blast Cells # WBC Morphology Hypersegmented Neuts Hyposegmented Neuts Hypogranular Neuts Smudge Cells Toxic Granulation Toxic Vacuolation Dohle Bodies Pelger-Huet Anomaly Richard Rods Platelet Estimate Clumped Platelets Plt Clumps, EDTA Large Platelets Giant Platelets Platelet Satelliting Plt Morphology Comment RBC Morphology Dimorphic RBCs Polychromasia Hypochromasia Poikilocytosis Anisocytosis Microcytosis Macrocytosis Spherocytes Pappenheimer Bodies Sickle Cells Target Cells Tear Drop Cells Ovalocytes Stomatocytes Helmet Cells [place] Bodies [place] Rings [place] Cells Bite Cells Crenated Cell Elliptocytes Acanthocytes (Spur) Rouleaux Hemoglobin C Crystals Schistocytes Malaria parasites Kevin Bodies Hem Pathologist Commnt POC ABG pH POC ABG pCO2 POC ABG pO2 POC ABG HCO3 POC ABG Total CO2 POC ABG O2 Sat POC ABG Base Excess FiO2 Sodium Potassium Chloride Carbon Dioxide Anion Gap BUN Creatinine Estimated GFR BUN/Creatinine Ratio Glucose POC Glucose 271 H 352 H 403 H Calcium Magnesium 02/05/17 02/06/17 02/06/17 21:39 06:24 06:24 WBC 10.9 RBC 3.44 L Hgb 10.4 L Hct 31.8 L MCV 93 MCH 30 MCHC 33 RDW 12.9 L Plt Count 502 H Lymph % (Auto) [place] % (Auto) Eos % (Auto) Baso % (Auto) Lymph # [place] # Eos # Baso # Add Manual Diff Complete Total Counted 100 Seg Neutrophils % Seg Neuts % (Manual) 77.0 H Band Neutrophils % 3.0 Lymphocytes % (Manual) 12.0 L Reactive Lymphs % (Man) 0 Monocytes % (Manual) 2.0 Eosinophils % (Manual) 1.0 Basophils % (Manual) 0 Metamyelocytes % 4.0 Myelocytes % 1.0 Promyelocytes % 0 Blast Cells % 0 Nucleated RBC % Not Reportable Seg Neutrophils # Seg Neutrophils # Man 8.4 H Band Neutrophils # 0.3 Lymphocytes # (Manual) 1.3 Abs React Lymphs (Man) 0.0 Monocytes # (Manual) 0.2 Eosinophils # (Manual) 0.1 Basophils # (Manual) 0.0 Metamyelocytes # 0.4 Myelocytes # 0.1 Promyelocytes # 0.0 Blast Cells # 0.0 WBC Morphology Not Reportable Hypersegmented Neuts Not Reportable Hyposegmented Neuts Not Reportable Hypogranular Neuts Not Reportable Smudge Cells Not Reportable Toxic Granulation Not Reportable Toxic Vacuolation Not Reportable Dohle Bodies Not Reportable Pelger-Huet Anomaly Not Reportable Richard Rods Not Reportable Platelet Estimate Appears increased Clumped Platelets Not Reportable Plt Clumps, EDTA Not Reportable Large Platelets Not Reportable Giant Platelets Not Reportable Platelet Satelliting Not Reportable Plt Morphology Comment Not Reportable RBC Morphology Not Reportable Dimorphic RBCs Not Reportable Polychromasia Not Reportable Hypochromasia Not Reportable Poikilocytosis Not Reportable Anisocytosis 1+ Microcytosis Not Reportable Macrocytosis Not Reportable Spherocytes Not Reportable Pappenheimer Bodies Not Reportable Sickle Cells Not Reportable Target Cells Not Reportable Tear Drop Cells Not Reportable Ovalocytes Not Reportable Stomatocytes Few Helmet Cells Not Reportable [place] Bodies Not Reportable [place] Rings Not Reportable [place] Cells Not Reportable Bite Cells Not Reportable Crenated Cell Not Reportable Elliptocytes Not Reportable Acanthocytes (Spur) Not Reportable Rouleaux Not Reportable Hemoglobin C Crystals Not Reportable Schistocytes Not Reportable Malaria parasites Not Reportable Kevin Bodies Not Reportable Hem Pathologist Commnt No POC ABG pH POC ABG pCO2 POC ABG pO2 POC ABG HCO3 POC ABG Total CO2 POC ABG O2 Sat POC ABG Base Excess FiO2 Sodium 134 L Potassium 4.9 Chloride 98.1 Carbon Dioxide 22 Anion Gap 19 BUN 31 H Creatinine 1.3 Estimated GFR 59 BUN/Creatinine Ratio 23.84 Glucose 243 H POC Glucose 149 H Calcium 8.5 Magnesium Assessment and Plan Patient was assessed and evaluated for Acute Inpatient Rehab Unit. 46 y.o. male s/p DKA, bilateral pneumonia, respiratory failure requiring oxygen, a cute renal failure. Pt and family report that patient has been mobilizing in room with and without assistance; however, PT evaluation is pending. Pt lives with and son who are available to provide support in the home. Anticipate patient with be able to d/c home with home health PT. Will F/U after PT evaluation has been completed if recommendations change; case discussed with IM and CM. - Patient Problems (1) Diabetes Current Visit: Yes Status: Acute Qualifiers: Diabetes mellitus type: type 1 Diabetes mellitus complication status: with hyperglycemia Diabetes mellitus complication detail: D Diabetic retinopathy severity: D Proliferative retinopathy type: P Diabetes mellitus macular edema: D Diabetes mellitus alf insulin use: D Laterality: L Chronic kidney disease stage: C Qualified Code(s): E10.65 - Type 1 diabetes mellitus with hyperglycemia (2) Bilateral pulmonary infiltrates on chest x-ray Current Visit: Yes Status: Acute (3) Acute hypoxemic respiratory failure Current Visit: Yes Status: Acute (4) Acute renal failure Current Visit: Yes Status: Acute Qualifiers: Acute renal failure type: with acute tubular necrosis Qualified Code(s): N17.0 - Acute kidney failure with tubular necrosis
--- NOTE | 2017-02-06 13:23 | Progress Note ---
Assessment and Plan Assessment and plan: --Bilateral aspiration pneumonia/persistent patchy infiltrates Received full course of antibiotics monitor off antibiotics, oxygen and nebulizers as needed Anticipate chronic and ongoing need for home oxygen, with the periodic follow-up evaluation by pulmonary as outpatient --Acute hypoxic hypercapnic respiratory failure, aspiration pneumonia In terms slightly improved, off antibiotics --Diabetic ketoacidosis, resolved --Type 2 diabetes mellitus Moderate control, Accu-Chek sliding scale coverage and ADA diet Increase insulin dose --Acute renal failure, resolved --Moderate protein calorie malnutrition Supportive care nutrition supplements --DVT prophylaxis with Lovenox Discharge planning; Not a candidate for acute rehabilitation Possible discharge home with home health and home oxygen Anticipate chronic and ongoing need for home oxygen with periodic follow-up evaluations By art therapy certified supervisor as outpatient Plan of care discussed with the patient, his family members, art therapy certified supervisor, is nurse as well as the case management Mack discharge in 1-2 days if stable History Interval history: Patient seen and evaluated medical records reviewed No new events reported by the nursing staff Patient complains of mild shortness of breath, currently on nasal cannula oxygen Acute rehabilitation evaluated the patient not a candidate for inpatient rehabilitation Patient has no new complaints alert awake oriented 3 not in acute distress Hospitalist Physical - Constitutional Vitals: Temp Pulse Resp BP Pulse Ox 97.2 F L 86 20 124/72 98 02/06/17 08:00 02/06/17 09:25 02/06/17 09:25 02/06/17 08:00 02/06/17 09:14 General appearance: Present: no acute distress, cachectic, other (0) - EENT Eyes: Present: PERRL, EOM intact - Neck Neck: Present: supple, normal ROM - Respiratory Respiratory effort: normal Respiratory: bilateral: diminished, rhonchi - Cardiovascular Rhythm: regular Heart Sounds: Present: S1 & S2 - Extremities Extremities: no ischemia, pulses intact, pulses symmetrical Peripheral Pulses: within normal limits - Abdominal General gastrointestinal: soft, non-tender, non-distended, normal bowel sounds - Integumentary Integumentary: Present: clear, warm - Psychiatric Psychiatric: appropriate mood/affect, cooperative - Neurologic Neurologic: CNII-XII intact, moves all extremities Results - Labs CBC & Chem 7: 02/06/17 06:24 02/06/17 06:24 Labs: Laboratory Last Values WBC 10.9 K/mm3 (4.5-11.0) 02/06/17 06:24 RBC 3.44 M/mm3 (3.65-5.03) L 02/06/17 06:24 Hgb 10.4 gm/dl (11.8-15.2) L 02/06/17 06:24 Hct 31.8 % (35.5-45.6) L 02/06/17 06:24 MCV 93 fl (84-94) 02/06/17 06:24 MCH 30 pg (28-32) 02/06/17 06:24 MCHC 33 % (32-34) 02/06/17 06:24 RDW 12.9 % (13.2-15.2) L 02/06/17 06:24 Plt Count 502 K/mm3 (140-440) H 02/06/17 06:24 Lymph % (Auto) 19.5 % (13.4-35.0) 02/04/17 07:17 Smith % (Auto) 7.3 % (0.0-7.3) 02/04/17 07:17 Eos % (Auto) 1.9 % (0.0-4.3) 02/04/17 07:17 Baso % (Auto) 0.5 % (0.0-1.8) 02/04/17 07:17 Lymph # 1.6 K/mm3 (1.2-5.4) 02/04/17 07:17 Smith # 0.6 K/mm3 (0.0-0.8) 02/04/17 07:17 Eos # 0.2 K/mm3 (0.0-0.4) 02/04/17 07:17 Baso # 0.0 K/mm3 (0.0-0.1) 02/04/17 07:17 Add Manual Diff Complete 02/06/17 06:24 Total Counted 100 02/06/17 06:24 Seg Neutrophils % 70.8 % (40.0-70.0) H 02/04/17 07:17 Seg Neuts % (Manual) 77.0 % (40.0-70.0) H 02/06/17 06:24 Band Neutrophils % 3.0 % 02/06/17 06:24 Lymphocytes % (Manual) 12.0 % (13.4-35.0) L 02/06/17 06:24 Reactive Lymphs % (Man) 0 % 02/06/17 06:24 Monocytes % (Manual) 2.0 % (0.0-7.3) 02/06/17 06:24 Eosinophils % (Manual) 1.0 % (0.0-4.3) 02/06/17 06:24 Basophils % (Manual) 0 % (0.0-1.8) 02/06/17 06:24 Metamyelocytes % 4.0 % 02/06/17 06:24 Myelocytes % 1.0 % 02/06/17 06:24 Promyelocytes % 0 % 02/06/17 06:24 Blast Cells % 0 % 02/06/17 06:24 Nucleated RBC % Not Reportable 02/06/17 06:24 Seg Neutrophils # 5.7 K/mm3 (1.8-7.7) 02/04/17 07:17 Seg Neutrophils # Man 8.4 K/mm3 (1.8-7.7) H 02/06/17 06:24 Band Neutrophils # 0.3 K/mm3 02/06/17 06:24 Lymphocytes # (Manual) 1.3 K/mm3 (1.2-5.4) 02/06/17 06:24 Abs React Lymphs (Man) 0.0 K/mm3 02/06/17 06:24 Monocytes # (Manual) 0.2 K/mm3 (0.0-0.8) 02/06/17 06:24 Eosinophils # (Manual) 0.1 K/mm3 (0.0-0.4) 02/06/17 06:24 Basophils # (Manual) 0.0 K/mm3 (0.0-0.1) 02/06/17 06:24 Metamyelocytes # 0.4 K/mm3 02/06/17 06:24 Myelocytes # 0.1 K/mm3 02/06/17 06:24 Promyelocytes # 0.0 K/mm3 02/06/17 06:24 Blast Cells # 0.0 K/mm3 02/06/17 06:24 WBC Morphology Not Reportable 02/06/17 06:24 Hypersegmented Neuts Not Reportable 02/06/17 06:24 Hyposegmented Neuts Not Reportable 02/06/17 06:24 Hypogranular Neuts Not Reportable 02/06/17 06:24 Smudge Cells Not Reportable 02/06/17 06:24 Toxic Granulation Not Reportable 02/06/17 06:24 Toxic Vacuolation Not Reportable 02/06/17 06:24 Dohle Bodies Not Reportable 02/06/17 06:24 Pelger-Huet Anomaly Not Reportable 02/06/17 06:24 Richard Rods Not Reportable 02/06/17 06:24 Platelet Estimate Appears increased 02/06/17 06:24 Clumped Platelets Not Reportable 02/06/17 06:24 Plt Clumps, EDTA Not Reportable 02/06/17 06:24 Large Platelets Not Reportable 02/06/17 06:24 Giant Platelets Not Reportable 02/06/17 06:24 Platelet Satelliting Not Reportable 02/06/17 06:24 Plt Morphology Comment Not Reportable 02/06/17 06:24 RBC Morphology Not Reportable 02/06/17 06:24 Dimorphic RBCs Not Reportable 02/06/17 06:24 Polychromasia Not Reportable 02/06/17 06:24 Hypochromasia Not Reportable 02/06/17 06:24 Poikilocytosis Not Reportable 02/06/17 06:24 Anisocytosis 1+ 02/06/17 06:24 Microcytosis Not Reportable 02/06/17 06:24 Macrocytosis Not Reportable 02/06/17 06:24 Spherocytes Not Reportable 02/06/17 06:24 Pappenheimer Bodies Not Reportable 02/06/17 06:24 Sickle Cells Not Reportable 02/06/17 06:24 Target Cells Not Reportable 02/06/17 06:24 Tear Drop Cells Not Reportable 02/06/17 06:24 Ovalocytes Not Reportable 02/06/17 06:24 Stomatocytes Few 02/06/17 06:24 Helmet Cells Not Reportable 02/06/17 06:24 [place] Bodies Not Reportable 02/06/17 06:24 [place] Rings Not Reportable 02/06/17 06:24 [place] Cells Not Reportable 02/06/17 06:24 Bite Cells Not Reportable 02/06/17 06:24 Crenated Cell Not Reportable 02/06/17 06:24 Elliptocytes Not Reportable 02/06/17 06:24 Acanthocytes (Spur) Not Reportable 02/06/17 06:24 Rouleaux Not Reportable 02/06/17 06:24 Hemoglobin C Crystals Not Reportable 02/06/17 06:24 Schistocytes Not Reportable 02/06/17 06:24 Malaria parasites Not Reportable 02/06/17 06:24 Kevin Bodies Not Reportable 02/06/17 06:24 Hem Pathologist Commnt No 02/06/17 06:24 POC ABG pH 7.492 (7.35-7.45) H 02/04/17 08:54 POC ABG pCO2 37.3 (35-45) 02/04/17 08:54 POC ABG pO2 53 (80-105) L 02/04/17 08:54 POC ABG HCO3 28.5 02/04/17 08:54 POC ABG Total CO2 30 02/04/17 08:54 POC ABG O2 Sat 90 02/04/17 08:54 POC ABG Base Excess 5 02/04/17 08:54 VBG pH 7.210 (7.320-7.420) L 01/26/17 12:23 FiO2 21 % 02/04/17 08:54 Sodium 134 mmol/L (137-145) L 02/06/17 06:24 Potassium 4.9 mmol/L (3.6-5.0) 02/06/17 06:24 Chloride 98.1 mmol/L (98-107) 02/06/17 06:24 Carbon Dioxide 22 mmol/L (22-30) 02/06/17 06:24 Anion Gap 19 mmol/L 02/06/17 06:24 BUN 31 mg/dL (9-20) H 02/06/17 06:24 Creatinine 1.3 mg/dL (0.8-1.5) 02/06/17 06:24 Estimated GFR 59 ml/min 02/06/17 06:24 BUN/Creatinine Ratio 23.84 % 02/06/17 06:24 Glucose 243 mg/dL (75-100) H 02/06/17 06:24 POC Glucose 149 (70-105) H 02/05/17 21:39 Hemoglobin A1c 16.1 % (4-6) H 01/27/17 08:29 Lactic Acid 1.1 mmol/L (0.7-2.0) 02/02/17 15:44 Calcium 8.5 mg/dL (8.4-10.2) 02/06/17 06:24 Phosphorus 3.3 mg/dL (2.5-4.5) 01/31/17 06:07 Magnesium 1.9 mg/dL (1.7-2.3) 02/05/17 06:29 Total Bilirubin 0.5 mg/dL (0.1-1.2) 02/02/17 05:22 Direct Bilirubin < 0.2 mg/dL (0-0.2) 02/02/17 05:22 Indirect Bilirubin 0.3 mg/dL 02/02/17 05:22 AST 10 units/L (5-40) 02/02/17 05:22 ALT 6 units/L (7-56) L 02/02/17 05:22 Alkaline Phosphatase 154 units/L (35-129) H 02/02/17 05:22 Total Creatine Kinase 29 units/L (55-170) L 01/26/17 12:25 CK-MB (CK-2) 1.3 ng/mL (0.0-4.0) 01/26/17 12:25 CK-MB (CK-2) Rel Index 4.4 (0-4) H 01/26/17 12:25 Troponin T < 0.010 ng/mL (0.00-0.029) 01/26/17 12:25 C-Reactive Protein 17.30 mg/dL (0.00-1.30) H 02/02/17 15:44 NT-Pro-B Natriuret Pep 496.5 pg/mL (0-450) H 02/02/17 15:39 Total Protein 6.0 g/dL (6.3-8.2) L 02/02/17 05:22 Albumin 1.8 g/dL (3.9-5) L 02/02/17 05:22 Albumin/Globulin Ratio 0.4 % 02/02/17 05:22 Urine Color Straw (Yellow) 01/26/17 14:26 Urine Turbidity Clear (Clear) 01/26/17 14:26 Urine pH 5.0 (5.0-7.0) 01/26/17 14:26 Ur Specific [place] 1.021 (1.003-1.030) 01/26/17 14:26 Urine Protein 30 mg/dl mg/dL (Negative) 01/26/17 14:26 Urine Glucose (UA) >=500 mg/dL (Negative) 01/26/17 14:26 Urine Ketones 80 mg/dL (Negative) 01/26/17 14:26 Urine Blood Sm (Negative) 01/26/17 14:26 Urine Nitrite Neg (Negative) 01/26/17 14:26 Urine Bilirubin Neg (Negative) 01/26/17 14:26 Urine Urobilinogen < 2.0 mg/dL (<2.0) 01/26/17 14:26 Ur Leukocyte Esterase Neg (Negative) 01/26/17 14:26 Urine WBC (Auto) 2.0 /HPF (0.0-6.0) 01/26/17 14:26 Urine RBC (Auto) 4.0 /HPF (0.0-6.0) 01/26/17 14:26 Urine Bacteria (Auto) 1+ /HPF (Negative) 01/26/17 14: Urine Mucus Few /HPF 01/26/17 14:26 Ketones 6.3 mmol/L (-0.28) H 01/26/17 12:23
--- NOTE | 2017-02-06 15:28 | Discharge Summary ---
Providers - Providers Date of Admission: 01/26/17 20:40 Date of discharge: 02/06/17 Attending physician: BERYL PRICE 01/27/17 11:10 Consult to Physician [CONS] Routine Consulting Provider: GHAZALA MARIE Reason For Exam: CRITICAL CARE Place consult to:: DR. MARIE Notified:: YES 02/05/17 13:07 Consult Acute Rehabilitation [CONS] Routine Consulting Provider: BRINA MULLINS Reason For Exam: acute rehab screen 02/05/17 17:24 Physical Therapy Evaluation and Treat [CONS] Routine Comment: Reason For Exam: s/p resp failure; debility Primary care physician: TELEPHONE AD TAKER Hospitalization Condition: Critical Disposition: DC/[place] HOME UNDER HOME HEALTH Core Measure Documentation - Palliative Care Palliative Care/ Comfort Measures: Not Applicable - Core Measures Any of the following diagnoses?: none Exam - Constitutional Vitals: Temp Pulse Resp BP Pulse Ox 97.5 F L 100 H 20 78/44 97 02/06/17 12:30 02/06/17 14:05 02/06/17 14:05 02/06/17 12:30 02/06/17 12:30 General appearance: Present: no acute distress, well-nourished - EENT Eyes: Present: PERRL, EOM intact ENT: hearing intact, clear oral mucosa, dentition normal - Neck Neck: Present: supple, normal ROM - Respiratory Respiratory effort: normal Respiratory: bilateral: diminished, rhonchi - Cardiovascular Rhythm: regular Heart Sounds: Present: S1 & S2 - Extremities Extremities: no ischemia, pulses intact, pulses symmetrical Peripheral Pulses: within normal limits - Abdominal General gastrointestinal: Present: soft, non-tender, non-distended, normal bowel sounds - Integumentary Integumentary: Present: clear, warm - Musculoskeletal Musculoskeletal: strength equal bilaterally - Psychiatric Psychiatric: appropriate mood/affect, cooperative - Neurologic Neurologic: CNII-XII intact, moves all extremities Plan Activity: advance as tolerated Diet: diabetic Durable Medical Equipment Needed Upon Discharge: Oxygen (2 L via nasal cannula) Follow up with: PRIMARY CAREMD [Primary Care Provider] - 3-5 Days GHAZALA MARIE MD [Staff Physician] - 7 Days Prescriptions: ALBUTEROL Inhaler [ProAir HFA Inhaler] 2 puff IH QID PRN #1 inhalation PRN Reason: Shortness Of Breath ALPRAZolam [Xanax TAB] 0.5 mg PO QHS PRN #10 tablet PRN Reason: Anxiety guaiFENesin DM [Robitussin Dm] 10 ml PO Q4H PRN 10 Days PRN Reason: Cough Insulin NPH Hum/Reg Insulin Hm [HumuLIN 70-30 Vial] 25 unit SQ BID 30 Days Insulin Regular, Human [HumuLIN R] 0 units SUB-Q ACHS 30 Days
[2017-02-06 19:17] VITALS: BP 97/61
== END 2017-02-06 19:58 | disposition home or self-care (01) | DRG 177 ==
LOC: ED 11:38 → CC1 20:40 → 4A 01-29 17:23
PROVIDERS: ADMIT Internal Medicine; ATTEND Internal Medicine
PROC: 4A033R1 Measurement of Arterial Saturation, Peripheral, Percutaneous Approach (ICD-10-PCS; principal; 2017-02-04)
DX: J69.0 Pneumonitis due to inhalation of food and vomit (principal); E13.10 Other specified diabetes mellitus with ketoacidosis without coma; N17.0 Acute kidney failure with tubular necrosis; J96.01 Acute respiratory failure with hypoxia; E44.0 Moderate protein-calorie malnutrition; E83.39 Other disorders of phosphorus metabolism; Z83.3 Family history of diabetes mellitus; Z95.2 Presence of prosthetic heart valve; Z79.4 Long term (current) use of insulin; Z91.19 Patient's noncompliance with other medical treatment and regimen; Z68.20 Body mass index [BMI] 20.0-20.9, adult
CPT/HCPCS: 36415; 36600; 71010; 71020; 71260; 80048; 80053; 80074; 81001; 82010; 82140; 82550; 82553; 82803; 82805; 82962; 83036; 83735; 83880; 84100; 84484; 85007; 85025; 86140; 87040; 87205; 93005; 93010; 93306; 94640; 94760; 96361; 96374; 96375; 99291; J1170; J1650; J1815; J1940; J1956; J2405; J3475; J7030; J7040; J7050; Q9967